=== PATIENT | male | born 1945 | race Caucasian/White ===

== ENCOUNTER 2025-02-25 12:38 | Inpatient (IN) | payer MEDICARE, BC, SELFPAY ==
[2025-02-25] VITALS (14 sets, daily range): BP systolic 136–161; BP diastolic 70–81; PULSE 81–98; RESP 12–19; TEMP 36.6–37.4; O2SAT 95–100; BMI 25.9
--- NOTE | ~2025-02-25 | XR_ITS ---
EXAMINATION: XR knee LT 3V, XR knee RT 3V DATE: 02/25/2025 16:36 INDICATION: Bilateral knee pain post fall TECHNIQUE: 1. Anteroposterior, oblique and crosstable lateral views of the right knee were obtained 2. Anteroposterior, oblique and crosstable lateral views of the left knee were obtained COMPARISON: None. FINDINGS: Right knee: Alignment is normal. No fracture. Joint spaces appear normal but could be underestimated on nonweight bearing imaging. Enthesophytes at the tibial and patellar insertions of the distal quadriceps and pro ximal patellar tendons. No joint effusion/layering lipohemarthrosis. Soft tissues are unremarkable. Left knee: Alignment is normal. No fracture. Joint spaces appear normal but could be underestimated on nonweight bearing imaging. Enthesophytes at the tibial and patellar insertions of the distal quadriceps and pro ximal patellar tendons. No joint effusion/layering lipohemarthrosis. Soft tissues are unremarkable. IMPRESSION: 1. No joint effusions or acute osseous abnormality at either knee. Reviewed, dictated and finalized at location A. IMPRESSION: 1. No joint effusions or acute osseous abnormality at either knee.
--- NOTE | ~2025-02-25 | XR_ITS ---
EXAMINATION: XR pelvis 1-2V DATE: 02/25/2025 16:36 INDICATION: Pelvic pain post fall. Unable to get up. TECHNIQUE: An anteroposterior view of the pelvis was obtained. COMPARISON: None. FINDINGS: Bone alignment is normal. No fracture. L4 laminectomy. L3-L5 instrumented posterior spinal fusion wit h bilateral vertical makayla and pedicle screw fixation. Mild to moderate bilateral hip and sacroiliac os teoarthritis. Soft tissues are unremarkable. IMPRESSION: 1. 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 No acute osseous abnormality. Reviewed, dictated and finalized at location A. IMPRESSION: 1. 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 No acute osseo us abnormality.
--- NOTE | ~2025-02-25 | CT_ITS ---
History: Blunt head trauma PROCEDURE: CT head without contrast. COMPARISON: None TECHNIQUE: Axial imaging of the head performed from the skull base to the vertex without IV contrast. Sagittal a nd coronal reformations obtained. DLP: 757 mGy-cm FINDINGS: The ventricles are enlarged. The dilatation of the ventricles is proportional to the degree of sulcal prominence, not uncommon in the senescent brain. Decreased attenuation is identified within the periventricular white matter, likely secondary to micr ovascular ischemic disease, in a patient of this age. There is no mass, mass effect or midline shift. There is no abnormal extra-axial fluid collection or intracranial hemorrhage. Visualized paranasal sinuses are clear. The mastoid air cells are well aerated. No acute displaced fractures within the overlying cranium. Impression: No acute intracranial hemorrhage or suspicious mass effect. Reviewed, dictated and finalized at location A. Impression: No acute intracranial hemorrhage or suspicious mass effect.
--- NOTE | ~2025-02-25 | XR_ITS ---
EXAMINATION: XR chest 1V portable DATE: 02/27/2025 08:34 INDICATION: Altered mental status TECHNIQUE: frontal view of the chest was obtained. COMPARISON: None FINDINGS: Linear discoid atelectasis at the lateral left lower lung zone. No other airspace opacities, pulmonar y edema, pleural effusion or pneumothorax. The cardiomediastinal silhouette is normal. Moderate osteo arthritis at the right glenohumeral joint. Anterior plate-screw fixation for lower cervical and submi tted anterior spinal fusion. IMPRESSION: 1. Mild discoid atelectasis in the left lower lung zone. No other acute cardiopulmonary disease. Reviewed, dictated and finalized at location A. IMPRESSION: 1. Mild discoid atelectasis in the left lower lung zone. No other acute cardiop ulmonary disease.
--- OUTSIDE RECORDS SUMMARY | 2025-02-25 12:40 | XMS_ITS | Referral Summary ---
Author Organization [facility] Address [address] [place] [address] Care Team Providers Care School Lunch Monitor Name Role Phone Suhas Lockhart MD Unavailable [phone] Holly Arrieta OD Unavailable [phone] Neo Sykes MD Unavailable Morales Palumbo MD Unavailable [phone] Royal Jarrell Howe MD Unavailable [phone] Kenroy Gaviria MD Unavailable Palak Lees NP Primary Care Provider Veronica Betancur RN Unavailable Encounters Date Type Department Care Team Description 01/14/2025 Telephone Family Care at [address] [address] Palak Lees NP Medical Question/Miscellaneous from Last 3 Months Allergies Active Allergy Reactions Criticality Noted Date Comments Quinapril Cough Low 08/25/2008 Medications nicotine polacrilex (NICORETTE) 4 mg gum Chew 1 each (4 mg total) as needed for smoking cessation Active finasteride (PROSCAR) 5 mg tabletIndications: benign prostatic hyperplasia with lower urinary tract sx Take 1 tablet (5 mg total) by mouth nightly 09/07/19 21 Active aspirin 81 mg enteric coated tablet Take 1 tablet (81 mg total) by mouth daily Active sennosides (SENNA LAXATIVE ORAL)Indications:c onstipation Take 1 tablet by mouth daily. Indications: constipation Active polyethylene glycol 3350 (MIRALAX ORAL)Indications:c onstipation Take 17 g by mouth daily. Indications: constipation Active famotidine (PEPCID) 20 mg tabletIndications: Gastroesophageal reflux disease without esophagitis Take 1 tablet (20 mg total) by mouth nightly as needed for heartburn 90 tablet 04/08/20 23 Active tamsulosin (FLOMAX) 0.4 mg extended release capsule Take 1 capsule (0.4 mg total) by mouth every morning 90 capsule 3 04/15/20 23 Active lactulose solution 10 gram/15mL Take 30 mL (20 g total) by mouth daily as needed (Constipation (no stools in 2-3 days)) 473 mL 3 05/20/20 23 Active Linzess 145 mcg capsuleIndications :Chronic constipation TAKE 1 CAPSULE BY MOUTH DAILY 90 capsule 3 06/14/20 23 Active blood-glucose transmitter ([employer] G6 Transmitter) deviceIndications: Type 2 diabetes mellitus with hyperlipidemia ([facility]),Controlled type 2 diabetes mellitus with hyperglycemia, with long-term current use of insulin ([facility]) Use to continuously monitor blood glucose 1 each 07/09/20 23 Active fluticasone propionate (FLONASE) 50 mcg/actuation nasal sprayIndications:C hronic bronchitis, unspecified chronic bronchitis type ([facility]) Administer 2 sprays into each nostril daily as needed for rhinitis 1 each 07/09/20 23 Active lancets miscIndications:Ty pe 2 diabetes mellitus with hyperlipidemia ([facility]),Uncontrolled type 2 diabetes mellitus with hyperglycemia ([facility]) Test blood sugar three times daily 300 each 3 09/05/[address] (PROTONIX) 40 mg EC tabletIndications: Gastroesophageal reflux disease without esophagitis Take 1 tablet (40 mg total) by mouth creeler before breakfast 90 tablet 3 05/21/20 24 025 Active gabapentin (NEURONTIN) 100 mg capsuleIndications :Neuropathic Pain Take 1 capsule (100 mg total) by mouth 3 (three) times a day 270 capsule 3 05/21/20 24 025 Active triamcinolone (KENALOG) 0.1 % ointmentIndication s:skin rash Apply topically 2 (two) times a day Lower legs 90 g 06/01/20 24 Active insulin glargine (LANTUS) 100 unit/mL (3 mL) pen for injectionIndicatio ns:Uncontrolled type 2 diabetes mellitus with hyperglycemia (HCC) INJECT 40 TO 50 UNITS SUBCUTANEOUSLY IN THE MORNING 45 mL 3 06/01/20 24 Active atorvastatin (LIPITOR) 80 mg tabletIndications: Uncontrolled type 2 diabetes mellitus with hyperglycemia (HCC),Coronary artery disease of [place] artery of [place] heart with stable angina pectoris,Mixed hyperlipidemia Take 1 tablet (80 mg total) by mouth daily 90 tablet 1 06/01/20 24 025 Active albuterol HFA (PROVENTIL HFA,VENTOLIN HFA,PROAIR HFA) 90 mcg/actuation inhalerIndications :Chronic bronchitis, unspecified chronic bronchitis type (HCC) Inhale 2 puffs every 4 (four) hours as needed for wheezing or shortness of breath 1 each 1 06/01/20 24 Active blood-glucose sensor deviceIndications: Type 2 diabetes mellitus with hyperlipidemia (HCC),Controlled type 2 diabetes mellitus with hyperglycemia, with long-term current use of insulin ([facility]) Use to continuously monitor blood sugar 1 each 06/29/20 24 Active budesonide-formote roL (SYMBICORT) 160-4.5 mcg/actuation inhalerIndications :Chronic bronchitis, unspecified chronic bronchitis type (HCC) USE 2 INHALATIONS BY MOUTH TWICE DAILY RINSE MOUTH AFTER USE DO NOT SWALLOW 30.6 g 3 08/18/19 25 Active glyBURIDE (DIABETA) 5 mg tabletIndications: Uncontrolled type 2 diabetes mellitus with hyperglycemia (HCC) TAKE 1 TABLET BY MOUTH TWICE DAILY WITH MEALS 180 tablet 3 08/18/19 25 Active metoprolol tartrate (LOPRESSOR) 50 mg immediate release tabletIndications: Hypertension complicating diabetes (HCC) TAKE 1 TABLET BY MOUTH EVERY NIGHT 90 tablet 3 08/18/19 25 Active Active Problems Problem Noted Date Diagnosed Date Fecal impaction 01/11/2023 Moderate malnutrition 10/22/2022 E coli bacteremia 10/22/2022 History of ulcerative colitis 10/22/2022 Gram-negative bacteremia 10/16/2022 s/p CE/ PCIOL /iris hooks OD (07/09/22) 07/10/20 22 Assessment & Plan (09/27/2022 11:34 AM ROLLER BEARING INSPECTOR): 3 month post op VA ph 20/40 OD with Mrx Ana drops did not help blurred vision OD Tr PCF OD, monitor for now Raffi OD (08/09/22): 0.93D of cyl - no SR Mac OCT (08/09/22): WNL / no cme PLAN MRx given today OU RTC 3 months w/ repeat MRx and confocal Assessment & Plan (08/30/2022 12:07 PM ROLLER BEARING INSPECTOR): 2 month post op VA ph 20/40 Faint D folds paracentrally - trial Ana gtts OD 3-4x/day in AM hrs Tr PCF Raffi OD at last visit: 0.93D of cyl - no SR Mac OCT at last visit: WNL / no cme PLAN PF QD OD for 2 weeks then stop RTC 1 mo with repeat MRx Assessment & Plan (08/09/2022 11:44 AM ROLLER BEARING INSPECTOR): 1 month post op VA 20/30 Tr cor edema temporally - clear centrally Tr PCF no cell or flare OD but still reports blurred vision OD IOP 12 Raffi OD today: 0.93D of cyl - no SR Mac OCT today: WNL / no cme PLAN PF BID until out Recheck MRx next visit RTC 1 mo Assessment & Plan (07/13/2022 9:17 AM ROLLER BEARING INSPECTOR): Improved VA (ph 20/40) Excellent IOP Decreased sup edema (1+) / C/F On Saturday change from TD to PF OD QID RTC 1 mo Assessment & Plan (07/10/2022 8:16 AM ROLLER BEARING INSPECTOR): 1 day post op CE/PCIOL/iris hooks OD VA and IOP as expected TD OD qid RTC Fri am Combined forms of age-related cataract of right eye 04/17/2022 Assessment & Plan (04/17/2022 2:27 PM CDT): BAT 20/100 Decreased ADLs(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 The patient understands these risks and wishes to proceed. Primary osteoarthritis of knees, bilateral 12/05 Quadriceps weakness 12/05/2021 Cyclical vomiting syndrome not associated with m igraine 11/23/2021 Assessment & Plan (11/23/2021 2:48 PM CDT): -ordered referral to GI -prescribed Zofran Chronic pain of right knee 11/23/2021 Post-nasal drip 03/18/2021 Assessment & Plan (03/18/2021 2:34 PM CDT): Start flonase 2 sprays daily Recommend ENT consultation for postnasal drip and dysphagia. Oropharyngeal dysphagia 03/18/2021 Assessment & Plan (03/18/2021 2:34 PM CDT): Recommend ENT consultation for postnasal drip and dysphagia. Overweight (BMI 25.0-29.9) 03/18/2021 Assessment & Plan (03/18/2021 2:37 PM CDT): -Body mass index is 28.13 kg/m . For a healthy weight should have BMI between 20-24.9 kg/m2. -Discussed with patient My[employer]ate dietary and exercise recommendations, 30 minutes moderate activity at least 5 days per week. (150 minutes total). -Discussed risk factors associated with obesity including risk for diabetes, hypertension, hyperlipidemia, and some types of cancer. 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 Unfortunately he is not very happy with his result however I told him that anatomically everything looks perfect and I did not think any other retinal intervention is necessary. I have encouraged him to keep his scheduled point with Dr. Martínez. He would like a second opinion and will arrange for him to meet one of our anterior segment surgeons for another opinion. Assessment & Plan (10/24/2020 4:10 PM CDT): Has persistent pain, without signs intra-ocular infection. He does have a mild episcleritis associated with the sutures at the limbus. I have asked that he increase his Pred Forte to every 2 hours, and stay on his other topical drops. I have asked that he see Dr. Martínez tomorrow morning for evaluation of the sutures and to assess whether the sutures need to be removed. (Dr. Martínez was kind enough to discuss the case with me this afternoon.) Assessment & Plan (10/07/2020 8:27 AM ROLLER BEARING INSPECTOR): Here for IOP check off diamox. IOP consistent at 9. Discontinue lumigan OS, stay of PO diamox. Continue other post-operative meds (Predforte, polytrim, bromfenac). Med list updated. Patient reassured that erythema is improving and will resolve with time. Stable vision and lack of cell or hypopyon are reassuring that he is not developing endophthalmitis Return to clinic for post-op week 1 appointment. Altitude precautions reviewed. Assessment & Plan (10/05/2020 8:39 AM ROLLER BEARING INSPECTOR): One day status post PPV/PPLx/AFx to the left eye. Doing well. Restart polytrim and prednisolone 4x/day, lumigan and prolensa 1x/day. Shield operated eye. Can stop neptazane. Post Op Position:None. Altitude precautions were reviewed with patient. No strenuous activity. Return to clinic in Saturday for IOP check. Assessment & Plan (10/02/2020 1:21 PM ROLLER BEARING INSPECTOR): IOP okay, vision/cornea improving Continue to monitor with plan for surgery Saturday All questions regarding surgery answered Assessment & Plan (09/30/2020 12:28 PM ROLLER BEARING INSPECTOR): Intra-ocular pressure is good at 15 today, corneal edema is present. He is currently using pole lens the Polytrim antibiotics Pred Forte Neptazane and Lumigan. I have encouraged him to stay on his topical regimen unfortunately he does not have his medications with him today. Will arrange to check his pressure over the weekend, and make preparations for surgery which would include vitrectomy and lensectomy to the left eye on Saturday. Risks, benefits and alternatives for surgery include by not limited to infection, bleeding, damage to the eye, loss of vision, loss of the eye,deformity, diplopia, increased IOP, cataract, need for new refraction, RD, RT, gas injection, post op positioning, altitude precautions, silicone oil placement, need for additional surgery, inflammation to one or both eyes, no guarantees were made, and the guarded prognosis was discussed with the patient. Reviewed with them that is a teaching institution and that trainees, medical students, residents, fellows may be involved in their care and may be preforming parts of the procedure, however an attending doctor would be present to assure everything went as well as possible.They understand and wish to proceed. Nuha Hogan - [phone] () 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 His discomfort is variably described as left parasternal, left chest discomfort, and left upper abdominal quadrant. No response to sublingual nitroglycerin. Recent electrocardiogram unremarkable. Plan: Lexiscan stress test Chronic bronchitis 05/05/2020 Assessment & Plan (07/25/2023 12:11 PM ROLLER BEARING INSPECTOR): Albuterol 90 mcg HFA, symbicort 160/4.5 mcg Assessment & Plan (03/18/2021 2:32 PM CDT): Continue Spiriva, Symbicort 2 puffs BID rinse mouth after use. Albuterol PRN. LAW requested from pulmonology notes today. Reviewed warning signs and symptoms of when to seek emergency care including shortness of breath unrelieved with albuterol inhaler. Pulmonology consult as previously ordered. Discussed importance of seeing specialist. Recommend pulmonary function studies, but considering I would like him to see pulmonology will defer testing to pulmonology. Assessment & Plan (12/28/2020 11:55 AM CDT): Restart Symbicort 2 puffs BID rinse mouth after use. Albuterol PRN. Add Spiriva once daily. Can continue tessalon Perles PRN Reviewed warning signs and symptoms of when to seek emergency care including shortness of breath unrelieved with albuterol inhaler. Pulmonology consult as previously ordered. Discussed importance of seeing specialist. Recommend pulmonary function studies, but considering I would like him to see pulmonology will defer testing to pulmonology. Assessment & Plan (05/09/2020 1:04 PM CDT): Restart Symbicort 2 puffs BID rinse mouth after use. Albuterol PRN. Reviewed warning signs and symptoms of when to seek emergency care including shortness of breath unrelieved with albuterol inhaler. Chest tightness 05/05/2020 Assessment & Plan (05/09/2020 1:02 PM CDT): Recommended follow up with his resource paraprofessional as soon as possible. CXR ordered today. Reordered nitroglycerine to use PRN. Discussed safety of use. Discussed warning signs of when to seek emergency care for chest pain including chest pain that does not go away, severe in nature, associated dizziness, shortness of breath or fatigue. 07/11/2018 Negative pharmacologic stress ECG. Seasonal allergies 05/05/2020 Assessment & Plan (05/09/2020 1:05 PM CDT): Add Flonase 2 sprays each nostril daily. Incontinence of feces 02/03/2020 Assessment & Plan (02/03/2020 12:27 PM CDT): Recommended consultation with Colorectal surgery given history of rectal surgeries in the 1980s and 90s. Microalbuminuria 05/05/2019 Overview (05/05/2019): 05/05/2019 repeat in 3 months. Assessment & Plan (05/09/2020 1:05 PM CDT): Repeat today. Benign prostatic hyperplasia with urinary hesita ncy 05/01/2019 Assessment & Plan (05/09/2020 1:01 PM CDT): Recommend keeping follow-up with Urology. Continue tamsulosin. Patient reports taking BID. Assessment & Plan (05/01/2019 9:19 PM CDT): Recommended Urology consultation. Continue tamsulosin 0.4 mg b.i.d.. Will get PSA today. Anxiety 05/01/2019 Assessment & Plan (07/25/2023 12:10 PM ROLLER BEARING INSPECTOR): Briefly discussed options for treatment (therapy vs medication vs both) Assessment & Plan (05/01/2019 9:20 PM CDT): Discussed that Xanax t.i.d. Is not appropriate treatment for underlying anxiety. If he is needing treatment for anxiety we can discuss other long-term options. He is taking Xanax very infrequent, will discontinue at this time. 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 Whether his episodic dyspnea represents a symptom of ischemic heart disease is unclear. Several years since his last evaluation. Will arrange for a Lexiscan stress test. It appears that he stopped aspirin. He has been asked to resume this. Continue Lipitor. Assessment & Plan (11/23/2021 2:41 PM CDT): -encouraged to continue taking medications as prescribed Assessment & Plan (03/18/2021 2:33 PM CDT): Lipids due 04/2021 Continue atorvastatin 40 mg daily, gemfibrozil 600 mg bid, aspirin 81 mg daily. Recommend working with endocrinology for tight glucose control. Nitroglycerin reordered to use as needed for angina. Assessment & Plan (05/09/2020 1:04 PM CDT): Patient will schedule follow-up with his resource paraprofessional. Continue atorvastatin 40 mg daily, aspirin 81 mg daily. Recommend working with endocrinology for tight glucose control. Nitroglycerin reordered to use as needed for angina. Assessment & Plan (02/03/2020 12:27 PM CDT): Recommended follow-up with Cardiology annually. Continue statin, antihypertensives, strict diabetes control and aspirin. Spent a significant amount of time discussing importance of compliance of medical therapy and importance of regular follow-up with his specialists and blue line trimmer. Assessment & Plan (05/29/2019 10:26 AM CDT): Doing well. Continue current therapy. Assessment & Plan (05/01/2019 9:18 PM CDT): Recommended follow-up with Cardiology annually. Continue statin, antihypertensives, strict diabetes control and aspirin. Spent a significant amount of time discussing importance of compliance of medical therapy and importance of regular follow-up with his specialists and blue line trimmer. Assessment & Plan (01/31/2018 2:20 PM CDT): Appears to be well controlled on his current regimen. Discontinue Plavix as it no longer appears to be necessary Type 2 diabetes mellitus with hyperlipidemia ([facility] S/HCC) 09/12/2016 Overview (10/31/2016): Hyperlipidemia Assessment & Plan (07/25/2023 12:08 PM ROLLER BEARING INSPECTOR): Ordered Dexcom continuous glucometer and supplies Lantus 40-50 units qam Glyburide 5 mg Gabapentin 100 mg TID Lab Results Component Value Date HGBA1C 8.5 04/08/2023 Assessment & Plan (08/15/2022 4:53 PM ROLLER BEARING INSPECTOR): Recent lipid panel reveals a total cholesterol of 153 mg/dL. LDL can not be calculated because of excessive triglycerides which are likely result of the patient's poorly controlled diabetes. Continue Lipitor. Assessment & Plan (03/18/2021 2:34 PM CDT): Lipids due 04/2021. Stable. Continue current therapy. Assessment & Plan (05/11/2020 2:11 PM CDT): Last lipid panel reviewed with patient. His LDL at that time was 57 mg/dL. Continue current therapy. Assessment & Plan (05/09/2020 1:05 PM CDT): Lipid abnormalities are unchanged. Nutritional counseling was provided., Pharmacotherapy as ordered. Lipids due today. Lipids will be reassessed in 3 months. Assessment & Plan (02/03/2020 12:28 PM CDT): Lipid abnormalities are unchanged. Nutritional counseling was provided., Pharmacotherapy as ordered. Lipids due April 2020 Lipids will be reassessed in 3 months. Assessment & Plan (05/29/2019 10:27 AM CDT): Well controlled based on most recent lipid panel. Continue current therapy. Of note, records indicate that he has not been taking Lopid for over a year so will remove that agent from his medication list Assessment & Plan (05/01/2019 9:16 PM CDT): Lipid abnormalities are Going to be assessed today. Nutritional counseling was provided., Pharmacotherapy as ordered. and Will request records from blue line trimmer. See note below Lipids will be reassessed in 3 months. Assessment & Plan (01/31/2018 2:19 PM CDT): Office lipid panel demonstrates significant elevation in triglycerides. Patient reports that his diabetes is very poorly controlled likely as an explanation for this finding. Plan: Obtain a direct LDL Uncontrolled type 2 diabetes mellitus with hyper glycemia 09/12/2016 Overview (11/01/2016): Complication due to diabetes mellitus type 2 Assessment & Plan (07/09/2024 1:17 PM ROLLER BEARING INSPECTOR): Today's A1c 9.6 Reasonable goal less than 7.5 Medication compliance seems to be an issue, I do also note some mild memory impairment today CGM with continuous use Cream.HR Tammy Continue insulin glargine 40-50 units daily a.m. Glimepiride 5 mg b.I.d. with meal Encouraged to take medications daily as prescribed Three-month follow-up for Medicare wellness Assessment & Plan (11/23/2021 2:46 PM CDT): -encouraged to keep all appointments with endocrine -continue taking medications as prescribed Assessment & Plan (03/18/2021 2:37 PM CDT): Continue with Dr. Gaviria. If making adjustments to his insulin recommended conversation with his endocrinology team. He is sometimes nonadherent to his therapy, which is likely contributing to his uncontrolled and erratic blood sugars. Recommend dilated eye exam. Discussed importance of foot care. Discussed complications of uncontrolled diabetes including risk for diabetic retinopathy, neuropathy, risk for heart attack and stroke, nephropathy. Lab Results Component Value Date HGBA1C 10.6 12/23/2020 Has endocrinology follow up in 2 weeks and will have a1c retested at that time. Assessment & Plan (12/28/2020 11:53 AM CDT): Recommend regular follow up with endocrinology and medications as ordered. He would like a new blue line trimmer. Recommend Dr. Gaviria. I discussed with him that with his severely uncontrolled diabetes and complications of diabetes and insulin regimen he needs to see endocrinology. Recommend dilated eye exam. Discussed importance of foot care. Discussed complications of uncontrolled diabetes including risk for diabetic retinopathy, neuropathy, risk for heart attack and stroke, nephropathy. Assessment & Plan (06/30/2020 1:02 PM ROLLER BEARING INSPECTOR): Hba1c was Lab Results Component Value Date HGBA1C 9.1 06/30/2020 today, indicating poor DM control Goal blood sugars in the 120-150 range , with Hb1c under 7.0 % was explained 1800 calorie, consistent carb diet recommended. No more than 30-45 grams of carbs per meal recommended, as well as avoiding high concentrated sweet drinks . 25-45 min daily exercise, combining both aerobic and resistance exercise recommended. The need to monitor blood glucose before meals and bedtime was discussed. Prevention and treatment of hyypoglcyemia discussed. Pt with multiple concepts and ideas, Not following instructions . Your goal sugar is 120-150 Check your sugars twice a day, before breakfast and dinner Take Lantus, 60 units once a day Take 12 units of Novolog with breakfast and dinner If your sugars are over 200, take 15 units Assessment & Plan (05/09/2020 1:06 PM CDT): Continue regular follow up with endocrinology and medications as ordered. Recommend dilated eye exam. Discussed importance of foot care. Discussed complications of uncontrolled diabetes including risk for diabetic retinopathy, neuropathy, risk for heart attack and stroke, nephropathy. Assessment & Plan (02/16/2020 10:18 AM CDT): Hba1c was Lab Results Component Value Date HGBA1C 12.3 02/16/2020 today, indicating very poor DM control, in a patient with very poor insight into his condition . 1800 calorie, consistent carb diet recommended. No more than 30-45 grams of carbs per meal recommended, as well as avoiding high concentrated sweet drinks . 25-45 min daily exercise, combining both aerobic and resistance exercise recommended. The need to monitor blood glucose before meals and bedtime or at least , twice a day was discussed. Prevention and treatment of hyypoglcyemia discussed. Insulin dose: Take Lantus insulin , 50 units twice a day , morning and bedtime Take Novolog, 15 units with your meals, at least twice a day. If your sugars are over 200, take 20 units If your sugars are over 300,take 25 units Start Invokana, 100 mg daily Assessment & Plan (02/03/2020 12:26 PM CDT): Diabetes is worsening. Continue current treatment regimen. Reminded to bring in blood sugar diary at next visit. Dietary recommendations for ADA diet. Discussed sick day management. Discussed foot care. Reminded to get yearly retinal exam. Patient referred to endocrinology at [facility]. He has not followed up with his previous blue line trimmer in months. Discussed importance of taking insulin as prescribed. Will refill his Lantus until he gets into endocrinology. Diabetes will be reassessed in 3 months. Assessment & Plan (05/01/2019 9:19 PM CDT): Diabetes is unchanged. Continue current treatment regimen. Reminded to bring in blood sugar diary at next visit. Dietary recommendations for ADA diet. Discussed sick day management. Discussed foot care. Reminded to get yearly retinal exam. Patient sees endocrinology, records requested today. Discussed regular followups with endocrinology until glucose is controlled. Diabetes will be reassessed in 3 months. Hypertension complicating diabetes 11/02/2015 Overview (10/31/2016): Essential hypertension Assessment & Plan (07/25/2023 12:05 PM ROLLER BEARING INSPECTOR): Today's BP is 146/79 goal is < 140/90 amlodipine 5 mg, metoprolol 50 mg, and valsartan 160 mg Assessment & Plan (07/26/2022 7:54 AM ROLLER BEARING INSPECTOR): -goal is < 140/90 -amlodipine 5 mg, metoprolol 50 mg, and valsartan 160 mg -encouraged patient to eat a well-balanced heart healthy diet, drink plenty of water, be active for at least 10 minutes a day, and get at least 7 hours of quality sleep daily Assessment & Plan (11/23/2021 2:40 PM CDT): -encouraged patient to take all of her medications as prescribed -encouraged patient to eat a well-balanced heart healthy diet, drink plenty of water, be active for at least 10 minutes a day, and get at least 7 hours of quality sleep daily Assessment & Plan (03/18/2021 2:33 PM CDT): Hypertension is improving with treatment. Continue current treatment regimen. Dietary sodium restriction. Continue current medications. Blood pressure will be reassessed at the next regular appointment. Assessment & Plan (06/30/2020 1:03 PM ROLLER BEARING INSPECTOR): Goal blood pressure is less than 140/85 Low salt diet was discussed andd recommended The importance of daily aerobic exercise was also emphasized. Continue current meds, including GINGER-I or ARB, e.g. Check microalbumin Assessment & Plan (05/11/2020 2:10 PM CDT): Currently well controlled. Continue current therapy. Assessment & Plan (05/09/2020 1:05 PM CDT): Hypertension is improving with treatment. Continue current treatment regimen. Dietary sodium restriction. Continue current medications. Blood pressure will be reassessed at the next regular appointment. Assessment & Plan (02/03/2020 12:27 PM CDT): Hypertension is improving with treatment. Continue current treatment regimen. Dietary sodium restriction. Continue current medications. Blood pressure will be reassessed at the next regular appointment. Assessment & Plan (05/29/2019 10:27 AM CDT): Reasonably well controlled. Continue current therapy. Assessment & Plan (05/01/2019 9:17 PM CDT): Hypertension is improving with treatment. Continue current treatment regimen. Dietary sodium restriction. Continue current medications. Will request records to review antihypertensive regimen. Patient reports being on metoprolol 50 mg daily, however previous records in 2018 note 50 mg b.i.d.. Blood pressure will be reassessed at the next regular appointment. Assessment & Plan (01/31/2018 2:20 PM CDT): Blood pressure reasonably well controlled. Continue current therapy. 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 S/P coronary artery stent placement 11/03/2010 Assessment & Plan (05/01/2019 9:15 PM CDT): Recommended follow-up with Cardiology. Continue aspirin and statin. Epididymoorchitis Resolved Problems Problem Noted Date Diagnosed Date Resolved Date UTI (urinary tract infection) 01/11/2023 01/11/2023 Sepsis, due to unspecified o rganism, unspecified whether acute organ dysfunction present 10/15/2022 01/11/2023 S/p CE/pciol w/ iris hooks OS(07/09/22) 07/10/2022 07/10/2022 Urinary incontinence 02/03/2020 021 Assessment & Plan (05/09/2020 1:07 PM CDT): Patient will be evaluated by urology 05/12/2020. Previously saw Dr. Lara for BPH and hesitancy. Assessment & Plan (02/03/2020 12:29 PM CDT): Hyperglycemia likely contributing, however patient has had history of BPH and hesitancy, previously saw Dr. Lara. Recommended urology consultation. Herpes zoster 04/09/2019 02/03/2020 Assessment & Plan (05/01/2019 9:16 PM CDT): Record follow up with optimal discussed importance of comprehensive eye exam given location of shingles. Dyspnea on exertion 05/17/2016 04/09/20 19 Overview (10/31/2016): Dyspnea on exertion Atherosclerosis of coronary artery 11/02/2015 04/09/2019 Overview (10/31/2016): Coronary atherosclerosis Myocardial infarction 11/02/20152018 Overview (10/31/2016): Myocardial infarction Urinary tract infection without hematuria 01/12/2023 Immunizations Immunization Administration Dates Next Due Influenza, Quadrivalent, Hig h Dose, Preservative Free, Intrr 05/02/2020 Influenza, Trivalent, High D ose, Split, Preservative Free, Intramuscular 05/03/2019,04/02/2018 Influenza, Unspecified 03/12/2023(Deferr ed: Patient Refused),09/21/2022(Deferred: Patient Refused),06/28/2022(Deferred: Patient Refused),05/02/2022,06/28/2021(Deferre d: Patient Refused),05/05/2021(Deferred: Patient Refused) Moderna SARS-CoV-2 Monovalen t Vaccination (12+ YRS) 09/27/2020,09/01/2020 Pneumococcal Conjugate PCV 13 05/03/2019 Pneumococcal, Unspecified 07/29/2016,07/29/2016 Tetanus Toxoid, Unspecified 07/29/2015, 6 Social History Tobacco Use Types Packs/Day Years Used Date Smoking Tobacco: Former Cigarettes 1 5 1 985 - 1990 Smokeless Tobacco: Never Tobacco Cessation:Counseling Given: No Alcohol Use Standard Drinks/Week Comments No 0 (1 standard drink = 0.6 oz pur e alcohol) OASIS D0700: Social Isolation Answer Da te Recorded Frequency of experiencing loneliness or isolatio n Never 11/15/2022 OASIS A1250: Transportation Answer Date Recorded Lack of Transportation (Medical) No 11/15/2022 Lack of Transportation (Non-Medical) No 11/15/2022 Patient Unable or Declines to Respond No 11/15/2022 OASIS B1300: Health Literacy Answer Teja e Recorded Frequency of needing help to read materials from doctor or pharmacy Never 11/15/2022 AUDIT-C Answer Date Recorded Q1: How often do you have a drink containing alcohol? Never 07/09/2022 Q2: How many drinks containi ng alcohol do you have on a typical day when you are drinking? Patient does not drink Q3: How often do you have si x or more drinks on one occasion? Never 07/09/2022 PHQ-2 Answer Date Recorded PHQ-2 Total Score 0 06/01/2024 PHQ-9 Answer Date Recorded PHQ-9 Total Score 0 06/01/2024 Personal Safety Answer Date Recorded Have you ever been in or are you currently in a harmful physical or emotional relationship or is someone making you feel afraid or unsafe? Denies 01/10/2023 Sex and Gender Information Value Date Recorded Sex Assigned at Not on file Legal Sex Male 4:08 PM ROLLER BEARING INSPECTOR Gender Identity Not on file Sexual Orientation Not on file Last Filed Vital Signs Vital Sign Reading Time Taken Comments Blood Pressure 145/69 06/01/2024 1:20 PM ROLLER BEARING INSPECTOR Pulse 82 06/01/2024 12:43 PM ROLLER BEARING INSPECTOR Temperature 36.2 C (97.1 F) 04/08/2023 8:12 AM CDT Respiratory Rate 20 06/01/2024 12:43 PM ROLLER BEARING INSPECTOR Oxygen Saturation 96% 04/08/2023 8:12 AM CDT Inhaled Oxygen Concentration - - Weight 77.1 kg (170 lb) 06/01/2024 12:43 PM ROLLER BEARING INSPECTOR Height 182.9 cm (6' 0.01) 06/01/2024 12:[address] Body Mass Index 23.05 06/01/2024 12:43 PM ROLLER BEARING INSPECTOR Plan of Treatment Not on file Medical Devices Implanted Type Area Machine Wiper Device Identifier Shelf Expiration Date Model / Serial / Lot [employer] [id number] 21.0 Tecnis Optiedge 6mm 13mm 3 Piece Anterior Aspheric Monofocal Uv - [id number] - [id number] Implanted:Qty: 1 on 09/28/2020 by Chip Martínez MD at [facility] Lens Left: Eye [employer] [id number] 06/02/2024 [id number] / [id number] / [employer] Acrysof Iq Natural Stableforce Acrysert 6mm 13mm 1 Piece Foldable [id number].210 - [id number] - [id number] Implanted:Qty: 1 on 07/09/2022 by Chin Steele MD at [facility] Lens Right: Lens [employer] [id number] 01/10/2027 [id number].21 0 / [id number] / Procedures Procedure Name Priority Date/Time Associated Diagnosis Comments POCT HEMOGLOBIN A1C Routine 06/01/2024 1 :44 PM ROLLER BEARING INSPECTOR Uncontrolled type 2 diabetes mellitus with hyperglycemia (HCC) DIABETIC EYE EXAM Routine 01/10/2024 EGFR Routine 07/09/2023 2:09 PM ROLLER BEARING INSPECTOR Annual physical exam Type 2 diabetes mellitus with hyperlipidemia (HCC) Hypertension complicating diabetes (HCC) Coronary artery disease of [place] artery of [place] heart with stable angina pectoris LIPID PANEL Routine 07/09/2023 2:09 PM ROLLER BEARING INSPECTOR Annual physical exam ALBUMIN CREATININE RATIO, URINE Routine 07/09/2023 2:09 PM ROLLER BEARING INSPECTOR Microalbuminuria from Last 3 Months or Most Recently Relevant to Health Maintenance Results * POCT hemoglobin A1c (06/01/2024 1:44 PM ROLLER BEARING INSPECTOR) Hemoglobin A1C, POC 9.6 4.0 - 5.6 % Blood 06/01/2024 1:44 PM ROLLER BEARING INSPECTOR Missy Dangelo NP POINT OF CARE TEST ORDERABL ES Final Result * (ABNORMAL) Diabetic Eye Exam (01/10/2024) Historical Provider HEALTH MAINTENANCE Final Result * eGFR (07/09/2023 2:09 PM ROLLER BEARING INSPECTOR) eGFR 41 mL/min/1. 73 m2 NAYA CROWLEY Comment: Interpretive Data Reference Interval Normal >/= 90 mL/min/1.73m2 Mildly decreased* 60 - 89 mL/min/1.73m2 Mildly to moderately decreased 45 - 59 mL/min/1.73m2 Moderately to severely decreased 30 - 44 mL/min/1.73m2 Severely decreased 15 - 29 mL/min/1.73m2 Kidney Failure < 15 mL/min/1.73m2 *Relative to young adult level Estimated glomerular filtration rate is determined by the 2020 CKD-EPI equation recommended by the National Kidney Foundation (A Unifying Approach to GFR Estimation: Recommendations of the NKF-ASK Task Force on Reassessing the Inclusion of Race in Diagnosing Kidney Disease, JASN 2020). The CKD-EPI equation should not be used for patients with unstable renal function and has not been validated in children and those over 70. Current interpretive data was last reviewed 2021. Blood 07/09/2023 2:09 PM ROLLER BEARING INSPECTOR 07/09/2023 8:52 PM ROLLER BEARING INSPECTOR Palak Lees NP LAB BLOOD ORDERABLES Final Resul t Performing Organization Address [facility] de Phone Number NAYA KEO [id number] [place] [employer] [address] * (ABNORMAL) Albumin Creatinine Ratio, Urine (07/09/2023 2:09 PM ROLLER BEARING INSPECTOR) Albumin Ur 167.3 mg/L NAYA Comment: Interpretive Data No reference range established. Current interpretive data was last revised 2018. Creatinine Ur 73.1 mg/dL NAYA Comment: Interpretive Data No reference range established. Current interpretive data was last revised 2018. Albumin Creatinine Ratio, Ur 229(H) 1 - 29 mg/g NAYA Urine 07/09/2023 2:09 PM ROLLER BEARING INSPECTOR 07/09/2023 8:37 PM ROLLER BEARING INSPECTOR Palak Lees NP LAB URINE ORDERABLES Final Resul t Performing Organization Address [facility] Co de Phone Number NAYA CROWLEY [id number] [place] [address] * (ABNORMAL) Lipid panel (07/09/2023 2:09 PM ROLLER BEARING INSPECTOR) Cholesterol 174 30 - 199 mg/dL NAYA Comment: Interpretive Data Ages < or = 19 years Acceptable: <170 mg/dL Borderline high: 170-199 mg/dL High: >or= 200 mg/dL Ages > or = 20 years Desirable: <200 mg/dL Borderline high: 200-239 mg/dL High: >or= 240 mg/dL Literature References: 1. Expert Panel on Integrated Guidelines for Cardiovascular Health and Risk Reduction in Children and Adolescents. Pediatrics 2011;128:S213 2. NCEP Expert Panel. Circulation 2004;110:227 Current Interpretive Data was last revised on 2018. Triglycerides 552(H) <=149 mg/dL NAYA CROWLEY Comment: Interpretive Data Ages < or = 9 years Acceptable: <75 mg/dL Borderline high: 75-99 mg/dL High: >or= 100 mg/dL Ages 10 to 20 years Acceptable: <90 mg/dL Borderline high: 90-129 mg/dL High: >or= 130 mg/dL Ages > or = 20 years Desirable: <150 mg/dL Borderline high: 150-199 mg/dL High: 200-499 mg/dL Very high: >or= 499 mg/dL Literature References: 1. Expert Panel on Integrated Guidelines for Cardiovascular Health and Risk Reduction in Children and Adolescents. Pediatrics 2011;128:S213 2. NCEP Expert Panel. Circulation 2004;110:227 Current Interpretive Data was last revised on 2018. HDL 28(L) >=40 mg/dL NAYA CROWLEY Comment: Interpretive Data Ages < or = 19 years Acceptable: >45 mg/dL Borderline low: 40-45 mg/dL Low: <40 mg/dL Ages > or = 20 years Desirable: >or= 60 mg/dL Low: <40 mg/dL Literature References: 1. Expert Panel on Integrated Guidelines for Cardiovascular Health and Risk Reduction in Children and Adolescents. Pediatrics 2011;128:S213 2. NCEP Expert Panel. Circulation 2004;110:227 Current Interpretive Data was last revised on 2018. LDL, calculated See Comment <=129 mg/dL NAYA CROWLEY Comment: Unable to calculate due to elevated Triglycerides. Interpretive Data Ages < or = 19 years Acceptable: <110 mg/dL Borderline high: 110-129 mg/dL High: >or= 130 mg/dL Ages > or = 20 years Optimal: <100 mg/dL Near optimal: 100-129 mg/dL Borderline high: 130-159 mg/dL High: >160 mg/dL Literature References: 1. Expert Panel on Integrated Guidelines for Cardiovascular Health and Risk Reduction in Children and Adolescents. Pediatrics 2011;128:S213 2. NCEP Expert Panel. Circulation 2004;110:227 Current Interpretive Data was last revised on 2018. Non-HDL Cholesterol 146 mg/dL NAYA CROWLEY Comment: Interpretive Data Ages < or = 19 years Acceptable: <120 mg/dL Borderline high: 120-144 mg/dL High: >145 mg/dL Ages > or = 20 years When triglycerides are >200 mg/dL, Non-HDL cholesterol is a secondary target of therapy with treatment goals that are 30 mg/dL greater than the LDL cholesterol target. Literature References: 1. Expert Panel on Integrated Guidelines for Cardiovascular Health and Risk Reduction in Children and Adolescents. Pediatrics 2011;128:S213 2. NCEP Expert Panel. Circulation 2004;110:227 Current Interpretive Data was last revised on 2018. Chol/HDL ratio 6 NAYA CROWLEY Blood 07/09/2023 2:09 PM ROLLER BEARING INSPECTOR 07/09/2023 8:36 PM ROLLER BEARING INSPECTOR Palak Lees NP LAB BLOOD ORDERABLES Final Resul t NAYA [id number] Department [place] [address] from Last 3 Months or Most Recently Relevant to Health Maintenance Additional Health Concerns Infection Onset Date Last Indicated MDR gram neg/ESBL 01/10/2023 01/10/2023 Insurance * Guarantor: Romain Hogan Account Type Relation to Patient Date of Phone Billing Address Personal/Family Self [address] [place] [address] MEDICARE [employer] OOS MEDICARE [employer] [facility] MEDICARE * Guarantor: Romain Hogan Account Type Relation to Patient Date of Phone Billing Address Personal/Family Self [address] [place] [address] MEDICARE BLUE ACCESS OOS Advance Directives For more information, please contact: [phone] * Full Code (Latest Code Status on File) Date Activated Date Inactivated Comments 01/11/2023 9:33 AM 01/12/2023 8:51 PM * Full Code Date Activated Date Inactivated Comments 09/28/2020 8:24 AM 09/28/2020 4:41 PM * Full Code Date Activated Date Inactivated Comments 08/29/2020 4:39 PM 08/30/2020 3:18 PM * Full Code Date Activated Date Inactivated Comments 08/29/2020 4:32 PM 08/29/2020 4:32 PM * Full Code Date Activated Date Inactivated Comments 08/29/2020 4:32 PM 08/29/2020 4:32 PM Care Teams School Lunch Monitor Relationship Specialty [place] [address] [facility] [address] [place] [address] PCP - General Nurse Practitioner 11/23/21 Suhas Lockhart MD Consulting Physician Ophthalmology 04/10/19 Holly Arrieta OD [address] [place] [address] Optometry 05/01/19 Neo Sykes MD [address] [place] [address] Consulting Physician Cardiology 05/01/19 Morales Palumbo MD [address] [place] [address] Consulting Physician Urology 06/30/20 [place] [address] [facility] [address] [place] [address] Consulting Physician Pulmonary Disease 03/17/21 [place] [address] [facility] [address] [place] [address] Consulting Physician Endocrinology Diabetes & Metabolism 03/17/21 Veronica Betancur RN [address] [place] [address] [facility] [address] [place] [address] Ceramic Mold Designer 06/03/24
--- OUTSIDE RECORDS SUMMARY | 2025-02-25 12:40 | XMS_ITS | Encounter Summary ---
Author Organization [employer] [facility] Address [address] [place] [address] Care Team Providers Care Press Setup Operator Name Role Phone Julee Lara Primary Care Provider [phone] Encounter Details Date Type Department Care Team (Late st Contact Info) Description 01/14/2008 Outpatient Historical [facility] Er, Authorized P NO ADDRESS ON FILE Jean Anderson MD [address] [address] Ginger Alex MD [address] [address] Other Chest Pain Social History Tobacco Use Types Packs/Day Years Used Date Smoking Tobacco: Never Assessed Sex and Gender Information Value Date Recorded Sex Assigned at Not on file Legal Sex Male 2:41 AM TAI CHI INSTRUCTOR Gender Identity Not on file Sexual Orientation Not on file documented as of this encounter Plan of Treatment Not on file documented as of this encounter Procedures Procedure Name Priority Date/Time Associated Diagnosis Comments TROPONIN Timed Study 01/14/2008 2:13 PM CDT POC GLUCOSE Routine 01/14/2008 12:43 PM CDT POC GLUCOSE Routine 01/14/2008 7:36 AM CDT TROPONIN (W/REFLEX CKMB/CK) Stat 01/14/2008 4:05 AM CDT CBC WITH DIFFERENTIAL Stat 01/14/2008 4:05 AM CDT COMPREHENSIVE METABOLIC PANEL Stat 01/14/2008 4:05 AM CDT XR CHEST PA OR AP 1 VW Stat 01/14/2008 4:04 AM CDT documented in this encounter Results * TROPONIN (01/14/2008 2:13 PM CDT) TROPONIN T <0.01 <=0.03 ng/mL [facility] TROPONIN T INTERP Negative [facility] Blood specimen (specimen) 01/14/2008 2:13 PM CDT 01/14/2008 2:19 PM CDT Jean Anderson MD CHEMISTRY ORDERABLES Edited Performing Organization Address City/[facility]/ZIP Co de Phone Number [facility] CLIA# [id number] [address] [place] [address] * (ABNORMAL) POC GLUCOSE (01/14/2008 12:43 PM CDT) GLUCOSE POC 226(H) 65 - 99 mg/dL [facility] Venous blood specimen (specimen) 01/14/2008 12:43 PM CDT 01/14/2008 12:43 PM CDT Ginger Alex MD POINT OF CARE TESTING Final R esult [facility] CLIA# [id number] [address] [place] [address] * (ABNORMAL) POC GLUCOSE (01/14/2008 7:36 AM CDT) GLUCOSE POC 211(H) 65 - 99 mg/dL [facility] Venous blood specimen (specimen) 01/14/2008 7:36 AM CDT 01/14/2008 7:36 AM CDT us Jean Anderson MD POINT OF CARE TESTING Final Resu lt [facility] CLIA# [id number] [address] [place], [place] [address] * CBC WITH DIFFERENTIAL (01/14/2008 4:05 AM CDT) HEMOGLOBIN 14.9 13.6 - 16.5 g/dL [facility] RDW 13.2 11.5 - 14.5 % [facility] WBC 7.5 4.0 - 9.8 K/uL [facility] MCH 30.6 27.2 - 32.6 pg [facility] MPV 10.2 9.3 - 12.4 fL [facility] HEMATOCRIT 43.0 40.0 - 48.0 % [facility] RDW-STDEV 42.0 37.1 - 48.7 fL [facility] RBC 4.87 4.50 - 5.40 M/uL [facility] MCHC 34.7 31.5 - 35.5 % [facility] MCV 88.3 82.0 - 99.0 fL [facility] PLATELETS 221 140 - 350 K/uL [facility] EOSINOPHIL ABSOLUTE 0.40 0.00 - 0.70 K/uL [facility] LYMPHOCYTES 29 16 - 45 % [facility] LYMPHOCYTE ABSOLUTE 2.19 0.70 - 4.50 K/uL [facility] BASOPHILS 0 0 - 2 % [facility] BASOPHILS ABSOLUTE 0.02 0.00 - 0.20 K/uL [facility] MONOCYTES 10 3 - 13 % [facility] MONOCYTE ABSOLUTE 0.71 0.10 - 1.30 K/uL [facility] NEUTROPHILS 55 45 - 70 % [facility] NEUTROPHIL ABSOLUTE 4.14 1.90 - 7.00 K/uL [facility] EOSINOPHILS 5 0 - 7 % [facility] Blood specimen (specimen) 01/14/2008 4:05 AM CDT 01/14/2008 4:06 AM CDT Don Campos MD HEMATOLOGY ORDERABLES Edited Performing Organization Address [facility] de Phone Number INTERFACE SYSTEM Refer to clinic/hospital department [facility] CLIA# [id number] [address] [place] [address] * TROPONIN (W/REFLEX CKMB/CK) (01/14/2008 4:05 AM CDT) TROPONIN T <0.01 <=0.03 ng/mL [facility] TROPONIN T INTERP Negative [facility] Blood specimen (specimen) 01/14/2008 4:05 AM CDT 01/14/2008 4:06 AM CDT Don Campos MD CHEMISTRY ORDERABLES Edited Performing Organization Address [facility] Co de Phone Number [facility] CLIA# [id number] [address] [place] [address] * (ABNORMAL) COMPREHENSIVE METABOLIC PANEL (01/14/2008 4:05 AM CDT) CREATININE 1.24(H) 0.67 - 1.17 mg/dL [facility] SODIUM 140 135 - 145 mmol/L [facility] ALT 24 0 - 41 U/L [facility] ALKALINE PHOSPHATASE 136(H) 40 - 129 U/L [facility] BILIRUBIN TOTAL 0.2 0.2 - 1.0 mg/dL [facility] CO2 25 22 - 30 mmol/L [facility] TOTAL PROTEIN 7.1 6.3 - 8.6 g/dL [facility] POTASSIUM 4.0 3.5 - 4.9 mmol/L [facility] GLUCOSE 196(H) 65 - 99 mg/dL [facility] AST 18 12 - 38 U/L [facility] BUN 24(H) 6 - 20 mg/dL [facility] CALCIUM 9.3 8.4 - 10.2 mg/dL [facility] CHLORIDE 105 96 - 108 mmol/L [facility] ALBUMIN 4.2 3.4 - 4.8 g/dL [facility] GFR, >60 >=60 mL/min/1. 7 sq meter [facility] GFR 59(L) >=60 mL/min/1. 7 sq meter [facility] Comment: Modification of Diet in Renal Disease (MDRD) study formula. Estimated GFR rate interpretative information for both Americans and non- Americans is available on the [facility] Intranet at: [email or web address] Select: Lab Policies and Procedures Select: Reference Ranges - GFR Blood specimen (specimen) 01/14/2008 4:05 AM CDT 01/14/2008 4:06 AM CDT us Don Campos MD CHEMISTRY ORDERABLES Edited [facility] CLIA# [id number] [address] [place] [address] * XR CHEST PA OR AP (01/14/2008 4:04 AM CDT) Anatomical Region Laterality Modality Chest Other 01/14/2008 4:04 AM CDT Narrative 01/14/2008 9:54 AM CDT [address] [address] [place], [place] [address] Admit Date: 01/14/2008 YARELY LENZ Sex: Martha Admit Prov: JEAN ANDERSON Date: 1945 Primary Care Prov: PCP , NONE CMRN: [id number] Room: [address] [place] [address] SSN: [id number] IMAGING SERVICES Ordering Prov: N/A Accession Number: [id number] Interpretation PORTABLE CHEST, 01/14/2008, 4:05 AM Clinical History: Epigastric abdominal pain. Findings: The heart, mediastinum and hilar shadows appear normal. The lungs are clear and well expanded. The pleural space is clear. Impression: Negative portable chest. . Dictated by: LEONOR ARMSTRONG 01/14/2008 09:23 Electronically signed by: LEONOR ARMSTRONG 01/14/2008 09:53 Transcribed: 01/14/2008 09:47 DKT Procedure Note Provider, Historical - 01/14/2008 [id number] [place], [place] [address] Admit Date: 01/14/2008 YARELY LENZ Sex: Martha Admit Prov: JEAN ANDERSON Date: 1945 Primary Care Prov: PCP , NONE CMRN: [id number] Room: [address] [place] [address] SSN: [id number] IMAGING SERVICES Ordering Prov: N/A Interpretation PORTABLE CHEST, 01/14/2008, 4:05 AM Clinical History: Epigastric abdominal pain. Findings: The heart, mediastinum and hilar shadows appear normal. Thelungs are clear and well expanded. The pleural space is clear. Impression: Negative portable chest. . Dictated by: LEONOR ARMSTRONG 01/14/2008 09:23 Electronically signed by: LEONOR ARMSTRONG 01/14/2008 09:53 Transcribed: 01/14/2008 09:47 DKT Don Campos MD DIAGNOSTIC IMAGING ORDERABLES F inal Result documented in this encounter Visit Diagnoses Diagnosis Other chest pain documented in this encounter Care Teams Press Setup Operator Relationship Specialty Start Date End Date Manuel Lara MD PCP - General 08/26/08 documented as of this encounter
--- OUTSIDE RECORDS SUMMARY | 2025-02-25 12:40 | XMS_ITS | Encounter Summary ---
Author Organization [facility] Address [address] [place] [address] Care Team Providers Care Writing Tutor Name Role Phone Julee Lara Primary Care Provider [phone] Encounter Details Date Type Department Care Team (Late st Contact Info) Description 01/02/2005 Outpatient Historical [facility] [address] [place] [address] 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
--- OUTSIDE RECORDS SUMMARY | 2025-02-25 12:40 | XMS_ITS | Clinical Summary ---
Author Organization [facility] Administrative Offices Address [address] [place] [address] Care Team Providers Care Contract Specialist Name Role Phone Julee Lara Primary Care Provider [phone] Allergies Active Allergy Reactions Criticality Noted Date Comments Quinapril Cough Low 08/25/2008 Medications GEMFIBROZIL 600 mg Oral Tab Take 600 mg by mouth 2 times daily. Active ASPIRIN 81 mg Oral Tab Take 81 mg by mouth daily. Active glyBURIDE (DIABETA) 5 mg Oral Tab Take 10 mg by mouth 2 times daily. Active valsartan (DIOVAN) 160 mg Oral tablet Take 1 Tab by mouth daily. 90 Tab 3 0 Active pantoprazole (PROTONIX) 40 mg Oral TbEC Take 1 Tab by mouth 2 times daily. 60 Tab none 1 Active insulin glargine (LANTUS) 100 unit/mL subCUT Inject 40 Units by subcutaneous injection 2 times daily . Active INSULIN ASPART (NOVOLOG FLEXPEN SUBCUT) Inject by subcutaneous injection. Sliding scale Active tamsulosin (FLOMAX) 0.4 mg Oral capsule Take 1 Cap by mouth daily. 30 Cap 1 3 Active clopidogrel (PLAVIX) 75 mg Tablet Take 75 mg by mouth. Active amLODIPine (NORVASC) 5 mg tablet Take 5 mg by mouth daily. Active ciprofloxacin HCl (CIPRO) 500 mg tablet Take 1 Tablet by mouth 2 times daily. 20 Tablet 07/20/2017 2:[address] GANG SUPERVISOR 7 Active metroNIDAZOLE (FLAGYL) 500 mg tablet Take 1 Tablet by mouth 3 times daily. 30 Tablet 07/20/2017 2:[address] GANG SUPERVISOR 7 Active Active Problems Problem Noted Date Diagnosed Date Acute cystitis without hematuria 07/18/2017 Diverticulitis of large inte mendoza without perforation or abscess 07/18/2017 Lower abdominal pain 08/19/2011 UTI (lower urinary tract infection) 08/19/2011 Kidney stones 08/19/2011 Type 2 diabetes mellitus with complication 11/03 Erosive esophagitis 11/03/2010 GERD (gastroesophageal reflux disease) 1 Nausea with vomiting 11/03/2010 Bloating 11/03/2010 Azotemia 11/03/2010 S/P coronary artery stent placement 11/03/2010 Dysphagia 11/03/2010 Other and unspecified hyperlipidemia 08/25/2008 Essential hypertension, benign 08/25/2008 CAD (coronary artery disease) of artery bypass g raft 08/25/2008 Acute diverticulitis Urinary retention Family History Medical History Relation Name Comments Heart Attack Father Heart Disease Father Hypertension Father Heart Attack Sister Relation Name Status Comments Father Mother Alive Sister Alive Social History Tobacco Use Types Packs/Day Years Used Date Smoking Tobacco: Former Cigarettes 0 07/29/2000 - 07/29/2004 Alcohol Use Standard Drinks/Week Comments No 0 (1 standard drink = 0.6 oz pur e alcohol) Sex and Gender Information Value Date Recorded Sex Assigned at Not on file Legal Sex Male 2:[address] GANG SUPERVISOR Gender Identity Not on file Sexual Orientation Not on file Occupation Industry Job Start Date Job End Date Not on file Not on file Not on file Not on file Last Filed Vital Signs Vital Sign Reading Time Taken Comments Blood Pressure 133/60 07/20/2017 12:[address] GANG SUPERVISOR Pulse 80 07/20/2017 12:[address] GANG SUPERVISOR Temperature 36.8 C (98.3 F) 07/20/2017 12:[address] GANG SUPERVISOR Respiratory Rate 18 07/20/2017 12:[address] GANG SUPERVISOR Oxygen Saturation 94% 07/20/2017 12: [address] GANG SUPERVISOR Inhaled Oxygen Concentration - - Weight 100.6 kg (221 lb 11.2 oz) 07/18/2017 7:[address] GANG SUPERVISOR Height 182.9 cm (6') 07/18/2017 7:[address] GANG SUPERVISOR Body Mass Index 30.07 07/18/2017 7:[address] GANG SUPERVISOR Plan of Treatment Health Maintenance Due Date Last Done Comments DIABETES ANNUAL FOOT EXAM 1961 DIABETES ANNUAL RETINAL EXAM 1961 DIABETES MICROALBUMIN ANNUAL SCREEN 1961 DTAP/TDAP/TD VACCINES (1 - Tdap) 1962 PNEUMOCOCCAL VACCINE 50+ YEA RS (1 of 2 - PCV) 1962 ZOSTER VACCINE (1 of 2) 1993 LDL CHOLESTEROL ANNUAL 08/16/2010 08/16/2009, 2006 DIABETES HBA1C Q 6 MONTHS 01/16/20182016, 08/20/2011, 08/16/2009 RSV VACCINE (60+ or ) (1 - 1-dose 75+ series) 2018 INFLUENZA VACCINE (#1) 2025 Procedures Procedure Name Priority Date/Time Associated Diagnosis Comments HEMOGLOBIN A1C Routine 07/18/2017 11:[address] GANG SUPERVISOR LIPID PANEL Routine 08/16/2009 9:[address] GANG SUPERVISOR Urinary Tract Infection, Site not Specified Enlarged Prostate DM (Diabetes Mellitus) [facility] Pure Hyperglyceridemia from Last 3 Months or Most Recently Relevant to Health Maintenance Results * (ABNORMAL) HEMOGLOBIN A1C (07/18/2017 11:[address] GANG SUPERVISOR) HEMOGLOBIN A1C 10.2(H) 4.0 - 6.0 % 07/18/2017 7:[address] GANG SUPERVISOR [facility] EST. AVG GLUCOSE, A1C 246 mg/dL 07/18/2017 7:[address] GANG SUPERVISOR [facility] Blood Venipuncture / Unknown 07/18/2017 11:[address] GANG SUPERVISOR 07/18/2017 11:[address] GANG SUPERVISOR Mathew Stapleton MD CHEMISTRY ORDERABLES Final Re sult [facility] CLIA# [id number] [address] [place] [address] * (ABNORMAL) LIPID PANEL (08/16/2009 9:[address] GANG SUPERVISOR) CHOLESTEROL 152 100 - 199 mg/dL [facility] TRIGLYCERIDE 204(H) 10 - 149 mg/dL [facility] HDL 32(L) 40 - 59 mg/dL [facility] CHOL/HDL RATIO 4.8 2.0 - 5.0 [facility] LDL CALCULATED 79 <=99 mg/dL [facility] LIPID PANEL COMMENT See Below [facility] Comment: The adult ATP and pediatric NCEP classifications for lipids are available on the [facility] Intranet at: [email or web address] Select: Lab Policies and Procedures,Current Select: Lipid Panel Interpretation Blood specimen (specimen) 08/16/2009 9:[address] GANG SUPERVISOR 08/16/2009 1:[address] GANG SUPERVISOR Manuel Lara MD CHEMISTRY ORDERABLES Edited [facility] CLIA# [id number] [address] [place] [address] from Last 3 Months or Most Recently Relevant to Health Maintenance Insurance MEDICARE PART A AND B [employer] BLUE ACCESS/TRUE BLUE PPO * Guarantor: Romain Hogan Account Type Relation to Patient Date of Phone Billing Address Personal/Family Self 1945 [address] [place] [address] [employer] Medicare Part D Advance Directives For more information, please contact: [phone] * Full Code (Latest Code Status on File) Date Activated Date Inactivated Comments 07/18/2017 5:39 PM 07/20/2017 4:50 PM * Full Code Date Activated Date Inactivated Comments 08/19/2011 9:54 AM 08/21/2011 5:17 PM * Full Code Date Activated Date Inactivated Comments 11/03/2010 1:04 PM 11/04/2010 11:14 AM * Full Code Date Activated Date Inactivated Comments 11/03/2010 5:08 AM 11/03/2010 1:04 PM Care Teams Contract Specialist Relationship Specialty Start Date End Date Manuel Lara MD PCP - General 08/26/08
--- OUTSIDE RECORDS SUMMARY | 2025-02-25 12:40 | XMS_ITS | Clinical Summary ---
Author Organization [facility] [employer] Address [address] [place] [address] Care Team Providers Care Shrimp Packer Name Role Phone Dimitri Benton MD Primary Care Provider [phone] Source Comments [facility],non-owned Affiliates and Associated Physician Practices is amultiple site organization consisting of ambulatory clinics and hospital sitesin [place], [place], [place]. This disclosure is being madepursuant to the Care Everywhere program and may not contain all information available regarding this patient. Last updated 18.[facility] Allergies No known active allergies Medications * Be aware that medications may not be up to date on this document. Alwaysverify current medications with the patient. clopidogrel (PLAVIX) 75 MG tablet Take 75 mg by mouth daily. Active insulin detemir (LEVEMIR) injection Inject 55 Units subcutaneously at bedtime. Active glyBURIDE (DIABETA; MICRONASE) 2.5 MG tablet Take 2 mg by mouth daily with breakfast. 2 in morning, 2 at night Active aspirin 81 MG chew tablet Take 81 mg by mouth daily. Active valsartan (DIOVAN) 160 MG tablet Take 160 mg by mouth daily. Active gemfibrozil (LOPID) 600 MG tablet Take 600 mg by mouth daily. Active pantoprazole EC (PROTONIX) 40 MG tablet Take 40 mg by mouth daily. Active meclizine (ANTIVERT) 12.5 MG tablet Take 12.5 mg by mouth 3 times daily as needed for Dizziness. Active alprazolam (XANAX) 0.25 MG tablet Take 0.25 mg by mouth 3 times daily as needed for Anxiety. 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 Gender Identity Not on file Sexual Orientation Not on file Last Filed Vital Signs Vital Sign Reading Time Taken Comments Blood Pressure 124/71 03/25/2009 10:25 AM CDT Pulse 54 03/25/2009 10:25 AM CDT Temperature 36.4 C (97.5 F) 03/25/2009 10:00 AM CDT Respiratory Rate 20 03/25/2009 10:25 AM CDT Oxygen Saturation 98% 03/25/2009 10:25 AM CDT Inhaled Oxygen Concentration - - Weight 108.9 kg (240 lb) 03/25/2009 8:51 AM CDT Height 182.9 cm (6') 03/25/2009 8:51 AM CDT Body Mass Index 32.55 03/25/2009 8:51 AM CDT Plan of Treatment Health Maintenance Due Date Last Done Comments DTAP/TDAP/TD VACCINES (1 - Tdap) 1962 PNEUMOCOCCAL VACCINE 50+ (1 of 1 - PCV) 1993 ZOSTER VACCINE (1 of 2) 1993 Respiratory Syncytial Virus (RSV) Vaccine Pt: or over 60 yrs (1 - 1-dose 75+ series) 2018 COVID-19 VACCINE ( - 2023-2 5 season) 2024 DEPRESSION SCREENING 07/29/2024 INFLUENZA VACCINE (#1) 2025 HEPATITIS B VACCINE Aged Out No longe r eligible based on patient's age to complete this topic HIB VACCINE Aged Out No longer eligi ble based on patient's age to complete this topic HPV VACCINE Aged Out No longer eligi ble based on patient's age to complete this topic MENINGOCOCCAL (Group B) VACC INE SHARED DECISION-MAKING Aged Out No longer eligibl e based on patient's age to complete this topic MENINGOCOCCAL GROUPS A/C/Y/W VACCINE Aged Out No longer eligible b ased on patient's age to complete this topic Care Teams Shrimp Packer Relationship Specialty Start Date End Date Dimitri Benton MD [address] [place] [address] [facility] - General 03/17/09
--- OUTSIDE RECORDS SUMMARY | 2025-02-25 12:40 | XMS_ITS | Encounter Summary ---
Author Organization [employer] [facility] Address [address] [place] [address] Care Team Providers Care Credit Risk Specialist Name Role Phone Julee Lara Primary Care Provider [phone] Encounter Details Date Type Department Care Team (Late st Contact Info) Description 06/04/2007 Emergency [facility] JEROD Vazquez Jr., Portillo Xiao [place] [address] Er, Authorized P NO ADDRESS ON FILE Closed Fracture of Glenoid Cavity and Neck of Scapula (Primary Dx) Social History Tobacco Use Types Packs/Day Years Used Date Smoking Tobacco: Never Assessed Sex and Gender Information Value Date Recorded Sex Assigned at Not on file 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
--- OUTSIDE RECORDS SUMMARY | 2025-02-25 12:40 | XMS_ITS | Encounter Summary ---
Author Organization [facility] Home Care Servic es Address [address] [place] [address] Phone Care Team Providers Care Composition Mixer Name Role Phone Suhas Lockhart MD Unavailable [phone] Holly Arrieta OD Unavailable Neo Sykes MD Unavailable [phone] Morales Palumbo MD Unavailable [phone] Royal Jarrell Howe MD Unavailable [phone] Kenroy Gaviria MD Unavailable [phone] Palak Lees NP Primary Care Provider Paloma Cárdenas LCSW Unavailable Veronica Betancur RN Unavailable [phone] Encounter Details Date Type Department Care Team (Late st Contact Info) Description 10/24/2022 Telephone [facility] [address] [place] [address] Sandy Cochran, RN Social History Tobacco Use Types Packs/Day Years Used Date Smoking Tobacco: Former Cigarettes 1 5 1 985 - 1989 Smokeless Tobacco: Never Alcohol Use Standard Drinks/Week Comments No 0 (1 standard drink = 0.6 oz pur e alcohol) AUDIT-C Answer Date Recorded Q1: How often do you have a drink containing alcohol? Never 07/09/2022 Q2: How many drinks containi ng alcohol do you have on a typical day when you are drinking? Patient does not drink Q3: How often do you have si x or more drinks on one occasion? 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 Gender Identity Not on file Sexual Orientation Not on file documented as of this encounter Plan of Treatment Not on file documented as of this encounter Visit Diagnoses Not on filedocumented in this encounter Additional Health Concerns Infection Onset Date Last Indicated Resolved Time MDR gram neg/ESBL 01/10/2023 01/10/2023 documented as of this encounter Care Teams Composition Mixer Relationship Specialty [place] [address] [address] [facility] [address] [place] [address] PCP - General Nurse Practitioner 11/23/21 Suhas Lockhart MD Consulting Physician Ophthalmology 04/10/19 Holly Arrieta OD [address] [place] [address] Optometry 05/01/19 Neo Sykes MD [address] [place] [address] Consulting Physician Cardiology 05/01/19 Morales Palumbo MD [address] [place] [address] Consulting Physician Urology 06/30/20 [place] [address] [facility] [address] [place] [address] Consulting Physician Pulmonary Disease 03/17/21 [place] [address] [address] [facility] [address] [place] [address] Consulting Physician Endocrinology Diabetes & Metabolism 03/17/21 Paloma Cárdenas, ETCHER HAND [address] [place] [address] [address] [place] [address] Brush Worker 06/02/24 06/03/24 Veronica Betancur, RN [address] [facility] [address] [place] [address] Shuttle Final Inspector 06/03/24 documented as of this encounter
--- OUTSIDE RECORDS SUMMARY | 2025-02-25 12:40 | XMS_ITS | Encounter Summary ---
Author Organization [facility] Address [address] [address] Care Team Providers Care Properties Supervisor Name Role Phone Julee Lara Primary Care Provider [phone] Julee Lara Primary Care Provider [phone] No, Physician Primary Care Provider Suhas Lockhart MD Unavailable Genia Barba MD Unavailable Marci Muro MD Unavailable [phone] Alize Vega PROFESSOR OF VIOLIN Primary Care Provider [phone] Holly Arrieta OD Unavailable [phone] Neo Sykes MD Unavailable Heather Sibley PROFESSOR OF VIOLIN Primary Care Provider Alize Vega PROFESSOR OF VIOLIN Primary Care Provider [phone] Domingo Tinajero MD Unavailable Morales Palumbo MD Unavailable [phone] Layne Junior MA Unavailable [phone] Royal Jarrell Howe MD Unavailable [phone] Kenroy Gaviria MD Unavailable Palak Lees PROFESSOR OF VIOLIN Primary Care Provider Paloma CárdenasW Unavailable [phone] Veronica Betancur RN Unavailable [phone] Encounter Details Date Type Department Care Team (Latest Contact Info) Description 09/12/2016 Orders Only 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 Historical Provider [facility] PEREZ Final Result documented in this encounter Visit Diagnoses Not on filedocumented in this encounter Additional Health Concerns Infection Onset Date Last Indicated Resolved Time COVID: Suspected 11/26/2020 11/26/2020 11/27/2020 1:25 AM CDT COVID: Suspected 10/15/2022 10/15/2022 10/15/2022 4:25 PM CDT MDR gram neg/ESBL 01/10/2023 01/10/2023 documented as of this encounter Care Teams Properties Supervisor Relationship Specialty Start Date End Date Manuel Lara MD [address] [address] PCP - General 09/25/16 10/25/16 Manuel Lara MD [address] [address] PCP - General 11/02/15 09/24/16 No, Physician PCP - General 01/31/18 04/30/19 Alize Vega PROFESSOR OF VIOLIN PCP - General Family Medicine 05/01/19 10/18/19 Heather Sibley, PROFESSOR OF VIOLIN [address] [place] [address] PCP - General Family Medicine 10/19/19 01/18/20 Alize Vega, PROFESSOR OF VIOLIN PCP - General Family Medicine 01/19/20 11/22/21 Palak Lees, ROSSI [address] [address] PCP - General Nurse Practitioner 11/23/21 Suhas Lockhart MD Consulting Physician Ophthalmology 04/10/19 Genia Barba MD Consulting Physician Family Medicine 04/10/19 04/30/19 Marci Muro MD Endocrinology 05/01/19 02/15/20 Holly Arrieta OD [address] [place] [address] Optometry 05/01/19 Neo Sykes MD [address] [place] [address] Consulting Physician Cardiology 05/01/19 [place] [address] [address] [facility] [address] [place] [address] Consulting Physician Endocrinology Diabetes & Metabolism 02/16/20 03/16/21 [place] [address] [facility] [facility] [address] [place] [address] Consulting Physician Urology 06/30/20 Layne Junior MA [address] [place] [address] [address] [place] [address] ACO Care Cap Machine Operator 11/29/20 11/30/20 [place] [address] [facility] [address] [place] [address] Consulting Physician Pulmonary Disease 03/17/21 [place] [address] [facility] [address] [place] [address] Consulting Physician Endocrinology Diabetes & Metabolism 03/17/21 Paloma Cárdenas, DISPLAY MAKER [address] [place] [address] [address] [place] [address] Beam House Inspector 06/02/24 06/03/24 Veronica Betancur, RN [address] [facility] [address] [place] [address] Design Editor 06/03/24 documented as of this encounter
--- OUTSIDE RECORDS SUMMARY | 2025-02-25 12:40 | XMS_ITS | Encounter Summary ---
Author Organization [facility] Address [address] [place] [address] Care Team Providers Care Bag Bailer Name Role Phone Julee Lara Primary Care Provider Encounter Details Date Type Department Care Team (Latest Contact Info) Description 08/26/2008 Outpatient Historical [facility] [address] [place] [phone] Portillo Dhillon MD NO ADDRESS ON FILE Coronary Atherosclerosis of Unspecified Type of Bypass Graft Social History Tobacco Use Types Packs/Day Years Used Date Smoking Tobacco: Former Cigarettes Alcohol Use Standard Drinks/Week Comments No 0 (1 standard drink = 0.6 oz pur e alcohol) Sex and Gender Information Value Date Recorded Sex Assigned at Not on file 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
--- OUTSIDE RECORDS SUMMARY | 2025-02-25 12:40 | XMS_ITS | Encounter Summary ---
Author Organization [facility] Address [address] [place] [address] Care Team Providers Care Security Attendant Name Role Phone Julee Lara Primary Care Provider [phone] Encounter Details Date Type Department Care Team (Latest Contact Info) Description 09/20/2008 Outpatient Historical [facility] Portillo Dhillon MD NO ADDRESS ON FILE Cor Athrscl-Uns Vessel Social History Tobacco Use Types Packs/Day Years Used Date Smoking Tobacco: Former Cigarettes Alcohol Use Standard Drinks/Week Comments No 0 (1 standard drink = 0.6 oz pur e alcohol) Sex and Gender Information Value Date Recorded Sex Assigned at Not on file Legal Sex Male 2:41 AM FLOOR CASHIER Gender Identity Not on file Sexual Orientation Not on file documented as of this encounter Plan of Treatment Not on file documented as of this encounter Procedures Procedure Name Priority Date/Time Associated Diagnosis Comments CBC WITH DIFFERENTIAL Stat 09/21/2008 9:37 AM FLOOR CASHIER PROTIME-INR Stat 09/21/2008 9:37 AM FLOOR CASHIER BASIC METABOLIC PANEL Stat 09/21/2008 9:37 AM FLOOR CASHIER documented in this encounter Results * CBC WITH DIFFERENTIAL (09/21/2008 9:37 AM FLOOR CASHIER) MONOCYTES 7 3 - 13 % [facility] MONOCYTE ABSOLUTE 0.42 0.10 - 1.30 K/uL [facility] NEUTROPHILS 51 45 - 70 % [facility] NEUTROPHIL ABSOLUTE 3.26 1.90 - 7.00 K/uL [facility] EOSINOPHILS 5 0 - 7 % [facility] EOSINOPHIL ABSOLUTE 0.29 0.00 - 0.70 K/uL [facility] LYMPHOCYTES 38 16 - 45 % [facility] LYMPHOCYTE ABSOLUTE 2.46 0.70 - 4.50 K/uL [facility] BASOPHILS 0 0 - 2 % [facility] BASOPHILS ABSOLUTE 0.02 0.00 - 0.20 K/uL [facility] Blood specimen (specimen) 09/21/2008 9:37 AM FLOOR CASHIER 09/21/2008 9:41 AM FLOOR CASHIER us Portillo Dhillon MD HEMATOLOGY ORDERABLES Edited INTERFACE SYSTEM Refer to clinic/hospital department [facility] CLIA# [id number] [address] [place] [address] * PROTIME-INR (09/21/2008 9:37 AM FLOOR CASHIER) PROTIME 13.6 12.7 - 15.1 Seconds [facility] INR 1.0 0.9 - 1.1 [facility] Comment: INR Therapeutic Range: Adult: 2.0 - 3.0 for pulmonary embolism or prophylaxis against venous thrombosis or systemic embolization. 2.0 - 3.0 for patients with tissue heart valves. 2.5 - 3.5 for patients with mechanical heart valves or post SC. Pediatric (12 years and under): 1.5 - 3.0 Although the target range in children is not well established, INR values of 1.5 - 3.0 are recommended for most patients. Higher values have been used in children with prosthetic cardiac valves and hereditary clotting disorders. (<3 days) therapeutic ranges have not been established. Blood specimen (specimen) 09/21/2008 9:37 AM FLOOR CASHIER 09/21/2008 9:41 AM FLOOR CASHIER us Portillo Dhillon MD HEMATOLOGY ORDERABLES Final Resu lt Performing Organization Address City/[facility] de Phone Number INTERFACE SYSTEM Refer to clinic/hospital department [facility] CLIA# [id number] [address] [place] [address] * (ABNORMAL) BASIC METABOLIC PANEL (09/21/2008 9:37 AM FLOOR CASHIER) GFR, >60 >=60 mL/min/1. 7 sq meter [facility] GLUCOSE 194(H) 65 - 99 mg/dL [facility] SODIUM 139 135 - 145 mmol/L [facility] GFR >60 >=60 mL/min/1. 7 sq meter [facility] Comment: Modification of Diet in Renal Disease (MDRD) study formula. Estimated GFR rate interpretative information for both Americans and non- Americans is available on the [facility] Intranet at: [email or web address] Select: Lab Policies and Procedures Select: Reference Ranges - GFR CALCIUM 9.9 8.6 - 10.2 mg/dL [facility] CO2 26 22 - 30 mmol/L [facility] CREATININE 1.12 0.67 - 1.17 mg/dL [facility] POTASSIUM 4.6 3.5 - 4.9 mmol/L [facility] BUN 21(H) 6 - 20 mg/dL [facility] CHLORIDE 105 96 - 108 mmol/L [facility] Blood specimen (specimen) 09/21/2008 9:37 AM FLOOR CASHIER 09/21/2008 9:41 AM FLOOR CASHIER Portillo Dhillon MD CHEMISTRY ORDERABLES Edited Performing Organization Address [facility]/ZIP Co de Phone Number INTERFACE SYSTEM Refer to clinic/hospital department [facility] CLIA# [id number] [address] [place] [address] documented in this encounter Visit Diagnoses Diagnosis Coronary atherosclerosis of unspecified type of vessel, morongo or graft documented in this encounter Care Teams Security Attendant Relationship Specialty Start Date End Date Manuel Lara MD PCP - General 08/26/08 documented as of this encounter
--- OUTSIDE RECORDS SUMMARY | 2025-02-25 12:40 | XMS_ITS | Clinical Summary ---
Author Organization [facility] Address [address] [place] [address] Care Team Providers Care Vice President Consulting Services Name Role Phone Suhas Lockhart MD Unavailable [phone] Holly Arrieta OD Unavailable Neo Sykes MD Unavailable [phone] Morales Palumbo MD Unavailable [phone] Royal Jarrell Howe MD Unavailable [phone] Kenroy Gaviria MD Unavailable [phone] Palak Lees NP Primary Care Provider Veronica Betancur RN Unavailable Allergies Active Allergy Reactions Criticality Noted Date [...] as needed for heartburn 90 tablet 04/08/20 Active tamsulosin (FLOMAX) 0.4 mg extended release [...] capsule 3 06/14/20 23 Active blood-glucose transmitter ([employer] G6 Transmitter) deviceIndications: Type 2 diabetes mellitus with hyperlipidemia ([facility]),Controlled type 2 diabetes mellitus with hyperglycemia, with long-term current use of insulin ([facility]) Use to continuously monitor blood glucose 1 each 07/09/20 23 Active fluticasone propionate (FLONASE) 50 mcg/actuation nasal sprayIndications:C hronic bronchitis, unspecified chronic bronchitis type ([facility]) Administer 2 sprays into each nostril daily as needed for rhinitis 1 each 07/09/20 23 Active lancets miscIndications:Ty pe 2 diabetes mellitus with hyperlipidemia ([facility]),Uncontrolled type 2 diabetes mellitus with hyperglycemia ([facility]) Test blood sugar three times daily 300 each 3 09/05/[address] (PROTONIX) 40 mg EC tabletIndications: Gastroesophageal reflux disease without esophagitis Take 1 tablet (40 mg total) by mouth cyber operator before breakfast 90 tablet 3 05/21/20 24 [...] mellitus with hyperglycemia (HCC),Coronary artery disease of [place] artery of [place] heart with stable angina pectoris,Mixed hyperlipidemia Take [...] hyperglycemia, with long-term current use of insulin ([facility]) Use to continuously monitor blood sugar 1 each 11 06/29/20 24 Active budesonide-formote roL (SYMBICORT) 160-4.5 [...] CE/ PCIOL /iris hooks OD (07/09/22) 07/10/20 Assessment & Plan (09/27/2022 11:34 AM SELF SEALING FUEL TANK BUILDER): 3 month post op VA ph 20/40 OD with Mrx Ana drops did not help blurred vision OD Tr PCF OD, monitor for now Raffi OD (08/09/22): 0.93D of cyl - no SR Mac OCT (08/09/22): WNL / no cme PLAN MRx given today OU RTC 3 months w/ repeat MRx and confocal Assessment & Plan (08/30/2022 12:07 PM SELF SEALING FUEL TANK BUILDER): 2 month post op VA ph 20/40 Faint D folds paracentrally - trial Ana gtts OD 3-4x/day in AM hrs Tr PCF Raffi OD at last visit: 0.93D of cyl - no SR Mac OCT at last visit: WNL / no cme PLAN PF QD OD for 2 weeks then stop RTC 1 mo with repeat MRx Assessment & Plan (08/09/2022 11:44 AM SELF SEALING FUEL TANK BUILDER): 1 month post op VA 20/30 Tr cor edema temporally - clear centrally Tr PCF no cell or flare OD but still reports blurred vision OD IOP 12 Raffi OD today: 0.93D of cyl - no SR Mac OCT today: WNL / no cme PLAN PF BID until out Recheck MRx next visit RTC 1 mo Assessment & Plan (07/13/2022 9:17 AM SELF SEALING FUEL TANK BUILDER): Improved VA (ph 20/40) Excellent IOP Decreased sup edema (1+) / C/F On Saturday change from TD to PF OD QID RTC 1 mo Assessment & Plan (07/10/2022 8:16 AM SELF SEALING FUEL TANK BUILDER): 1 day post op CE/PCIOL/iris hooks OD [...] 09/30/2020 Assessment & Plan (07/10/2022 7:43 AM SELF SEALING FUEL TANK BUILDER): Hx PC rupture w/ AVIT / retained [...] afternoon.) Assessment & Plan (10/07/2020 8:27 AM SELF SEALING FUEL TANK BUILDER): Here for IOP check off diamox. IOP [...] reviewed. Assessment & Plan (10/05/2020 8:39 AM SELF SEALING FUEL TANK BUILDER): One day status post PPV/PPLx/AFx to the left eye. Doing well. Restart polytrim and prednisolone 4x/day, lumigan and prolensa 1x/day. Shield operated eye. Can stop neptazane. Post Op Position:None. Altitude precautions were reviewed with patient. No strenuous activity. Return to clinic in Saturday for IOP check. Assessment & Plan (10/02/2020 1:21 PM SELF SEALING FUEL TANK BUILDER): IOP okay, vision/cornea improving Continue to monitor with plan for surgery Saturday All questions regarding surgery answered Assessment & Plan (09/30/2020 12:28 PM SELF SEALING FUEL TANK BUILDER): Intra-ocular pressure is good at 15 today, [...] and wish to proceed. 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 CXR ordered today. [...] 05/01/2019 Assessment & Plan (07/25/2023 12:10 PM SELF SEALING FUEL TANK BUILDER): Briefly discussed options for treatment (therapy vs medication vs both) Assessment & Plan (05/01/2019 9:20 PM CDT): Discussed that Xanax t.i.d. Is not appropriate treatment for underlying anxiety. If he is needing treatment for anxiety we can discuss other long-term options. He is taking Xanax very infrequent, will discontinue at this time. Coronary artery disease of n ative artery of [place] heart with stable angina pectoris 01/31/2018 Assessment & Plan (07/25/2023 12:09 PM SELF SEALING FUEL TANK BUILDER): Atorvastatin 80 mg and metoprolol 50 mg Assessment & Plan (08/15/2022 4:52 PM SELF SEALING FUEL TANK BUILDER): Possibly stable. Whether his episodic dyspnea represents [...] CDT): Patient will schedule follow-up with his senior client advisor. Continue atorvastatin 40 mg daily, aspirin 81 [...] of regular follow-up with his specialists and welding machine operator thermit. Assessment & Plan (05/29/2019 10:26 AM CDT): Doing well. Continue current therapy. Assessment & Plan (05/01/2019 9:18 PM CDT): Recommended follow-up with Cardiology annually. Continue statin, antihypertensives, strict diabetes control and aspirin. Spent a significant amount of time discussing importance of compliance of medical therapy and importance of regular follow-up with his specialists and welding machine operator thermit. Assessment & Plan (01/31/2018 2:20 PM CDT): Appears to be well controlled on his current regimen. Discontinue Plavix as it no longer appears to be necessary Type 2 diabetes mellitus with hyperlipidemia (CM S/HCC) 09/12/2016 Overview (10/31/2016): Hyperlipidemia Assessment & Plan (07/25/2023 12:08 PM SELF SEALING FUEL TANK BUILDER): Ordered Dexcom continuous glucometer and supplies Lantus 40-50 units qam Glyburide 5 mg Gabapentin 100 mg TID Lab Results Component Value Date HGBA1C 8.5 04/08/2023 Assessment & Plan (08/15/2022 4:53 PM SELF SEALING FUEL TANK BUILDER): Recent lipid panel reveals a total cholesterol [...] as ordered. and Will request records from welding machine operator thermit. See note below Lipids will be reassessed [...] 2 Assessment & Plan (07/09/2024 1:17 PM SELF SEALING FUEL TANK BUILDER): Today's A1c 9.6 Reasonable goal less than 7.5 Medication compliance seems to be an issue, I do also note some mild memory impairment today CGM with continuous use Freestyle Tammy Continue insulin glargine 40-50 units daily [...] as ordered. He would like a new welding machine operator thermit. Recommend Dr. Gaviria. I discussed with him that with his severely uncontrolled diabetes and complications of diabetes and insulin regimen he needs to see endocrinology. Recommend dilated eye exam. Discussed importance of foot care. Discussed complications of uncontrolled diabetes including risk for diabetic retinopathy, neuropathy, risk for heart attack and stroke, nephropathy. Assessment & Plan (06/30/2020 1:02 PM SELF SEALING FUEL TANK BUILDER): Hba1c was Lab Results Component Value Date [...] retinal exam. Patient referred to endocrinology at [facility]. He has not followed up with his previous welding machine operator thermit in months. Discussed importance of taking insulin [...] hypertension Assessment & Plan (07/25/2023 12:05 PM SELF SEALING FUEL TANK BUILDER): Today's BP is 146/79 goal is < 140/90 amlodipine 5 mg, metoprolol 50 mg, and valsartan 160 mg Assessment & Plan (07/26/2022 7:54 AM SELF SEALING FUEL TANK BUILDER): -goal is < 140/90 -amlodipine 5 mg, [...] appointment. Assessment & Plan (06/30/2020 1:03 PM SELF SEALING FUEL TANK BUILDER): Goal blood pressure is less than 140/85 [...] 1 Assessment & Plan (07/25/2023 12:09 PM SELF SEALING FUEL TANK BUILDER): Pantoprazole 40 mg Assessment & Plan (05/01/2019 [...] infarction Urinary tract infection without hematuria 01/12/2023 Encounters Date Type Department Care Team Description 01/14/2025 Telephone [facility] [place] [id number] [address] Palak Lees NP Medical Question/Miscellaneous from Last 3 Months Immunizations Immunization Administration Dates Next Due Influenza, Quadrivalent, Hig h Dose, Preservative Free, Intrr 05/02/2020 Influenza, Trivalent, High D ose, Split, Preservative Free, Intramuscular 05/03/2019,04/02/2018 Influenza, Unspecified 03/12/2023(Deferr ed: Patient Refused),09/21/2022(Deferred: Patient Refused),06/28/2022(Deferred: Patient Refused),05/02/2022,06/28/2021(Deferre d: Patient Refused),05/05/2021(Deferred: Patient Refused) Moderna SARS-CoV-2 Monovalen t Vaccination (12+ YRS) 09/27/2020,09/01/2020 Pneumococcal Conjugate PCV 13 05/03/2019 Pneumococcal, Unspecified 07/29/2016,07/29/2016 Tetanus Toxoid, Unspecified 07/29/2015, 6 Surgical History Surgery Date Site/Laterality Comments EPIDURAL INJECTION LUMBOSACRAL 08/11/2012 N/A EPIDURAL INJECTION LUMBOSACRAL 08/01/2012 N/A RECTAL SURGERY 1979' hemorrhoidectomy CERVICAL FUSION 07/29/2012 - 07/28/2013 x2 titanium plate and 6 screws LUMBAR LAMINECTOMY 1979's APPENDECTOMY 1959's TRANSURETHRAL RESECTION OF PROSTATE 08/29/2020 NASAL SEPTUM SURGERY 1989's CATARACT EXTRACTION 09/28/2020 Left CATARACT EXTRACTION 09/14/2020 Right ESOPHAGOGASTRODUODENOSCOPY 11/03/2010 VITRECTOMY 10/04/2020 Left PPV/Lensectomy for retained lens material (Dr. Randhawa) COLONOSCOPY UPPER GASTROINTESTINAL ENDOSCOPY MoBap CARDIAC STENT PLACEMENT x2 per pt Medical History Medical History Date Comments Diabetes mellitus (HCC) Hyperlipidemia COPD (chronic obstructive pu lmonary disease) (HCC) Asthma Ulcerative colitis (HCC) HTN (hypertension) Sleep apnea Gout Arthritis BPH with urinary obstruction CAD (coronary artery disease) s/ p stenting of circumflex Myocardial infarction (HCC) 11/02/2015 Family History Medical History Relation Name Comments Immunodeficiency Daughter Coronary artery disease Father Heart attack Father Myocardial infa rction; Cause of : Myocardial infarction Coronary artery disease Mother Coronary artery disease Sister Anesthesia problems Neg Hx Cancer Neg Hx Relation Name Status Comments Daughter Alive Father Mother Sister Alive Social History Tobacco Use Types Packs/Day Years Used Date Smoking Tobacco: Former Cigarettes 1 5 1 985 - 1989 Smokeless Tobacco: Never Tobacco Cessation:Counseling Given: No [...] on file Legal Sex Male 4:08 PM SELF SEALING FUEL TANK BUILDER Gender Identity Not on file Sexual Orientation Not on file Obstetrics History Last Filed Vital Signs Vital Sign Reading Time Taken Comments Blood Pressure 145/69 06/01/2024 1:20 PM SELF SEALING FUEL TANK BUILDER Pulse 82 06/01/2024 12:43 PM SELF SEALING FUEL TANK BUILDER Temperature 36.2 C (97.1 F) 04/08/2023 8:12 AM CDT Respiratory Rate 20 06/01/2024 12:43 PM SELF SEALING FUEL TANK BUILDER Oxygen Saturation 96% 04/08/2023 8:12 AM CDT Inhaled Oxygen Concentration - - Weight 77.1 kg (170 lb) 06/01/2024 12:43 PM SELF SEALING FUEL TANK BUILDER Height 182.9 cm (6' 0.01) 06/01/2024 12:[address] Body Mass Index 23.05 06/01/2024 12:43 PM SELF SEALING FUEL TANK BUILDER Plan of Treatment Health Maintenance Due Date Last Done Comments DTaP/Tdap/Td Vaccine (1 - Tdap) 1954 Hepatitis B Screening 1961 Zoster Vaccine (1 of 2) 1993 Pneumococcal vaccine 65+ (2 of 2 - PPSV23) 06/28/2019 05/03/2019, 07/29/2016, 07/29/2016 Covid-19 Vaccine (3 - 2023-2 5 season) 2024 09/27/2020, 09/01/2020 Albumin Creatinine Ratio, Urine 07/09/2024 07/09/2023, 07/18/2022, 05/01/2019 Fall Risk Assessment 07/09/2024 07/09/2023, 01/12/2023, 11/23/2021, Additional history exists Lipid Panel 07/09/2024 07/09/2023, 06/29, 05/09/2020, Additional history exists Well Visit 65+ 07/09/2024 07/09/2023 eGFR 07/09/2024 07/09/2023, 12/27, 01/10/2023, Additional history exists Hemoglobin A1C 11/29/2024 06/01/2024, 03/29, 10/17/2022, Additional history exists Dilated Eye Exam 01/09/2025 01/10/2024, , 05/01/2021, Additional history exists Influenza Vaccine (#1) 2025 , 05/02/2020, 05/03/2019, Additional history exists Depression Screening 06/01/2025 06/01/2024, 06/01/2024, 07/09/2023, Additional history exists Foot Exam 06/01/2025 06/01/2024, 01/27, 05/01/2019 Medical Devices Implanted Type Area Sports Teacher Device Identifier Shelf Expiration Date Model / Serial / Lot [employer] [id number] 21.0 Tecnis Optiedge 6mm 13mm 3 Piece Anterior Aspheric Monofocal Uv - [id number] - [id number] Implanted:Qty: 1 on 09/28/2020 by Chip Martínez MD at [facility] Lens Left: Eye [employer] [id number] 06/02/2024 [id number] 0 / [id number] / [employer] Acrysof Iq Natural Stableforce Acrysert 6mm 13mm 1 Piece Foldable [id number].210 - [id number] - [id number] Implanted:Qty: 1 on 07/09/2022 by Chin Steele MD at [facility] Lens Right: Lens [employer] [id number] 01/10/2027 [id number].21 0 / [id number] / Procedures Procedure Name Priority Date/Time Associated Diagnosis Comments POCT HEMOGLOBIN A1C Routine 06/01/2024 1 :44 PM SELF SEALING FUEL TANK BUILDER Uncontrolled type 2 diabetes mellitus with hyperglycemia (HCC) DIABETIC EYE EXAM Routine 01/10/2024 EGFR Routine 07/09/2023 2:09 PM SELF SEALING FUEL TANK BUILDER Annual physical exam Type 2 diabetes mellitus with hyperlipidemia (HCC) Hypertension complicating diabetes (HCC) Coronary artery disease of [place] artery of [place] heart with stable angina pectoris LIPID PANEL Routine 07/09/2023 2:09 PM SELF SEALING FUEL TANK BUILDER Annual physical exam ALBUMIN CREATININE RATIO, URINE Routine 07/09/2023 2:09 PM SELF SEALING FUEL TANK BUILDER Microalbuminuria from Last 3 Months or Most Recently Relevant to Health Maintenance Results * POCT hemoglobin A1c (06/01/2024 1:44 PM SELF SEALING FUEL TANK BUILDER) Hemoglobin A1C, POC 9.6 4.0 - 5.6 % Blood 06/01/2024 1:44 PM SELF SEALING FUEL TANK BUILDER Missy Dangelo NP POINT OF CARE TEST ORDERABL ES Final Result * (ABNORMAL) Diabetic Eye Exam (01/10/2024) Historical Provider HEALTH MAINTENANCE Final Result * eGFR (07/09/2023 2:09 PM SELF SEALING FUEL TANK BUILDER) eGFR 41 mL/min/1. 73 m2 NAYA CROWLEY [...] last reviewed 2021. Blood 07/09/2023 2:09 PM SELF SEALING FUEL TANK BUILDER 07/09/2023 8:52 PM SELF SEALING FUEL TANK BUILDER Palak Lees NP LAB BLOOD ORDERABLES Final Resul t NAYA CROWLEY [address] Department [place] [address] * (ABNORMAL) Albumin Creatinine Ratio, Urine (07/09/2023 2:09 PM SELF SEALING FUEL TANK BUILDER) Albumin Ur 167.3 mg/L NAYA CROWLEY Comment: Interpretive Data No reference range established. Current interpretive data was last revised 2018. Creatinine Ur 73.1 mg/dL NAYA CROWLEY Comment: Interpretive Data No reference range established. Current interpretive data was last revised 2018. Albumin Creatinine Ratio, Ur 229(H) 1 - 29 mg/g [facility] Urine 07/09/2023 2:09 PM SELF SEALING FUEL TANK BUILDER 07/09/2023 8:37 PM SELF SEALING FUEL TANK BUILDER us Palak Lees NP LAB URINE ORDERABLES Final Resul t [facility] [address] Department [place] [address] * (ABNORMAL) Lipid panel (07/09/2023 2:09 PM SELF SEALING FUEL TANK BUILDER) Cholesterol 174 30 - 199 mg/dL NAYA [...] on 2018. Triglycerides 552(H) <=149 mg/dL NAYA Comment: Interpretive Data Ages < [...] on 2018. HDL 28(L) >=40 mg/dL NAYA Comment: Interpretive Data Ages < [...] 6 [facility]AYA CROWLEY Blood 07/09/2023 2:09 PM SELF SEALING FUEL TANK BUILDER 07/09/2023 8:36 PM SELF SEALING FUEL TANK BUILDER us Palak Lees NP LAB BLOOD ORDERABLES Final Resul t [facility]A [facility] [address] Department [place] [address] from Last 3 Months or Most Recently Relevant to Health Maintenance Additional Health Concerns Infection Onset Date Last Indicated MDR gram neg/ESBL 01/10/2023 01/10/2023 Insurance MEDICARE [employer] OOS MEDICARE [employer] OOS MEDICARE MEDICARE [employer] OS Advance Directives For more information, please contact: [phone] * Full Code (Latest Code Status on [...] 4:32 PM 08/29/2020 4:32 PM Care Teams Vice President Consulting Services Relationship Specialty [place] [address] [address] [facility] [email or web address] [address] [place] [address] PCP - General Nurse Practitioner 11/23/21 Suhas Lockhart MD Consulting Physician Ophthalmology 04/10/19 Holly Arrieta OD [address] [place] [address] Optometry 05/01/19 Neo Sykes MD [address] [place] [address] Consulting Physician Cardiology 05/01/19 Morales Palumbo MD [address] [place] [address] Consulting Physician Urology 06/30/20 [place] [address] [facility] [address] [place] [address] Consulting Physician Pulmonary Disease 03/17/21 [place] [address] [address] [place] [address] Consulting Physician Endocrinology Diabetes & Metabolism 03/17/21 Veronica Betancur RN [address] [place], [place] [id number] Machine Rough Rounder 06/03/24
--- OUTSIDE RECORDS SUMMARY | 2025-02-25 14:49 | XMS_ITS | Encounter Summary ---
Author Organization [facility] Address [address] [place] [address] Care Team Providers Care Tester Vibrator Equipment Name Role Phone Julee Lara Primary Care Provider [phone] Encounter Details Date Type Department Care Team (Latest Contact Info) Description 08/26/2008 Outpatient Historical [facility] - [facility] [address] [place] [id number] Portillo Dhillon MD NO ADDRESS ON FILE Coronary Atherosclerosis of Unspecified Type of Bypass Graft Social History Tobacco Use Types Packs/Day Years Used Date Smoking Tobacco: Former Cigarettes Alcohol Use Standard Drinks/Week Comments No 0 (1 standard drink = 0.6 oz pur e alcohol) Sex and Gender Information Value Date Recorded Sex Assigned at Not on file Legal Sex Male 2:41 AM PLANNING DIRECTOR Gender Identity Not on file Sexual Orientation Not on file documented as of this encounter Plan of Treatment Not on file documented as of this encounter Visit Diagnoses Diagnosis Coronary atherosclerosis of unspecified type of bypass graft(414.05) Coronary atherosclerosis of unspecified type of bypass graft documented in this encounter Care Teams Tester Vibrator Equipment Relationship Specialty Start Date End Date Manuel Lara MD PCP - General 08/26/08 documented as of this encounter
--- OUTSIDE RECORDS SUMMARY | 2025-02-25 14:49 | XMS_ITS | Encounter Summary ---
Author Organization [facility] Address [address] [place] [address] Phone Care Team Providers Care Timers Inspector Name Role Phone Suhas Lockhart MD Unavailable [phone] Holly Arrieta OD Unavailable Neo Sykes MD Unavailable Morales Palumbo MD Unavailable [phone] Royal Jarrell Howe MD Unavailable [phone] Kenroy Gaviria MD Unavailable [phone] Palak Lees NP Primary Care Provider Paloma Cárdenas LCSW Unavailable Veronica Betancur RN Unavailable [phone] Encounter Details Date Type Department Care Team (Late st Contact Info) Description 10/24/2022 Telephone [facility] [address] [place] [address] Sandy Cochran, RN Social History [...] on file 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 Gender Identity Not on file Sexual Orientation Not on file documented as of this encounter Plan of Treatment Not on file documented as of this encounter Visit Diagnoses Not on filedocumented in this encounter Additional Health Concerns Infection Onset Date Last Indicated Resolved Time MDR gram neg/ESBL 01/10/2023 01/10/2023 documented as of this encounter Care Teams Timers Inspector Relationship Specialty [place] [address] [address] [facility] [address] [place] [address] PCP - General Nurse Practitioner 11/23/21 Suhas Lockhart MD Consulting Physician Ophthalmology 04/10/19 Holly Arrieta OD [address] [place] [address] Optometry 05/01/19 Neo Sykes MD [address] [place] [address] Consulting Physician Cardiology 05/01/19 Morales Palumbo MD [address] [place] [address] Consulting Physician Urology 06/30/20 [place] [address] [facility] [address] [place] [address] Consulting Physician Pulmonary Disease 03/17/21 [place] [address] [address] [facility] [address] [place] [address] Consulting Physician Endocrinology Diabetes & Metabolism 03/17/21 Paloma Cárdenas, ACETONE RECOVERY WORKER [address] [place] [address] [address] [place] [address] Medical Record Clerk 06/02/24 06/03/24 Veronica Betancur, RN [address] [facility] [address] [place] [address] Tornado Chaser 06/03/24 documented as of this encounter
--- OUTSIDE RECORDS SUMMARY | 2025-02-25 14:49 | XMS_ITS | Encounter Summary ---
Author Organization [employer] [facility] Address [address] [place] [address] Care Team Providers Care Slitter And Rewinder Machine Operator Name Role Phone Julee Lara Primary Care Provider [phone] Encounter Details Date Type Department Care Team (Late st Contact Info) Description 01/14/2008 Outpatient Historical [facility] Er, Authorized P NO ADDRESS ON FILE Jean Anderson MD [address] [address] Ginger Alex MD [address] [address] Other Chest Pain Social History Tobacco Use Types Packs/Day Years Used Date Smoking Tobacco: Never Assessed Sex and Gender Information Value Date Recorded Sex Assigned at Not on file 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 Gender Identity Not on file Sexual Orientation [...] PM CDT) TROPONIN T <0.01 <=0.03 ng/mL [facility] TROPONIN T INTERP Negative [facility] Blood specimen (specimen) 01/14/2008 2:13 PM CDT 01/14/2008 2:19 PM CDT Jean Anderson MD CHEMISTRY ORDERABLES Edited Performing Organization Address City/[facility]/ZIP Co de Phone Number [facility] CLIA# [id number] [address] [place] [address] * (ABNORMAL) POC GLUCOSE (01/14/2008 12:43 PM CDT) GLUCOSE POC 226(H) 65 - 99 mg/dL [facility] Venous blood specimen (specimen) 01/14/2008 12:43 PM CDT 01/14/2008 12:43 PM CDT Ginger Alex MD POINT OF CARE TESTING Final R esult [facility] CLIA# [id number] [address] [place] [address] * (ABNORMAL) POC GLUCOSE (01/14/2008 7:36 AM CDT) GLUCOSE POC 211(H) 65 - 99 mg/dL [facility] Venous blood specimen (specimen) 01/14/2008 7:36 AM CDT 01/14/2008 7:36 AM CDT us Jean Anderson MD POINT OF CARE TESTING Final Resu lt [facility] CLIA# [id number] [address], [place] [address] * CBC WITH DIFFERENTIAL (01/14/2008 4:05 AM CDT) HEMOGLOBIN 14.9 13.6 - 16.5 g/dL [facility] RDW 13.2 11.5 - 14.5 % [facility] WBC 7.5 4.0 - 9.8 K/uL [facility] MCH 30.6 27.2 - 32.6 pg [facility] MPV 10.2 9.3 - 12.4 fL [facility] HEMATOCRIT 43.0 40.0 - 48.0 % [facility] RDW-STDEV 42.0 37.1 - 48.7 fL [facility] RBC 4.87 4.50 - 5.40 M/uL [facility] MCHC 34.7 31.5 - 35.5 % [facility] MCV 88.3 82.0 - 99.0 fL [facility] PLATELETS 221 140 - 350 K/uL [facility] EOSINOPHIL ABSOLUTE 0.40 0.00 - 0.70 K/uL [facility] LYMPHOCYTES 29 16 - 45 % [facility] LYMPHOCYTE ABSOLUTE 2.19 0.70 - 4.50 K/uL [facility] BASOPHILS 0 0 - 2 % [facility] BASOPHILS ABSOLUTE 0.02 0.00 - 0.20 K/uL [facility] MONOCYTES 10 3 - 13 % [facility] MONOCYTE ABSOLUTE 0.71 0.10 - 1.30 K/uL [facility] NEUTROPHILS 55 45 - 70 % [facility] NEUTROPHIL ABSOLUTE 4.14 1.90 - 7.00 K/uL [facility] EOSINOPHILS 5 0 - 7 % [facility] Blood specimen (specimen) 01/14/2008 4:05 AM CDT 01/14/2008 4:06 AM CDT Don Campos MD HEMATOLOGY ORDERABLES Edited Performing Organization Address [facility] de Phone Number INTERFACE SYSTEM Refer to clinic/hospital department [facility] CLIA# [id number] [address] [place] [place] [address] * TROPONIN (W/REFLEX CKMB/CK) (01/14/2008 4:05 AM CDT) TROPONIN T <0.01 <=0.03 ng/mL [facility] TROPONIN T INTERP Negative [facility] Blood specimen (specimen) 01/14/2008 4:05 AM CDT 01/14/2008 4:06 AM CDT Don Campos MD CHEMISTRY ORDERABLES Edited Performing Organization Address [facility] Co de Phone Number [facility] CLIA# [id number] [address] [place] [address] * (ABNORMAL) COMPREHENSIVE METABOLIC PANEL (01/14/2008 4:05 AM CDT) CREATININE 1.24(H) 0.67 - 1.17 mg/dL [facility] SODIUM 140 135 - 145 mmol/L [facility] ALT 24 0 - 41 U/L [facility] ALKALINE PHOSPHATASE 136(H) 40 - 129 U/L [facility] BILIRUBIN TOTAL 0.2 0.2 - 1.0 mg/dL [facility] CO2 25 22 - 30 mmol/L [facility] TOTAL PROTEIN 7.1 6.3 - 8.6 g/dL [facility] POTASSIUM 4.0 3.5 - 4.9 mmol/L [facility] GLUCOSE 196(H) 65 - 99 mg/dL [facility] AST 18 12 - 38 U/L [facility] BUN 24(H) 6 - 20 mg/dL [facility] CALCIUM 9.3 8.4 - 10.2 mg/dL [facility] CHLORIDE 105 96 - 108 mmol/L [facility] ALBUMIN 4.2 3.4 - 4.8 g/dL [facility] GFR, >60 >=60 mL/min/1. 7 sq meter [facility] GFR 59(L) >=60 mL/min/1. 7 sq meter [facility] Comment: Modification of Diet in Renal Disease (MDRD) study formula. Estimated GFR rate interpretative information for both Americans and non- Americans is available on the [facility] Intranet at: [email or web address] Select: Lab Policies and Procedures Select: Reference Ranges - GFR Blood specimen (specimen) 01/14/2008 4:05 AM CDT 01/14/2008 4:06 AM CDT us Don Campos MD CHEMISTRY ORDERABLES Edited [facility] CLIA# [id number] [address] [place] [address] * XR CHEST PA OR AP (01/14/2008 4:04 AM CDT) Anatomical Region Laterality Modality Chest Other 01/14/2008 4:04 AM CDT Narrative 01/14/2008 9:54 AM CDT [place] [address] [place], [place] [address] Admit Date: 01/14/2008 YARELY LENZ Sex: Martha Admit Prov: JEAN ANDERSON Date: 1945 Primary Care Prov: PCP , NONE CMRN: [id number] Room: [address] [place] [address] SSN: [id number] IMAGING SERVICES Ordering Prov: N/A Accession Number: [id number] Interpretation PORTABLE CHEST, 01/14/2008, 4:05 AM Clinical History: Epigastric abdominal pain. Findings: The heart, mediastinum and hilar shadows appear normal. The lungs are clear and well expanded. The pleural space is clear. Impression: Negative portable chest. . Dictated by: LEONOR ARMSTRONG 01/14/2008 09:23 Electronically signed by: LEONOR ARMSTRONG 01/14/2008 09:53 Transcribed: 01/14/2008 09:47 DKT Procedure Note Provider, Historical - 01/14/2008 [id number] [place], [place] [address] Admit Date: 01/14/2008 YARELY LENZ Sex: Martha Admit Prov: JEAN ANDERSON Date: 1945 Primary Care Prov: PCP , NONE CMRN: [id number] Room: [address] [place] [address] SSN: [id number] IMAGING SERVICES Ordering Prov: N/A Interpretation PORTABLE [...] pain documented in this encounter Care Teams Slitter And Rewinder Machine Operator Relationship Specialty Start Date End Date Manuel Lara MD PCP - General 08/26/08 documented as of this encounter
--- OUTSIDE RECORDS SUMMARY | 2025-02-25 14:49 | XMS_ITS | Clinical Summary ---
Author Organization [facility] Address [address] [place] [address] Care Team Providers Care Hospital Receptionist Name Role Phone Suhas Lockhart MD Unavailable [phone] Holly Arrieta OD Unavailable [phone] Neo Sykes MD Unavailable Morales Palumbo MD Unavailable [phone] Royal Jarrell Howe MD Unavailable [phone] Kenroy Gaviria MD Unavailable [phone] Palak Lees NP Primary Care Provider [...] capsule 3 06/14/20 23 Active blood-glucose transmitter ([employer] G6 Transmitter) deviceIndications: Type 2 diabetes mellitus with hyperlipidemia ([facility]),Controlled type 2 diabetes mellitus with hyperglycemia, with long-term current use of insulin ([facility]) Use to continuously monitor blood glucose 1 each 07/09/20 23 Active fluticasone propionate (FLONASE) 50 mcg/actuation nasal sprayIndications:C hronic bronchitis, unspecified chronic bronchitis type ([facility]) Administer 2 sprays into each nostril daily as needed for rhinitis 1 each 07/09/20 23 Active lancets miscIndications:Ty pe 2 diabetes mellitus with hyperlipidemia ([facility]),Uncontrolled type 2 diabetes mellitus with hyperglycemia ([facility]) Test blood sugar three times daily 300 each 3 09/05/[address] (PROTONIX) 40 mg EC tabletIndications: Gastroesophageal reflux disease without esophagitis Take 1 tablet (40 mg total) by mouth phlebotomist lab assistant before breakfast 90 tablet 3 05/21/20 24 [...] mellitus with hyperglycemia (HCC),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,Mixed hyperlipidemia Take [...] hyperglycemia, with long-term current use of insulin ([facility]) Use to continuously monitor blood sugar 1 [...] 07/10/20 Assessment & Plan (09/27/2022 11:34 AM MUD MILL TENDER): 3 month post op VA ph 20/40 OD with Mrx Ana drops did not help blurred vision OD Tr PCF OD, monitor for now Raffi OD (08/09/22): 0.93D of cyl - no SR Mac OCT (08/09/22): WNL / no cme PLAN MRx given today OU RTC 3 months w/ repeat MRx and confocal Assessment & Plan (08/30/2022 12:07 PM MUD MILL TENDER): 2 month post op VA ph 20/40 Faint D folds paracentrally - trial Ana gtts OD 3-4x/day in AM hrs Tr PCF Raffi OD at last visit: 0.93D of cyl - no SR Mac OCT at last visit: WNL / no cme PLAN PF QD OD for 2 weeks then stop RTC 1 mo with repeat MRx Assessment & Plan (08/09/2022 11:44 AM MUD MILL TENDER): 1 month post op VA 20/30 Tr cor edema temporally - clear centrally Tr PCF no cell or flare OD but still reports blurred vision OD IOP 12 Raffi OD today: 0.93D of cyl - no SR Mac OCT today: WNL / no cme PLAN PF BID until out Recheck MRx next visit RTC 1 mo Assessment & Plan (07/13/2022 9:17 AM MUD MILL TENDER): Improved VA (ph 20/40) Excellent IOP Decreased sup edema (1+) / C/F On Saturday change from TD to PF OD QID RTC 1 mo Assessment & Plan (07/10/2022 8:16 AM MUD MILL TENDER): 1 day post op CE/PCIOL/iris hooks OD [...] 09/30/2020 Assessment & Plan (07/10/2022 7:43 AM MUD MILL TENDER): Hx PC rupture w/ AVIT / retained [...] afternoon.) Assessment & Plan (10/07/2020 8:27 AM MUD MILL TENDER): Here for IOP check off diamox. IOP [...] reviewed. Assessment & Plan (10/05/2020 8:39 AM MUD MILL TENDER): One day status post PPV/PPLx/AFx to the left eye. Doing well. Restart polytrim and prednisolone 4x/day, lumigan and prolensa 1x/day. Shield operated eye. Can stop neptazane. Post Op Position:None. Altitude precautions were reviewed with patient. No strenuous activity. Return to clinic in Saturday for IOP check. Assessment & Plan (10/02/2020 1:21 PM MUD MILL TENDER): IOP okay, vision/cornea improving Continue to monitor with plan for surgery Saturday All questions regarding surgery answered Assessment & Plan (09/30/2020 12:28 PM MUD MILL TENDER): Intra-ocular pressure is good at 15 today, [...] and wish to proceed. 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 CXR ordered today. [...] 05/01/2019 Assessment & Plan (07/25/2023 12:10 PM MUD MILL TENDER): Briefly discussed options for treatment (therapy vs medication vs both) Assessment & Plan (05/01/2019 9:20 PM CDT): Discussed that Xanax t.i.d. Is not appropriate treatment for underlying anxiety. If he is needing treatment for anxiety we can discuss other long-term options. He is taking Xanax very infrequent, will discontinue at this time. 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 Whether his episodic dyspnea represents [...] CDT): Patient will schedule follow-up with his quality rn. Continue atorvastatin 40 mg daily, aspirin 81 [...] of regular follow-up with his specialists and last ironer. Assessment & Plan (05/29/2019 10:26 AM CDT): Doing well. Continue current therapy. Assessment & Plan (05/01/2019 9:18 PM CDT): Recommended follow-up with Cardiology annually. Continue statin, antihypertensives, strict diabetes control and aspirin. Spent a significant amount of time discussing importance of compliance of medical therapy and importance of regular follow-up with his specialists and last ironer. Assessment & Plan (01/31/2018 2:20 PM CDT): Appears to be well controlled on his current regimen. Discontinue Plavix as it no longer appears to be necessary Type 2 diabetes mellitus with hyperlipidemia ([facility] S/HCC) 09/12/2016 Overview (10/31/2016): Hyperlipidemia Assessment & Plan (07/25/2023 12:08 PM MUD MILL TENDER): Ordered Dexcom continuous glucometer and supplies Lantus 40-50 units qam Glyburide 5 mg Gabapentin 100 mg TID Lab Results Component Value Date HGBA1C 8.5 04/08/2023 Assessment & Plan (08/15/2022 4:53 PM MUD MILL TENDER): Recent lipid panel reveals a total cholesterol [...] as ordered. and Will request records from last ironer. See note below Lipids will be reassessed [...] 2 Assessment & Plan (07/09/2024 1:17 PM MUD MILL TENDER): Today's A1c 9.6 Reasonable goal less than [...] as ordered. He would like a new last ironer. Recommend Dr. Gaviria. I discussed with him that with his severely uncontrolled diabetes and complications of diabetes and insulin regimen he needs to see endocrinology. Recommend dilated eye exam. Discussed importance of foot care. Discussed complications of uncontrolled diabetes including risk for diabetic retinopathy, neuropathy, risk for heart attack and stroke, nephropathy. Assessment & Plan (06/30/2020 1:02 PM MUD MILL TENDER): Hba1c was Lab Results Component Value Date [...] retinal exam. Patient referred to endocrinology at [facility]. He has not followed up with his previous last ironer in months. Discussed importance of taking insulin [...] hypertension Assessment & Plan (07/25/2023 12:05 PM MUD MILL TENDER): Today's BP is 146/79 goal is < 140/90 amlodipine 5 mg, metoprolol 50 mg, and valsartan 160 mg Assessment & Plan (07/26/2022 7:54 AM MUD MILL TENDER): -goal is < 140/90 -amlodipine 5 mg, [...] appointment. 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 Gender Identity Not on file Sexual Orientation Not on file Obstetrics History Last Filed Vital Signs Vital Sign Reading Time Taken Comments Blood Pressure 145/69 06/01/2024 1:20 PM MUD MILL TENDER Pulse 82 06/01/2024 12:43 PM MUD MILL TENDER Temperature 36.2 C (97.1 F) 04/08/2023 8:12 AM CDT Respiratory Rate 20 06/01/2024 12:43 PM MUD MILL TENDER Oxygen Saturation 96% 04/08/2023 8:12 AM CDT Inhaled Oxygen Concentration - - Weight 77.1 kg (170 lb) 06/01/2024 12:43 PM MUD MILL TENDER Height 182.9 cm (6' 0.01) 06/01/2024 12:[address] Body Mass Index 23.05 06/01/2024 12:43 PM MUD MILL TENDER Plan of Treatment Health Maintenance Due Date [...] 01/27, 05/01/2019 Medical Devices Implanted Type Area Occupational Health Specialist Device Identifier Shelf Expiration Date Model / Serial / Lot [employer] [id number] 21.0 Tecnis Optiedge 6mm 13mm 3 Piece Anterior Aspheric Monofocal Uv - [id number] - [id number] Implanted:Qty: 1 on 09/28/2020 by Chip Martínez MD at [facility] Advanced Medicine Lens Left: Eye [employer] [id number] 06/02/2024 [id number] / [id number] / [employer] Acrysof Iq Natural Stableforce Acrysert 6mm 13mm 1 Piece Foldable Sn60wf.210 - [id number] - [id number] Implanted:Qty: 1 on 07/09/2022 by Chin Steele MD at [facility] Lens Right: Lens [employer] [id number] 01/10/2027 [id number].21 0 / [id number] / Procedures Procedure Name Priority Date/Time Associated Diagnosis Comments POCT HEMOGLOBIN A1C Routine 06/01/2024 1 :44 PM MUD MILL TENDER Uncontrolled type 2 diabetes mellitus with hyperglycemia (HCC) DIABETIC EYE EXAM Routine 01/10/2024 EGFR Routine 07/09/2023 2:09 PM MUD MILL TENDER Annual physical exam Type 2 diabetes mellitus with hyperlipidemia (HCC) Hypertension complicating diabetes (HCC) 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 73 m2 [facility] [...] last reviewed 2021. Blood 07/09/2023 2:09 PM MUD MILL TENDER 07/09/2023 8:52 PM MUD MILL TENDER Palak Lees NP LAB BLOOD ORDERABLES Final Resul t [facility] [address] [facility] [place] [address] * (ABNORMAL) Albumin Creatinine Ratio, Urine (07/09/2023 2:09 PM MUD MILL TENDER) Albumin Ur 167.3 mg/L [facility] Comment: Interpretive Data No reference range established. Current interpretive data was last revised 2018. Creatinine Ur 73.1 mg/dL [facility] Comment: Interpretive Data No reference range established. Current interpretive data was last revised 2018. Albumin Creatinine Ratio, Ur 229(H) 1 - 29 mg/g [facility] Urine 07/09/2023 2:09 PM MUD MILL TENDER 07/09/2023 8:37 PM MUD MILL TENDER us Palak Lees NP LAB URINE ORDERABLES Final Resul t [facility] [address] Department [place] [address] * (ABNORMAL) Lipid panel (07/09/2023 2:09 PM MUD MILL TENDER) Cholesterol 174 30 - 199 mg/dL [facility] [...] 6 [facility] Blood 07/09/2023 2:09 PM MUD MILL TENDER 07/09/2023 8:36 PM MUD MILL TENDER us Palak Lees NP LAB BLOOD ORDERABLES Final Resul t [facility] [address] Department [place] [address] from Last 3 Months or Most Recently Relevant to Health Maintenance Additional Health Concerns Infection Onset Date Last Indicated MDR gram neg/ESBL 01/10/2023 01/10/2023 Insurance MEDICARE [employer] [facility] Address: [address] [place] [address] MEDICARE [employer] OOS MEDICARE MEDICARE [employer] OS Advance Directives For more information, please contact: [phone] * Full Code (Latest Code Status on [...] 4:32 PM 08/29/2020 4:32 PM Care Teams Hospital Receptionist Relationship Specialty [place] [address] [address] [facility] [address] [place] [address] PCP - General Nurse Practitioner 11/23/21 Suhas Lockhart MD Consulting Physician Ophthalmology 04/10/19 Holly Arrieta OD [address] [place] [address] Optometry 05/01/19 Neo Sykes MD [address] [place] [address] Consulting Physician Cardiology 05/01/19 Morales Palumbo MD [address] [place] [address] Consulting Physician Urology 06/30/20 [place] [address] [facility] [address] [place] [address] Consulting Physician Pulmonary Disease 03/17/21 [place] [address] [place] [address] Consulting Physician Endocrinology Diabetes & Metabolism 03/17/21 Veronica Betancur RN [address] [facility] [address] [place], [place] [id number] Server Programmer 06/03/24
--- OUTSIDE RECORDS SUMMARY | 2025-02-25 14:49 | XMS_ITS | Referral Summary ---
Author Organization [facility] Address [address] [place] [address] Care Team Providers Care Executive Chairman Of The Board Name Role Phone Suhas Lockhart MD Unavailable [phone] Holly Arrieta OD Unavailable Neo Sykes MD Unavailable Morales Palumbo MD Unavailable [phone] Royal Jarrell Howe MD Unavailable [phone] Kenroy Gaviria MD Unavailable Palak Lees NP Primary Care Provider Veronica Betancur RN Unavailable [phone] Encounters Date Type Department Care Team Description 01/14/2025 Telephone Family Care at [address] [address] Palak Lees NP Medical Question/Miscellaneous [...] capsule 3 06/14/20 23 Active blood-glucose transmitter (Terapiocom G6 Transmitter) deviceIndications: Type 2 diabetes mellitus with hyperlipidemia ([facility]),Controlled type 2 diabetes mellitus with hyperglycemia, with long-term current use of insulin ([facility]) Use to continuously monitor blood glucose 1 each 07/09/20 23 Active fluticasone propionate (FLONASE) 50 mcg/actuation nasal sprayIndications:C hronic bronchitis, unspecified chronic bronchitis type ([facility]) Administer 2 sprays into each nostril daily as needed for rhinitis 1 each 07/09/20 23 Active lancets miscIndications:Ty pe 2 diabetes mellitus with hyperlipidemia ([facility]),Uncontrolled type 2 diabetes mellitus with hyperglycemia ([facility]) Test blood sugar three times daily 300 each 3 09/05/[address] (PROTONIX) 40 mg EC tabletIndications: Gastroesophageal reflux disease without esophagitis Take 1 tablet (40 mg total) by mouth early childhood specialist before breakfast 90 tablet 3 05/21/20 24 [...] mellitus with hyperglycemia (HCC),Coronary artery disease of [place] artery of [place] heart with stable angina pectoris,Mixed hyperlipidemia Take [...] hyperglycemia, with long-term current use of insulin ([facility]) Use to continuously monitor blood sugar 1 [...] 22 Assessment & Plan (09/27/2022 11:34 AM [employer]): 3 month post op VA ph 20/40 OD with Mrx Ana drops did not help blurred vision OD Tr PCF OD, monitor for now Raffi OD (08/09/22): 0.93D of cyl - no SR Mac OCT (08/09/22): WNL / no cme PLAN MRx given today OU RTC 3 months w/ repeat MRx and confocal Assessment & Plan (08/30/2022 12:07 PM [employer]): 2 month post op VA ph 20/40 Faint D folds paracentrally - trial Ana gtts OD 3-4x/day in AM hrs Tr PCF Raffi OD at last visit: 0.93D of cyl - no SR Mac OCT at last visit: WNL / no cme PLAN PF QD OD for 2 weeks then stop RTC 1 mo with repeat MRx Assessment & Plan (08/09/2022 11:44 AM [employer]): 1 month post op VA 20/30 Tr cor edema temporally - clear centrally Tr PCF no cell or flare OD but still reports blurred vision OD IOP 12 Raffi OD today: 0.93D of cyl - no SR Mac OCT today: WNL / no cme PLAN PF BID until out Recheck MRx next visit RTC 1 mo Assessment & Plan (07/13/2022 9:17 AM [employer]): Improved VA (ph 20/40) Excellent IOP Decreased sup edema (1+) / C/F On Saturday change from TD to PF OD QID RTC 1 mo Assessment & Plan (07/10/2022 8:16 AM [employer]): 1 day post op CE/PCIOL/iris hooks OD [...] 09/30/2020 Assessment & Plan (07/10/2022 7:43 AM [employer]): Hx PC rupture w/ AVIT / retained [...] afternoon.) Assessment & Plan (10/07/2020 8:27 AM [employer]): Here for IOP check off diamox. IOP [...] reviewed. Assessment & Plan (10/05/2020 8:39 AM [employer]): One day status post PPV/PPLx/AFx to the left eye. Doing well. Restart polytrim and prednisolone 4x/day, lumigan and prolensa 1x/day. Shield operated eye. Can stop neptazane. Post Op Position:None. Altitude precautions were reviewed with patient. No strenuous activity. Return to clinic in Saturday for IOP check. Assessment & Plan (10/02/2020 1:21 PM [employer]): IOP okay, vision/cornea improving Continue to monitor with plan for surgery Saturday All questions regarding surgery answered Assessment & Plan (09/30/2020 12:28 PM [employer]): Intra-ocular pressure is good at 15 today, [...] and wish to proceed. 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 CXR ordered today. [...] 05/01/2019 Assessment & Plan (07/25/2023 12:10 PM [employer]): Briefly discussed options for treatment (therapy vs medication vs both) Assessment & Plan (05/01/2019 9:20 PM CDT): Discussed that Xanax t.i.d. Is not appropriate treatment for underlying anxiety. If he is needing treatment for anxiety we can discuss other long-term options. He is taking Xanax very infrequent, will discontinue at this time. Coronary artery disease of n ative artery of [place] heart with stable angina pectoris 01/31/2018 Assessment & Plan (07/25/2023 12:09 PM [employer]): Atorvastatin 80 mg and metoprolol 50 mg Assessment & Plan (08/15/2022 4:52 PM [employer]): Possibly stable. Whether his episodic dyspnea represents [...] CDT): Patient will schedule follow-up with his automatic furnace operator. Continue atorvastatin 40 mg daily, aspirin 81 [...] of regular follow-up with his specialists and donkey engine firer/fireman. Assessment & Plan (05/29/2019 10:26 AM CDT): Doing well. Continue current therapy. Assessment & Plan (05/01/2019 9:18 PM CDT): Recommended follow-up with Cardiology annually. Continue statin, antihypertensives, strict diabetes control and aspirin. Spent a significant amount of time discussing importance of compliance of medical therapy and importance of regular follow-up with his specialists and donkey engine firer/fireman. Assessment & Plan (01/31/2018 2:20 PM CDT): Appears to be well controlled on his current regimen. Discontinue Plavix as it no longer appears to be necessary Type 2 diabetes mellitus with hyperlipidemia ([facility] S/HCC) 09/12/2016 Overview (10/31/2016): Hyperlipidemia Assessment & Plan (07/25/2023 12:08 PM [employer]): Ordered Dexcom continuous glucometer and supplies Lantus 40-50 units qam Glyburide 5 mg Gabapentin 100 mg TID Lab Results Component Value Date HGBA1C 8.5 04/08/2023 Assessment & Plan (08/15/2022 4:53 PM [employer]): Recent lipid panel reveals a total cholesterol [...] as ordered. and Will request records from donkey engine firer/fireman. See note below Lipids will be reassessed [...] 2 Assessment & Plan (07/09/2024 1:17 PM [employer]): Today's A1c 9.6 Reasonable goal less than 7.5 Medication compliance seems to be an issue, I do also note some mild memory impairment today CGM with continuous use Sportingo Tammy Continue insulin glargine 40-50 units daily [...] as ordered. He would like a new donkey engine firer/fireman. Recommend Dr. Gaviria. I discussed with him that with his severely uncontrolled diabetes and complications of diabetes and insulin regimen he needs to see endocrinology. Recommend dilated eye exam. Discussed importance of foot care. Discussed complications of uncontrolled diabetes including risk for diabetic retinopathy, neuropathy, risk for heart attack and stroke, nephropathy. Assessment & Plan (06/30/2020 1:02 PM [employer]): Hba1c was Lab Results Component Value Date [...] retinal exam. Patient referred to endocrinology at [facility]. He has not followed up with his previous donkey engine firer/fireman in months. Discussed importance of taking insulin [...] hypertension Assessment & Plan (07/25/2023 12:05 PM [employer]): Today's BP is 146/79 goal is < 140/90 amlodipine 5 mg, metoprolol 50 mg, and valsartan 160 mg Assessment & Plan (07/26/2022 7:54 AM [employer]): -goal is < 140/90 -amlodipine 5 mg, [...] appointment. Assessment & Plan (06/30/2020 1:03 PM [employer]): Goal blood pressure is less than 140/85 [...] 1 Assessment & Plan (07/25/2023 12:09 PM [employer]): Pantoprazole 40 mg Assessment & Plan (05/01/2019 [...] on file Legal Sex Male 4:08 PM [employer] Gender Identity Not on file Sexual Orientation Not on file Last Filed Vital Signs Vital Sign Reading Time Taken Comments Blood Pressure 145/69 06/01/2024 1:20 PM [employer] Pulse 82 06/01/2024 12:43 PM [employer] Temperature 36.2 C (97.1 F) 04/08/2023 8:12 AM CDT Respiratory Rate 20 06/01/2024 12:43 PM [employer] Oxygen Saturation 96% 04/08/2023 8:12 AM CDT Inhaled Oxygen Concentration - - Weight 77.1 kg (170 lb) 06/01/2024 12:43 PM [employer] Height 182.9 cm (6' 0.01) 06/01/2024 12:[address] Body Mass Index 23.05 06/01/2024 12:43 PM [employer] Plan of Treatment Not on file Medical Devices Implanted Type Area Heatset Winder Operator Device Identifier Shelf Expiration Date Model / Serial / Lot Appscio [id number] 21.0 Tecnis Optiedge 6mm 13mm 3 Piece Anterior Aspheric Monofocal Uv - [id number] - [id number] Implanted:Qty: 1 on 09/28/2020 by Chip Martínez MD at [facility] Lens Left: Eye [employer] [id number] 06/02/2024 [id number] 0 / [id number] / [employer] Acrysof Iq Natural Stableforce Acrysert 6mm 13mm 1 Piece Foldable Sn60wf.210 - [id number] - [id number] Implanted:Qty: 1 on 07/09/2022 by Chin Steele MD at [facility] Lens Right: Lens [employer] [id number] 01/10/2027 SN60WF.21 0 / [id number] / Procedures Procedure Name Priority Date/Time Associated Diagnosis Comments POCT HEMOGLOBIN A1C Routine 06/01/2024 1 :44 PM [employer] Uncontrolled type 2 diabetes mellitus with hyperglycemia (HCC) DIABETIC EYE EXAM Routine 01/10/2024 EGFR Routine 07/09/2023 2:09 PM [employer] Annual physical exam Type 2 diabetes mellitus with hyperlipidemia (HCC) Hypertension complicating diabetes (HCC) Coronary artery disease of [place] artery of [place] heart with stable angina pectoris LIPID PANEL Routine 07/09/2023 2:09 PM [employer] Annual physical exam ALBUMIN CREATININE RATIO, URINE Routine 07/09/2023 2:09 PM [employer] Microalbuminuria from Last 3 Months or Most Recently Relevant to Health Maintenance Results * POCT hemoglobin A1c (06/01/2024 1:44 PM [employer]) Hemoglobin A1C, POC 9.6 4.0 - 5.6 % Blood 06/01/2024 1:44 PM [employer] Missy Dangelo NP POINT OF CARE TEST ORDERABL ES Final Result * (ABNORMAL) Diabetic Eye Exam (01/10/2024) Historical Provider HEALTH MAINTENANCE Final Result * eGFR (07/09/2023 2:09 PM [employer]) eGFR 41 mL/min/1. 73 m2 NAYA CROWLEY [...] last reviewed 2021. Blood 07/09/2023 2:09 PM [employer] 07/09/2023 8:52 PM [employer] Palak Lees NP LAB BLOOD ORDERABLES Final Resul t Performing Organization Address [facility] de Phone Number NAYA KEO [address] [place] [address] * (ABNORMAL) Albumin Creatinine Ratio, Urine (07/09/2023 2:09 PM [employer]) Albumin Ur 167.3 mg/L NAYA Comment: Interpretive Data No reference range established. Current interpretive data was last revised 2018. Creatinine Ur 73.1 mg/dL NAYA Comment: Interpretive Data No reference range established. Current interpretive data was last revised 2018. Albumin Creatinine Ratio, Ur 229(H) 1 - 29 mg/g NAYA Urine 07/09/2023 2:09 PM [employer] 07/09/2023 8:37 PM [employer] Palak Lees NP LAB URINE ORDERABLES Final Resul t Performing Organization Address [facility] Co de Phone Number NAYA CROWLEY [address] [employer] [place] [address] * (ABNORMAL) Lipid panel (07/09/2023 2:09 PM [employer]) Cholesterol 174 30 - 199 mg/dL NAYA [...] 6 NAYA CROWLEY Blood 07/09/2023 2:09 PM [employer] 07/09/2023 8:36 PM [employer] Palak Lees NP LAB BLOOD ORDERABLES Final Resul t NAYA [address] Department [place] [address] from Last 3 Months or Most Recently Relevant to Health Maintenance Additional Health Concerns Infection Onset Date Last Indicated MDR gram neg/ESBL 01/10/2023 01/10/2023 Insurance * Guarantor: Romain Hogan Account Type Relation to Patient Date of Phone Billing Address Personal/Family Self [address] [place] [address] MEDICARE [employer] OOS MEDICARE [employer] [facility] MEDICARE * Guarantor: Romain Hogan Account Type Relation to Patient Date of Phone Billing Address Personal/Family Self [address] [place] [address] MEDICARE BLUE ACCESS OOS Advance Directives For more information, please contact: [phone] * Full Code (Latest Code Status on [...] 4:32 PM 08/29/2020 4:32 PM Care Teams Executive Chairman Of The Board Relationship Specialty [place] [address] [facility] [address] [place] [address] PCP - General Nurse Practitioner 11/23/21 Suhas Lockhart MD Consulting Physician Ophthalmology 04/10/19 Holly Arrieta OD [address] [place] [address] Optometry 05/01/19 Neo Sykes MD [address] [place] [address] Consulting Physician Cardiology 05/01/19 Morales Palumbo MD [address] [place] [address] Consulting Physician Urology 06/30/20 [place] [address] [facility] [address] [place] [address] Consulting Physician Pulmonary Disease 03/17/21 [place] [address] [facility] [address] [place] [address] Consulting Physician Endocrinology Diabetes & Metabolism 03/17/21 Veronica Betancur RN [address] [place] [address] [facility] [address] [place] [address] Esters And Emulsifiers Supervisor 06/03/24
--- OUTSIDE RECORDS SUMMARY | 2025-02-25 14:49 | XMS_ITS | Encounter Summary ---
Author Organization [facility] Address [address] [address] Care Team Providers Care Pay Agent Name Role Phone Julee Lara Primary Care Provider [phone] Julee Lara Primary Care Provider [phone] No, Physician Primary Care Provider Suhas Lockhart MD Unavailable [phone] Genia Barba MD Unavailable Marci Muro MD Unavailable [phone] Alize Vega SPARK PLUG ASSEMBLER Primary Care Provider [phone] Holly Arrieta OD Unavailable [phone] Neo Sykes MD Unavailable Heather Sibley SPARK PLUG ASSEMBLER Primary Care Provider [phone] Alize Vega SPARK PLUG ASSEMBLER Primary Care Provider [phone] Domingo Tinajero MD Unavailable Morales Palumbo MD Unavailable [phone] Layne Junior MA Unavailable [phone] Royal Jarrell Howe MD Unavailable [phone] Kenroy Gaviria MD Unavailable [phone] Palak Lees SPARK PLUG ASSEMBLER Primary Care Provider Paloma CárdenasW Unavailable [phone] Veronica Betancur RN Unavailable [phone] Encounter Details Date Type Department Care Team (Latest Contact Info) Description 09/12/2016 Orders Only [facility] Cardiology ProviderBlaine MD [address] [place] [phone] Social History Tobacco Use Types Packs/Day Years Used Date Smoking Tobacco: Never Alcohol Use Standard Drinks/Week Comments No 0 (1 standard drink = 0.6 oz pur e alcohol) Sex and Gender Information Value Date Recorded Sex Assigned at Not on file 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 Gender Identity Not on file Sexual Orientation [...] documented as of this encounter Care Teams Pay Agent Relationship Specialty Start Date End Date Manuel Lara MD [address] [address] PCP - General 09/25/16 10/25/16 Manuel Lara MD [address] [address] PCP - General 11/02/15 09/24/16 No, Physician PCP - General 01/31/18 04/30/19 Alize Vega SPARK PLUG ASSEMBLER PCP - General Family Medicine 05/01/19 10/18/19 Heather Sibley, SPARK PLUG ASSEMBLER [address] [place] [address] PCP - General Family Medicine 10/19/19 01/18/20 Alize Vega, SPARK PLUG ASSEMBLER PCP - General Family Medicine 01/19/20 11/22/21 Palak Lees, ROSSI [address] [address] PCP - General Nurse Practitioner 11/23/21 Suhas Lockhart MD Consulting Physician Ophthalmology 04/10/19 Genia Barba MD Consulting Physician Family Medicine 04/10/19 04/30/19 Marci Muro MD Endocrinology 05/01/19 02/15/20 Holly Arrieta OD [address] [place] [address] Optometry 05/01/19 Neo Sykes MD [address] [place] [address] Consulting Physician Cardiology 05/01/19 [place] [address] [facility] [address] [place] [address] Consulting Physician Endocrinology Diabetes & Metabolism 02/16/20 03/16/21 [place] [address] [facility] [address] [place] [address] Consulting Physician Urology 06/30/20 Layne Junior MA [address] [place] [address] [address] [place] [address] ACO Care Ski Guide 11/29/20 11/30/20 [place] [address] [facility] [address] [place] [address] Consulting Physician Pulmonary Disease 03/17/21 [place] [address] [facility] [address] [place] [address] Consulting Physician Endocrinology Diabetes & Metabolism 03/17/21 Paloma Cárdenas, SEWING MACHINE OPERATOR PLASTIC ZIPPER [address] [place] [address] [address] [place] [address] Bill Recapitulation Clerk 06/02/24 06/03/24 Veronica Betancur, RN [address] [facility] [address] [place] [address] Entry Level Receptionist 06/03/24 documented as of this encounter
--- OUTSIDE RECORDS SUMMARY | 2025-02-25 14:49 | XMS_ITS | Encounter Summary ---
Author Organization [facility] Address [address] [place] [address] Care Team Providers Care Abrasive Grader Name Role Phone Julee Lara Primary Care Provider [phone] Encounter Details Date Type Department Care Team (Late st Contact Info) Description 01/02/2005 Outpatient Historical [facility] [address] [place] [address] 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
--- OUTSIDE RECORDS SUMMARY | 2025-02-25 14:49 | XMS_ITS | Encounter Summary ---
Author Organization [facility] Address [address] [place] [address] Care Team Providers Care Science Professor Name Role Phone Julee Lara Primary Care Provider [phone] Encounter Details Date Type Department Care Team (Latest Contact Info) Description 09/20/2008 Outpatient Historical HIS CARD METAL BOX MAKER Portillo Dhillon MD NO ADDRESS ON FILE Cor Athrscl-Uns Vessel Social History Tobacco Use Types Packs/Day Years Used Date Smoking Tobacco: Former Cigarettes Alcohol Use Standard Drinks/Week Comments No 0 (1 standard drink = 0.6 oz pur e alcohol) Sex and Gender Information Value Date Recorded Sex Assigned at Not on file Legal Sex Male 2:41 AM ARBORICULTURE INSTRUCTOR Gender Identity Not on file Sexual Orientation Not on file documented as of this encounter Plan of Treatment Not on file documented as of this encounter Procedures Procedure Name Priority Date/Time Associated Diagnosis Comments CBC WITH DIFFERENTIAL Stat 09/21/2008 9:37 AM ARBORICULTURE INSTRUCTOR PROTIME-INR Stat 09/21/2008 9:37 AM ARBORICULTURE INSTRUCTOR BASIC METABOLIC PANEL Stat 09/21/2008 9:37 AM ARBORICULTURE INSTRUCTOR documented in this encounter Results * CBC WITH DIFFERENTIAL (09/21/2008 9:37 AM ARBORICULTURE INSTRUCTOR) MONOCYTES 7 3 - 13 % [facility] MONOCYTE ABSOLUTE 0.42 0.10 - 1.30 K/uL [facility] NEUTROPHILS 51 45 - 70 % [facility] NEUTROPHIL ABSOLUTE 3.26 1.90 - 7.00 K/uL [facility] EOSINOPHILS 5 0 - 7 % [facility] EOSINOPHIL ABSOLUTE 0.29 0.00 - 0.70 K/uL [facility] LYMPHOCYTES 38 16 - 45 % [facility] LYMPHOCYTE ABSOLUTE 2.46 0.70 - 4.50 K/uL [facility] BASOPHILS 0 0 - 2 % [facility] BASOPHILS ABSOLUTE 0.02 0.00 - 0.20 K/uL [facility] Blood specimen (specimen) 09/21/2008 9:37 AM ARBORICULTURE INSTRUCTOR 09/21/2008 9:41 AM ARBORICULTURE INSTRUCTOR us Portillo Dhillon MD HEMATOLOGY ORDERABLES Edited INTERFACE SYSTEM Refer to clinic/hospital department [facility] CLIA# [id number] [address] [place] [address] * PROTIME-INR (09/21/2008 9:37 AM ARBORICULTURE INSTRUCTOR) PROTIME 13.6 12.7 - 15.1 Seconds [facility] INR 1.0 0.9 - 1.1 [facility] Comment: INR Therapeutic Range: Adult: 2.0 - 3.0 for pulmonary embolism or prophylaxis against venous thrombosis or systemic embolization. 2.0 - 3.0 for patients with tissue heart valves. 2.5 - 3.5 for patients with mechanical heart valves or post [facility]. Pediatric (12 years and under): 1.5 - 3.0 Although the target range in children is not well established, INR values of 1.5 - 3.0 are recommended for most patients. Higher values have been used in children with prosthetic cardiac valves and hereditary clotting disorders. (<3 days) therapeutic ranges have not been established. Blood specimen (specimen) 09/21/2008 9:37 AM ARBORICULTURE INSTRUCTOR 09/21/2008 9:41 AM ARBORICULTURE INSTRUCTOR us Portillo Dhillon MD HEMATOLOGY ORDERABLES Final Resu lt Performing Organization Address City/[facility] de Phone Number INTERFACE SYSTEM Refer to clinic/hospital department [facility] CLIA# [id number] [address] [place] [address] * (ABNORMAL) BASIC METABOLIC PANEL (09/21/2008 9:37 AM ARBORICULTURE INSTRUCTOR) GFR, >60 >=60 mL/min/1. 7 sq meter [facility] GLUCOSE 194(H) 65 - 99 mg/dL [facility] SODIUM 139 135 - 145 mmol/L [facility] GFR >60 >=60 mL/min/1. 7 sq meter [facility] Comment: Modification of Diet in Renal Disease (MDRD) study formula. Estimated GFR rate interpretative information for both Americans and non- Americans is available on the [facility] Intranet at: [email or web address] Select: Lab Policies and Procedures Select: Reference Ranges - GFR CALCIUM 9.9 8.6 - 10.2 mg/dL [facility] CO2 26 22 - 30 mmol/L [facility] CREATININE 1.12 0.67 - 1.17 mg/dL [facility] POTASSIUM 4.6 3.5 - 4.9 mmol/L [facility] BUN 21(H) 6 - 20 mg/dL [facility] CHLORIDE 105 96 - 108 mmol/L [facility] Blood specimen (specimen) 09/21/2008 9:37 AM ARBORICULTURE INSTRUCTOR 09/21/2008 9:41 AM ARBORICULTURE INSTRUCTOR Portillo Dhillon MD CHEMISTRY ORDERABLES Edited Performing Organization Address [facility]/ZIP Co de Phone Number INTERFACE SYSTEM Refer to clinic/hospital department [facility] CLIA# [id number] [address] [place] [address] documented in this encounter Visit Diagnoses Diagnosis Coronary atherosclerosis of unspecified type of vessel, manzanita or graft documented in this encounter Care Teams Science Professor Relationship Specialty Start Date End Date Manuel Lara MD PCP - General 08/26/08 documented as of this encounter
--- OUTSIDE RECORDS SUMMARY | 2025-02-25 14:49 | XMS_ITS | Encounter Summary ---
Author Organization [employer] [facility] Address [address] [place] [address] Care Team Providers Care Cinder Pitman Name Role Phone Julee Lara Primary Care Provider Encounter Details Date Type Department Care Team (Late st Contact Info) Description 06/04/2007 Emergency HIS EMERGENCY ROOM JEROD Vazquez Jr., Portillo Xiao MD [facility] [place] [address] Er, Authorized P NO ADDRESS ON FILE Closed Fracture of Glenoid Cavity and Neck of Scapula (Primary Dx) Social History Tobacco Use Types Packs/Day Years Used Date Smoking Tobacco: Never Assessed Sex and Gender Information Value Date Recorded Sex Assigned at Not on file Legal Sex Male 2:41 AM SPARKER AND PATCHER Gender Identity Not on file Sexual Orientation Not on file documented as of this encounter Plan of Treatment Not on file documented as of this encounter Visit Diagnoses Diagnosis Closed fracture of glenoid cavity and neck of scapula- Primary documented in this encounter Care Teams Cinder Pitman Relationship Specialty Start Date End Date Manuel Lara MD PCP - General 08/26/08 documented as of this encounter
--- OUTSIDE RECORDS SUMMARY | 2025-02-25 14:49 | XMS_ITS | Clinical Summary ---
Author Organization [facility] Administrative Offices Address [address] [place] [address] Care Team Providers Care Aquatics Instructor Name Role Phone Julee Lara Primary Care Provider [phone] Allergies Active Allergy Reactions Criticality Noted Date [...] times daily. 20 Tablet 07/20/2017 2:52 PM FISH PEDDLER 7 Active metroNIDAZOLE (FLAGYL) 500 mg tablet Take 1 Tablet by mouth 3 times daily. 30 Tablet 07/20/2017 2:52 PM FISH PEDDLER 7 Active Active Problems Problem Noted Date [...] on file Legal Sex Male 2:41 AM FISH PEDDLER Gender Identity Not on file Sexual Orientation Not on file Occupation Industry Job Start Date Job End Date Not on file Not on file Not on file Not on file Last Filed Vital Signs Vital Sign Reading Time Taken Comments Blood Pressure 133/60 07/20/2017 12:01 PM FISH PEDDLER Pulse 80 07/20/2017 12:01 PM FISH PEDDLER Temperature 36.8 C (98.3 F) 07/20/2017 12:01 PM FISH PEDDLER Respiratory Rate 18 07/20/2017 12:0 1 PM FISH PEDDLER Oxygen Saturation 94% 07/20/2017 12: 01 PM FISH PEDDLER Inhaled Oxygen Concentration - - Weight 100.6 kg (221 lb 11.2 oz) 07/18/2017 7:02 PM FISH PEDDLER Height 182.9 cm (6') 07/18/2017 7:02 PM FISH PEDDLER Body Mass Index 30.07 07/18/2017 7:02 PM FISH PEDDLER Plan of Treatment Health Maintenance Due Date [...] Comments HEMOGLOBIN A1C Routine 07/18/2017 11:40 AM FISH PEDDLER LIPID PANEL Routine 08/16/2009 9:28 AM FISH PEDDLER Urinary Tract Infection, Site not Specified Enlarged Prostate DM (Diabetes Mellitus) ([facility]) Pure Hyperglyceridemia from Last 3 Months or Most Recently Relevant to Health Maintenance Results * (ABNORMAL) HEMOGLOBIN A1C (07/18/2017 11:40 AM FISH PEDDLER) HEMOGLOBIN A1C 10.2(H) 4.0 - 6.0 % 07/18/2017 7:14 PM FISH PEDDLER [facility] EST. AVG GLUCOSE, A1C 246 mg/dL 07/18/2017 7:14 PM FISH PEDDLER [facility] Blood Venipuncture / Unknown 07/18/2017 11:40 AM FISH PEDDLER 07/18/2017 11:46 AM FISH PEDDLER Mathew Stapleton MD CHEMISTRY ORDERABLES Final Re sult [facility] CLIA# [id number] [address] [place] [address] * (ABNORMAL) LIPID PANEL (08/16/2009 9:28 AM FISH PEDDLER) CHOLESTEROL 152 100 - 199 mg/dL [facility] TRIGLYCERIDE 204(H) 10 - 149 mg/dL [facility] HDL 32(L) 40 - 59 mg/dL [facility] CHOL/HDL RATIO 4.8 2.0 - 5.0 [facility] Mine [facility] LDL CALCULATED 79 <=99 mg/dL [facility] LIPID PANEL COMMENT See Below [facility] Comment: The adult ATP and pediatric NCEP classifications for lipids are available on the [facility] Intranet at: [email or web address] Select: Lab Policies and Procedures,Current Select: Lipid Panel Interpretation Blood specimen (specimen) 08/16/2009 9:28 AM FISH PEDDLER 08/16/2009 1:13 PM FISH PEDDLER Manuel Lara MD CHEMISTRY ORDERABLES Edited [facility] CLIA# [id number] [address] [place] [address] from Last 3 Months or Most Recently Relevant to Health Maintenance Insurance MEDICARE PART A AND B Richard Pauer - 3P BLUE ACCESS/TRUE BLUE PPO * Guarantor: Romain Hogan Account Type Relation to Patient Date of Phone Billing Address Personal/Family Self [address] [place] [address] [employer] Medicare Part D Advance Directives For more information, please contact: [phone] * Full Code (Latest Code Status on File) Date Activated Date Inactivated Comments 07/18/2017 5:39 PM 07/20/2017 4:50 PM * Full Code Date Activated Date Inactivated Comments 08/19/2011 9:54 AM 08/21/2011 5:17 PM * Full Code Date Activated Date Inactivated Comments 11/03/2010 1:04 PM 11/04/2010 11:14 AM * Full Code Date Activated Date Inactivated Comments 11/03/2010 5:08 AM 11/03/2010 1:04 PM Care Teams Aquatics Instructor Relationship Specialty Start Date End Date Manuel Lara MD PCP - General 08/26/08
--- OUTSIDE RECORDS SUMMARY | 2025-02-25 14:49 | XMS_ITS | Clinical Summary ---
Author Organization [facility] [employer] Address [address] [place] [address] Care Team Providers Care Paper Cutting Machine Operator Name Role Phone Dimitri Benton MD Primary Care Provider [phone] Source Comments [facility] [employer],non-owned Affiliates and Associated Physician Practices is amultiple site organization consisting of ambulatory clinics and hospital sitesin [place], [place], [place] and [place]. This disclosure is being madepursuant to the Care Everywhere program and may not contain all information available regarding this patient. 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
[2025-02-25 14:53] LABS: Add Urine Microscopic? YES; Appearance Urine Clear (Clear); Glucose Urine UA 3+ mg/dL (Negative); Leukocyte Esterase Ur Trace LEU/UL (Negative); Nitrate Urine Negative (Negative); Non Pathogenic Casts 0-2; Specific Grav Ur 1.031 (1.001-1.035)
[2025-02-25 14:55] LABS: Hematocrit 48.5 % (42.0-52.0); Hemoglobin 15.8 g/dL (14.0-18.0); Immature Granulocyte Percent A 0.5 % (0-0.5); Lymphocytes Absolute Auto 0.90 K/mm3 (0.9-3.2); Mean Corpuscular HGB Conc 32.6 g/dl (32-36); Mean Corpuscular Hemoglobin 28.8 pg (26-34); Mean Corpuscular Volume 88.3 fl (80-100); Nucleated Red Blood Cells Absolute Auto 0.000 K/mm3 (0.0-0.012); Nucleated Red Blood Cells Perc 0.0 % (0.0-0.2); Platelet Count Result 176 k/mm3 (150-375); Red Blood Count 5.49 M/mm3 (4.6-6.20); White Blood Count 9.1 K/mm3 (4.5-10.0)
[2025-02-25 15:03] LABS: Alanine Aminotransferase 12 U/L (6-50); Albumin Level 3.8 g/dL (3.5-5.1); Alkaline Phosphatase 169 U/L (38-126); Anion Gap 7 mmol/L (4-12); Aspartate Amino Transferase 19 U/L (17-59); Bilirubin,Total 0.8 mg/dL (0.2-1.3); Blood Urea Nitrogen 18 mg/dL (9-20); Calcium 9.6 mg/dL (8.4-10.2); Carbon Dioxide 27 mmol/L (22-30); Chloride 101 mmol/L (98-107); Creatine Kinase 26 U/L (55-170); Estimated CRCL calculation 40 ml/min; Estimated Glomerular Filt Rate 47; Glucose 397 mg/dL (65-110); Potassium 4.7 mmol/L (3.4-5.0); Sodium 135 mmol/L (137-145); Total Protein 7.3 g/dL (6.3-8.2)
[2025-02-25] MEDS: LACTATED RINGERS 1,000 ML 999 ML IV CONT (16:03)
[2025-02-25] MEDS: MORPHINE SULFATE (*CRX) 2 MG/ML INJ IV PUSH (17:52)
[2025-02-25] MEDS: INSULIN HUMAN REGULAR (*BKC) 100 UNITS/ML 10 UNITS SUB-Q (18:35)
--- NOTE | 2025-02-25 18:42 | ADMGEN ---
This patient, Romain Hogan, was admitted to Medical Room 349-01. Patient/family oriented to hospital policies and general routines including ID bracelet, bed and alarms, visiting hours, pain management, procedures, bathroom and other care routines, personal items, smoking policy, room service/diet, and visiting hours. Information on how to activate the Rapid Response Team has been discussed. Patient/Family are encouraged to report perceived risks to care and to ask questions if they do not understand what they are told or what they should do.
--- NOTE | 2025-02-25 21:17 | ED_ITS ---
HPI - Fall General Chief Complaint: Fall Stated Complaint: FALL Time Seen by Provider: 02/25/25 14:08 History of Present Illness HPI Narrative: Patient presents here after he had of loss of balance and fell, fell onto his knees, denies any head injury or injuries elsewhere, however unable to get back on his own, his uses a cane also was unable to help get him up. He denies any pain anywhere other than to his knees Related Data Allergies Allergy/AdvReac Type Severity Reaction Status Date / Time No Known Allergies Allergy Verified 02/25/25 15:12 Review of Systems 2 Review of Systems: All systems reviewed & are unremarkable except as noted in HPI and below PMFSH Social History Social History Smoking status: Never smoker Second hand tobacco smoke exposure: No Alcohol intake: never Substance use: never Lack of Transportation: No Lack of Food: Never True Current Housing: I Have Housing Concerned About Future Housing: No Difficulty Paying Gas/Electric Bills: No Difficulty Paying for Meds: No Currently Unemployed: No Education: High School Diploma/GED Difficulty w/ Childcare or Family Care: No Spiritual care concerns: No Exam 2 Narrative: EXAMINATION OF ORGAN SYSTEMS/BODY AREAS: Constitutional: Vital signs per nursing GENERAL:[No acute distress, non-toxic appearing.] HEAD: Normal with no signs of head trauma. EYES: EOMI, conjunctiva normal ENT: Hearing grossly intact LUNGS: Nonlabored breathing. HEART: [Regular rate and rhythm] ABD: [Soft], [nontender to palpation] EXT: Normal passive range of motion to all extremities except for pain to the right knee, no obvious deformity SKIN: [No rashes or lesions.] NEURO: [Alert, No gross focal sensory or strength deficits.] PSYCH: Normal affect Course Vital Signs Vital signs: Vital Signs Temperature 97.9 F 02/25/25 12:59 Pulse Rate 98 02/25/25 12:59 Respiratory Rate 16 02/25/25 12:59 Blood Pressure 136/81 02/25/25 12:59 Pulse Oximetry 98 02/25/25 12:59 Temperature 97.9 F 02/25/25 12:59 Pulse Rate 81 02/25/25 18:15 Respiratory Rate 16 02/25/25 18:15 Blood Pressure 161/81 H 02/25/25 18:01 Pulse Oximetry 96 02/25/25 18:01 Oxygen Delivery Room Air 02/25/25 19:06 MDM - Fall MDM Narrative Medical decision making narrative: Patient presents here after mechanical fall, denies hitting his head, he is reporting a lot of pain to his knees and inability to ambulate. Unfortunately he lives alone with his who is also ill and unable to help him get around. Labs are within acceptable limits, thankfully no and rhabdomyolysis, I will give him some fluids since he has been on the ground for a while, imaging obtained of his knees which thankfully are normal, and he will be admitted for possible placement and rehab since he cannot go home safely. Patient is agreeable to plan, but the bedside also agreeable, discussed with hospitalist for admission. Lab Data 02/25/25 14:32 02/25/25 14:32 Labs: Lab Results 02/25/25 02/25/25 Range/Units 14:32 14:41 WBC 9.1 (4.5-10.0) K/mm3 RBC 5.49 (4.6-6.20) M/mm3 Hgb 15.8 (14.0-18.0) g/dL Hct 48.5 (42.0-52.0) % MCV 88.3 (80-100) fl MCH 28.8 (26-34) pg MCHC 32.6 (32-36) g/dl RDW 13.7 (11.5-14.5) % Plt Count 176 (150-375) k/mm3 MPV 8.9 (7.4-10.4) fl Immature Gran % (Auto) 0.5 (0-0.5) % Neut % (Auto) 81.8 H (45.5-73.1) % Lymph % (Auto) 9.8 L (18.3-44.2) % [place] % (Auto) 5.7 (2.6-8.5) % Eos % (Auto) 1.8 (0-4.4) % Baso % (Auto) 0.4 (0.2-1.2) % Lymph # (Auto) 0.90 (0.9-3.2) K/mm3 [place] # (Auto) 0.5 (0.1-0.6) K/mm3 Eos # (Auto) 0.2 (0-0.3) K/mm3 Baso # (Auto) 0.0 (0.0-0.1) K/mm3 Abs Immat Gran (auto) 0.05 H (0.00-0.031) K/mm3 Absolute Neuts (auto) 7.5 H (1.3-6.7) K/mm3 Absolute Nucleated RBC 0.000 (0.0-0.012) K/mm3 Nucleated RBC % 0.0 (0.0-0.2) % Sodium 135 L (137-145) mmol/L Potassium 4.7 (3.4-5.0) mmol/L Chloride 101 (98-107) mmol/L Carbon Dioxide 27 (22-30) mmol/L Anion Gap 7 (4-12) mmol/L BUN 18 (9-20) mg/dL Creatinine 1.44 H (0.7-1.3) mg/dL Estim Creat Clear Calc 40 ml/min Estimated GFR 47 L (59 - ) Glucose 397 H (65-110) mg/dL Lactic Acid 1.5 (0.7-2.0) mmol/L Calcium 9.6 (8.4-10.2) mg/dL Total Bilirubin 0.8 (0.2-1.3) mg/dL AST 19 (17-59) U/L ALT 12 (6-50) U/L Alkaline Phosphatase 169 H (38-126) U/L Total Creatine Kinase 26 L (55-170) U/L Total Protein 7.3 (6.3-8.2) g/dL Albumin 3.8 (3.5-5.1) g/dL Urine Color Yellow (Yellow) Urine Appearance Clear (Clear) Urine pH 6.0 (5.0-9.0) Ur Specific [place] 1.031 (1.001-1.035) Urine Protein 3+ H (Negative) mg/dL Urine Glucose (UA) 3+ H (Negative) mg/dL Urine Ketones Trace H (Negative) mg/dL Ur Blood (Man) Negative (Negative) Urine Nitrate Negative (Negative) Urine Bilirubin Negative (Negative) Urine Urobilinogen 1.0 (<2.0) mg/dL Leukocyte Esterase Rfl Trace H (Negative) BERTHA/UL Urine RBC 3-5 H (0-2) /hpf Urine WBC 21-50 H (0-3) /hpf Ur Squamous Epith Cells None seen (Few) /hpf Urine Bacteria None seen /hpf Urine Casts 0-2 Discharge Plan Discharge Clinical Impression: Injury of knee, Inability to ambulate due to knee Patient Disposition: Still a Patient Condition: Guarded Prognosis
[2025-02-25] MEDS: INSULIN ASPART (*BKC) 100 UNITS/ML 7 UNITS SUB-Q (22:11)
--- NOTE | 2025-02-25 22:16 | PC.NURSE ---
Tool Machine Set Up Operator spoke with daughter by phone and confirmed that patient takes no home medications at this time.
--- NOTE | 2025-02-25 22:47 | PM.IMHP ---
H&P: HPI History of Present Illness Date/Time: 02/25/25 22:47 Chief Complaint: Fall at home Narrative: 79-year-old male with history of insulin-dependent diabetes however noncompliant, presents to [facility] ER on 02/25/2025 as he lost his balance and fell onto his knees at home and then hit his head. He typically uses a walker. His daughter Savannah helps with history over the phone. After he had fallen they were able to get him up but he was complaining of so much pain later that he was brought in. The patient is reportedly very stubborn not complain of pain or ever leave the house. He also self reports he stopped taking insulin because it costs too much. Serum creatinine 1.44 glucose 397. Analysis WBCs but no bacteria or nitrates. Patient denies urinary symptoms. Bilateral knee x-rays without acute findings. X-ray pelvis [id number] bilateral hip and sacroiliac osteoarthritis. No acute findings. He was given 1 L lactated Ringer's, morphine 2 mg IV. Review of Systems Review of Systems: All systems reviewed & are unremarkable except as noted in HPI and below (Subjective/HPI) [facility] Social History Social History Smoking status: Never smoker Second hand tobacco smoke exposure: No Alcohol intake: never Substance use: never Lack of Transportation: No Lack of Food: Never True Current Housing: I Have Housing Concerned About Future Housing: No Difficulty Paying Gas/Electric Bills: No Difficulty Paying for Meds: No Currently Unemployed: No Education: High School Diploma/GED Difficulty w/ Childcare or Family Care: No Spiritual care concerns: No Meds Home Medications and Allergies Home Medications ?Medication ?Instructions ?Recorded ?Confirmed ?Type triamcinolone acetonide 0.1 % 1 applic topical BID PRN itching 02/25/25 02/25/25 History topical ointment Allergies Allergy/AdvReac Type Severity Reaction Status Date / Time No Known Allergies Allergy Verified 02/25/25 15:12 Vital Signs Vital Signs - 24 hr 02/25/25 12:59 02/25/25 14:06 02/25/25 15:39 Temperature 97.9 F Pulse Rate 98 87 85 Respiratory Rate 16 14 Blood Pressure 136/81 Pulse Oximetry 98 99 95 Oxygen Delivery 02/25/25 16:16 02/25/25 16:38 02/25/25 16:45 Temperature Pulse Rate 83 84 83 Respiratory Rate 12 14 17 Blood Pressure Pulse Oximetry 100 100 97 Oxygen Delivery 02/25/25 17:00 02/25/25 17:15 02/25/25 17:44 Temperature Pulse Rate 87 81 81 Respiratory Rate 19 13 15 Blood Pressure Pulse Oximetry 98 100 99 Oxygen Delivery 02/25/25 17:45 02/25/25 18:00 02/25/25 18:01 Temperature Pulse Rate 81 82 81 Respiratory Rate 14 16 16 Blood Pressure 161/81 H Pulse Oximetry 97 96 96 Oxygen Delivery 02/25/25 18:15 02/25/25 19:06 02/25/25 21:14 Temperature 99.3 F Pulse Rate 81 84 Respiratory Rate 16 18 Blood Pressure 143/70 H Pulse Oximetry 95 Oxygen Delivery Room Air Exam Const: General: comfortable and no acute distress Other: A&O x2 Eyes: Pupils: Equal, round and reactive pupils present Neck: Neck: supple Resp: Effort & Inspection: normal respiratory effort Auscultation: clear to auscultation bilaterally Cardio: Rate: regular rate Rhythm: regular rhythm GI: Inspection: non-distended GI Palp: Yes Soft to palpation : General: Yes bladder normal to palpation Neuro: Motor exam (neuro): 5/5 motor strength present throughout Extrem: General: no edema H&P: Results Labs Labs: Short CBC 02/25/25 Range/Units 14:32 WBC 9.1 (4.5-10.0) K/mm3 Hgb 15.8 (14.0-18.0) g/dL Hct 48.5 (42.0-52.0) % Plt Count 176 (150-375) k/mm3 [facility] 02/25/25 14:32 Sodium 135 L Potassium 4.7 Chloride 101 Carbon Dioxide 27 BUN 18 Creatinine 1.44 H Glucose 397 H Calcium 9.6 Cardiac Enzymes 02/25/25 Range/Units 14:32 Total Creatine Kinase 26 L (55-170) U/L Liver Function 02/25/25 Range/Units 14:32 Total Bilirubin 0.8 (0.2-1.3) mg/dL AST 19 (17-59) U/L ALT 12 (6-50) U/L Alkaline Phosphatase 169 H (38-126) U/L Albumin 3.8 (3.5-5.1) g/dL Urine 02/25/25 Range/Units 14:41 Urine Color Yellow (Yellow) Urine Appearance Clear (Clear) Urine pH 6.0 (5.0-9.0) Ur Specific [place] 1.031 (1.001-1.035) Urine Protein 3+ H (Negative) mg/dL Urine Glucose (UA) 3+ H (Negative) mg/dL Assessment and Plan Assessment and plan (1) Inability to ambulate due to knee: Code(s): R26.2 - Difficulty in walking, not elsewhere classified Status: Acute Assessment and Plan: Fall at home. PT OT evaluations. Fall precautions. Ambulate with assistance. No acute fractures. Check orthostatic vitals. Tylenol p.r.n. for his knee pain/arthritis. (2) Insulin dependent diabetes mellitus: Status: Acute Assessment and Plan: Uncontrolled blood sugars. Check HbA1c in the morning. Accu-Cheks a.c. HS with low-dose insulin sliding scale. (3) Elevated serum creatinine: Code(s): R79.89 - Other specified abnormal findings of blood chemistry Status: Acute Assessment and Plan: Unclear baseline. Could very well have CKD due to uncontrolled diabetes and his age. He has been volume resuscitated with 1 L lactated Ringer's. Continue with sodium chloride 100 cc/hour. Continue to trend renal function. (4) Altered mental status: Code(s): R41.82 - Altered mental status, unspecified Status: Acute Assessment and Plan: Daughter reports the patient was acting odd after receiving morphine in the ER. No history of neurocognitive disorder. Considering there reporting he hit his head will obtain a stat CT head. Avoid narcotics. Neuro checks q.4 hours. No Focal deficits. (5) Abnormal urinalysis: Code(s): R82.90 - Unspecified abnormal findings in urine Status: Acute Assessment and Plan: No symptomatology to indicate infection. Follow-up urine culture. Plan Patient lives with , normally walks with a walker. Daughter is POA. Patient giving inconsistent answers about CPR versus not. Daughter reports should be full code. Hospitalist MIPS Advance Care Plan I have confirmed that the patient's Advanced Care Plan is present, code status is documented, or surrogate decision maker is listed in patient medical record.: Yes Medication Reconciliation I have utilized all available resources to obtain, update and review the patients current medications (includes all prescriptions, OTC, herbals, cannabis, and nutritional supplements).: Yes
[2025-02-25] MEDS: SODIUM CHLORIDE 0.9% IV 1,000 ML 100 ML IV CONT (23:30)
--- NOTE | 2025-02-25 23:30 | PC.NURSE ---
Pt returned from CT 232
--- NOTE | 2025-02-25 23:31 | PC.NURSE ---
Pt returned to floor from CT at 2310. Recheck BS was 356. Non Acoustic Operator giving Novolog [address] Almaraz
[2025-02-25] MEDS: INSULIN ASPART (*BKC) 100 UNITS/ML SUB-Q (23:34)
[2025-02-26 04:31] VITALS: BP 162/80; PULSE 81; RESP 18; TEMP 37.6; O2SAT 94
[2025-02-26 05:54] LABS: Hematocrit 42.7 % (42.0-52.0); Hemoglobin 14.1 g/dL (14.0-18.0); Immature Granulocyte Percent A 0.4 % (0-0.5); Lymphocytes Absolute Auto 1.30 K/mm3 (0.9-3.2); Mean Corpuscular HGB Conc 33.0 g/dl (32-36); Mean Corpuscular Hemoglobin 29.3 pg (26-34); Mean Corpuscular Volume 88.6 fl (80-100); Nucleated Red Blood Cells Absolute Auto 0.000 K/mm3 (0.0-0.012); Nucleated Red Blood Cells Perc 0.0 % (0.0-0.2); Platelet Count Result 163 k/mm3 (150-375); Red Blood Count 4.82 M/mm3 (4.6-6.20); White Blood Count 8.0 K/mm3 (4.5-10.0)
[2025-02-26 06:17] LABS: Anion Gap 5 mmol/L (4-12); Blood Urea Nitrogen 17 mg/dL (9-20); Calcium 9.2 mg/dL (8.4-10.2); Carbon Dioxide 26 mmol/L (22-30); Chloride 102 mmol/L (98-107); Estimated CRCL calculation 43 ml/min; Estimated Glomerular Filt Rate 51; Glucose 175 mg/dL (65-110); Magnesium 2.0 mg/dL (1.6-2.3); Potassium 3.9 mmol/L (3.4-5.0); Sodium 133 mmol/L (137-145)
[2025-02-26 06:56] LABS: Hemoglobin A1C 12.2 % (<5.7)
[2025-02-26] MEDS: INSULIN ASPART (*BKC) 100 UNITS/ML SUB-Q ×5 (09:12→20:48)
[2025-02-26 10:43] VITALS: BMI 25.9
[2025-02-26 13:11] VITALS: BMI 25.9
[2025-02-26 14:08] VITALS: BP 171/81; PULSE 84; RESP 18; TEMP 36.3; O2SAT 95
--- NOTE | 2025-02-26 14:10 | P.PNIM_ITS ---
Progress Note: A&P Assessment and Plan (1) Inability to ambulate due to knee: Code(s): R26.2 - Difficulty in walking, not elsewhere classified Status: Acute Assessment and Plan: Fall at home. PT OT evaluations. Fall precautions. Ambulate with assistance. Reviewed x-rays. No acute fractures. Check orthostatic vitals. Tylenol p.r.n. for his knee pain/arthritis. (2) Insulin dependent diabetes mellitus: Status: Acute Assessment and Plan: Uncontrolled blood sugars. A1c 12.2. Accu-Cheks a.c. HS with low-dose insulin sliding scale. (3) Elevated serum creatinine: Code(s): R79.89 - Other specified abnormal findings of blood chemistry Status: Acute Assessment and Plan: Unclear baseline. Improving Received sodium chloride 100 cc/hour. Continue to trend renal function. (4) Altered mental status: Code(s): R41.82 - Altered mental status, unspecified Status: Acute Assessment and Plan: Daughter reports the patient was acting odd after receiving morphine in the ER. No history of neurocognitive disorder. Avoid narcotics. Neuro checks q.4 hours[address] F[address] deficits. CT head unremarkable (5) Abnormal urinalysis: Code(s): R82.90 - Unspecified abnormal findings in urine Status: Acute Assessment and Plan: No symptomatology to indicate infection. Follow-up urine culture. Plan full code. Subjective Date/time seen: 02/26/25 14:10 Interval history: Patient was seen and examined at bedside. He is feeling fine. Denies any chest pain, shortness of breath, abdominal pain, nausea vomiting. Complaining of bilateral knee pain. No acute event overnight. Lab test showed creatinine 1.24, WBC 8 Review of Systems Review of Systems: All systems reviewed & are unremarkable except as noted in HPI and below (Subjective/HPI) Exam Const: General: comfortable and no acute distress Other: A&O x2 Eyes: Pupils: Equal, round and reactive pupils present Neck: Neck: supple Resp: Effort & Inspection: normal respiratory effort Auscultation: clear to auscultation bilaterally Cardio: Rate: regular rate Rhythm: regular rhythm GI: Inspection: non-distended : General: Yes bladder normal to palpation Neuro: Cranial nerves: Yes Equal, round and reactive pupils present Motor exam (neuro): 5/5 motor strength present throughout Extrem: General: no edema Objective Data Vital Signs Vital Signs: Vital Signs - 24 hr 02/25/25 15:39 02/25/25 16:16 02/25/25 16:38 Temperature Pulse Rate 85 83 84 Respiratory Rate 12 14 Blood Pressure Pulse Oximetry 95 100 100 Oxygen Delivery 02/25/25 16:45 02/25/25 17:00 02/25/25 17:15 Temperature Pulse Rate 83 87 81 Respiratory Rate 17 19 13 Blood Pressure Pulse Oximetry 97 98 100 Oxygen Delivery 02/25/25 17:44 02/25/25 17:45 02/25/25 18:00 Temperature Pulse Rate 81 81 82 Respiratory Rate 15 14 16 Blood Pressure Pulse Oximetry 99 97 96 Oxygen Delivery 02/25/25 18:01 02/25/25 18:15 02/25/25 19:06 Temperature Pulse Rate 81 81 Respiratory Rate 16 16 Blood Pressure 161/81 H Pulse Oximetry 96 Oxygen Delivery Room Air 02/25/25 21:14 02/26/25 04:31 02/26/25 08:00 Temperature 99.3 F 99.7 F H Pulse Rate 84 81 Respiratory Rate 18 18 Blood Pressure 143/70 H 162/80 H Pulse Oximetry 95 94 Oxygen Delivery Room Air Intake/Output Intake/Output: Intake & Output 02/23/25 02/24/25 02/25/25 02/26/25 23:59 23:59 23:59 23:59 Intake Total 1240 440 Balance 1240 440 Meds/Results Medications: Active Medications Generic Name Dose Route Start Last Admin Trade Name Freq PRN Reason Stop Dose Admin Acetaminophen 650 mg 02/25/25 22:45 Acetaminophen 325 Mg Tablet PO Q6H PRN Mild Pain (1-3) or Fever Dextrose 12.5 gm 02/25/25 22:45 Dextrose 50% 25 Gm/50 Ml Syringe IV PUSH PRN PRN Hypoglycemia Protocol Glucose 15 gm 02/25/25 22:45 Glucose Oral Gel 15 Gm Of Glucse In 37.5 Gm Tube PO PRN PRN Hypoglycemia Protocol Dextrose 1,000 mls @ 100 mls/hr 02/25/25 22:45 Dextrose 5% 1,000 Ml IVPB PRN PRN Hypoglycemia Protocol Sodium Chloride 1,000 mls @ 100 mls/hr 02/25/25 22:50 02/25/25 23:30 Normal Saline Iv IV CONT 100 mls/hr .Q10H NIKKO Administration Insulin Aspart 2 - 5 units 02/26/25 08:00 02/26/25 12:55 Insulin Aspart (*Bkc) 100 Units/Ml SUB-Q 3 units TIDWM NIKKO Administration Protocol Insulin Aspart 1 - 2 units 02/25/25 22:50 02/25/25 23:29 Insulin Aspart (*Bkc) 100 Units/Ml SUB-Q Not Given HS [facility] Protocol Triamcinolone Acetonide 1 applic 02/25/25 22:37 Triamcinolone Acet 0.1% Oint 15 Gm Tube TOPICAL BID PRN itching Radiology Results: ITS Impressions Knee X-Ray 02/25/25 17:02 IMPRESSION: 1. No joint effusions or acute osseous abnormality at either knee. Knee X-Ray 02/25/25 17:02 IMPRESSION: 1. No joint effusions or acute osseous abnormality at either knee. Pelvis X-Ray 02/25/25 17:05 IMPRESSION: 1. 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 No acute osseous abnormality. Head CT 02/26/25 07:49 Impression: No acute intracranial hemorrhage or suspicious mass effect. Labs Labs: Laboratory Results - last 24 hr 02/25/25 02/25/25 02/25/25 14:32 14:41 21:34 WBC 9.1 RBC 5.49 Hgb 15.8 Hct 48.5 MCV 88.3 MCH 28.8 MCHC 32.6 RDW 13.7 Plt Count 176 MPV 8.9 Immature Gran % (Auto) 0.5 Neut % (Auto) 81.8 H Lymph % (Auto) 9.8 L Robertson % (Auto) 5.7 Eos % (Auto) 1.8 Baso % (Auto) 0.4 Lymph # (Auto) 0.90 Robertson # (Auto) 0.5 Eos # (Auto) 0.2 Baso # (Auto) 0.0 Abs Immat Gran (auto) 0.05 H Absolute Neuts (auto) 7.5 H Absolute Nucleated RBC 0.000 Nucleated RBC % 0.0 Sodium 135 L Potassium 4.7 Chloride 101 Carbon Dioxide 27 Anion Gap 7 BUN 18 Creatinine 1.44 H Estim Creat Clear Calc 40 Estimated GFR 47 L Glucose 397 H POC Capillary Glucose 403 H Hemoglobin A1c Lactic Acid 1.5 Calcium 9.6 Magnesium Total Bilirubin 0.8 AST 19 ALT 12 Alkaline Phosphatase 169 H Total Creatine Kinase 26 L Total Protein 7.3 Albumin 3.8 Urine Color Yellow Urine Appearance Clear Urine pH 6.0 Ur Specific Trinity 1.031 Urine Protein 3+ H Urine Glucose (UA) 3+ H Urine Ketones Trace H Ur Blood (Man) Negative Urine Nitrate Negative Urine Bilirubin Negative Urine Urobilinogen 1.0 Leukocyte Esterase Rfl Trace H Urine RBC 3-5 H Urine WBC 21-50 H Ur Squamous Epith Cells None seen Urine Bacteria None seen Urine Casts 0-2 02/25/25 02/26/25 02/26/25 23:14 01:26 05:47 WBC 8.0 RBC 4.82 Hgb 14.1 Hct 42.7 MCV 88.6 MCH 29.3 MCHC 33.0 RDW 13.7 Plt Count 163 MPV 8.3 Immature Gran % (Auto) 0.4 Neut % (Auto) 71.9 Lymph % (Auto) 16.2 L Robertson % (Auto) 7.8 Eos % (Auto) 3.2 Baso % (Auto) 0.5 Lymph # (Auto) 1.30 Robertson # (Auto) 0.6 Eos # (Auto) 0.3 Baso # (Auto) 0.0 Abs Immat Gran (auto) 0.03 Absolute Neuts (auto) 5.8 Absolute Nucleated RBC 0.000 Nucleated RBC % 0.0 Sodium 133 L Potassium 3.9 Chloride 102 Carbon Dioxide 26 Anion Gap 5 BUN 17 Creatinine 1.34 H Estim Creat Clear Calc 43 Estimated GFR 51 L Glucose 175 H POC Capillary Glucose 352 H 151 H Hemoglobin A1c 12.2 H Lactic Acid Calcium 9.2 Magnesium 2.0 Total Bilirubin AST ALT Alkaline Phosphatase Total Creatine Kinase Total Protein Albumin Urine Color Urine Appearance Urine pH Ur Specific Trinity Urine Protein Urine Glucose (UA) Urine Ketones Ur Blood (Man) Urine Nitrate Urine Bilirubin Urine Urobilinogen Leukocyte Esterase Rfl Urine RBC Urine WBC Ur Squamous Epith Cells Urine Bacteria Urine Casts 02/26/25 02/26/25 08:51 12:03 WBC RBC Hgb Hct MCV MCH MCHC RDW Plt Count MPV Immature Gran % (Auto) Neut % (Auto) Lymph % (Auto) Robertson % (Auto) Eos % (Auto) Baso % (Auto) Lymph # (Auto) Robertson # (Auto) Eos # (Auto) Baso # (Auto) Abs Immat Gran (auto) Absolute Neuts (auto) Absolute Nucleated RBC Nucleated RBC % Sodium Potassium Chloride Carbon Dioxide Anion Gap BUN Creatinine Estim Creat Clear Calc Estimated GFR Glucose POC Capillary Glucose 227 H 285 H Hemoglobin A1c Lactic Acid Calcium Magnesium Total Bilirubin AST ALT Alkaline Phosphatase Total Creatine Kinase Total Protein Albumin Urine Color Urine Appearance Urine pH Ur Specific Trinity Urine Protein Urine Glucose (UA) Urine Ketones Ur Blood (Man) Urine Nitrate Urine Bilirubin Urine Urobilinogen Leukocyte Esterase Rfl Urine RBC Urine WBC Ur Squamous Epith Cells Urine Bacteria Urine Casts
[2025-02-26 15:40] VITALS: O2SAT 96
[2025-02-26] MEDS: NICOTINE (*PBKC) 21 MG PATCH 1 PATCH TRANSDERM (17:57)
[2025-02-26 20:45] VITALS: BP 175/85; PULSE 82; RESP 18; TEMP 36.6; O2SAT 95
[2025-02-26] MEDS: INSULIN GLARGINE (*BKC) 100 UNITS/ML 8 UNITS SUB-Q (20:48)
[2025-02-26 20:52] VITALS: BP 172/80
[2025-02-26] MEDS: ACETAMINOPHEN 325 MG TABLET 650 MG PO (22:06)
[2025-02-27 05:52] LABS: Hematocrit 42.5 % (42.0-52.0); Hemoglobin 13.9 g/dL (14.0-18.0); Mean Corpuscular HGB Conc 32.7 g/dl (32-36); Mean Corpuscular Hemoglobin 29.0 pg (26-34); Mean Corpuscular Volume 88.5 fl (80-100); Platelet Count Result 154 k/mm3 (150-375); Red Blood Count 4.80 M/mm3 (4.6-6.20); White Blood Count 6.6 K/mm3 (4.5-10.0)
[2025-02-27 06:00] VITALS: BP 158/89; PULSE 72; RESP 18; TEMP 36.7; O2SAT 96
[2025-02-27 06:27] LABS: Anion Gap 3 mmol/L (4-12); Blood Urea Nitrogen 19 mg/dL (9-20); Calcium 9.3 mg/dL (8.4-10.2); Carbon Dioxide 27 mmol/L (22-30); Chloride 104 mmol/L (98-107); Estimated CRCL calculation 43 ml/min; Estimated Glomerular Filt Rate 51; Glucose 238 mg/dL (65-110); Potassium 3.9 mmol/L (3.4-5.0); Sodium 134 mmol/L (137-145)
--- NOTE | 2025-02-27 08:16 | P.PNIM_ITS ---
Progress Note: A&P Assessment and Plan (1) Inability to ambulate due to knee: Code(s): R26.2 - Difficulty in walking, not elsewhere classified Status: Acute Assessment and Plan: * Fall at home. * PT OT evaluations. Fall precautions. Ambulate with assistance. * Reviewed x-rays. No acute fractures. * Check orthostatic vitals. * Tylenol p.r.n. for his knee pain/arthritis. * Working with CC regarding placement to rehab facility upon discharge (2) Insulin dependent diabetes mellitus: Status: Acute Assessment and Plan: * Uncontrolled blood sugars * A1c 12.2. * Accu-Cheks a.c. HS with low-dose insulin sliding scale. (3) Elevated serum creatinine: Code(s): R79.89 - Other specified abnormal findings of blood chemistry Status: Acute Assessment and Plan: * Unclear baseline. * Improving * Received sodium chloride 100 cc/hour. * Continue to trend renal function. * 02/27: Cr 1.34 - continue IVF (4) Altered mental status: Code(s): R41.82 - Altered mental status, unspecified Status: Acute Assessment and Plan: * Daughter reports the patient was acting odd after receiving morphine in the ER. No history of neurocognitive disorder. Avoid narcotics. Neuro checks q.4 hours. No Focal deficits. * CT head unremarkable * CXR: Mild discoid atelectasis in the left lower lung zone. No other acute cardiopulmonary disease. * UA: WBCs but no bacteria or nitrates * WBC: 6.6 * No Focal deficits (5) Abnormal urinalysis: Code(s): R82.90 - Unspecified abnormal findings in urine Status: Acute Assessment and Plan: * No symptomatology to indicate infection. Follow-up urine culture. Plan full code. Subjective Date/time seen: 02/27/25 08:16 Interval history: 79-year-old male with history of insulin-dependent diabetes however noncompliant, presents to [facility] ER on 02/25/2025 as he lost his balance and fell onto his knees at home and then hit his head. He typically uses a walker. His daughter Savannah helps with history over the phone. 02/27/2025 Patient resting comfortably in bed at time of examination. Denies any pain at this time. States that he has been experiencing bilateral knee pain since his fall on , but patient does not appear to be in any pain or distress at this time. Imaging and physical exam reassuring/benign. CBC unremarkable, CMP shows elevated but improving kidney function, creatinine 1.34, down from 1.44 upon admission, although baseline is unknown at this time. Working with care coordination regarding placement to rehab facility upon discharge. Review of Systems Review of Systems: All systems reviewed & are unremarkable except as noted in HPI and below (Subjective/HPI) Exam Const: General: comfortable and no acute distress Other: A&O x2 Eyes: Pupils: Equal, round and reactive pupils present Neck: Neck: supple Resp: Effort & Inspection: normal respiratory effort Auscultation: clear to auscultation bilaterally Cardio: Rate: regular rate Rhythm: regular rhythm GI: Inspection: non-distended : General: Yes bladder normal to palpation Neuro: Cranial nerves: Yes Equal, round and reactive pupils present Motor exam (neuro): 5/5 motor strength present throughout Extrem: General: no edema Objective Data Vital Signs Vital Signs: Vital Signs - 24 hr 02/26/25 14:08 02/26/25 14:34 02/26/25 15:40 Temperature 97.4 F L Pulse Rate 84 Respiratory Rate 18 Blood Pressure 171/81 H Pulse Oximetry 95 96 Oxygen Delivery Room Air Room Air 02/26/25 20:45 02/26/25 20:52 02/27/25 06:00 Temperature 98 F 98.1 F Pulse Rate 82 72 Respiratory Rate 18 18 Blood Pressure 175/85 H 172/80 H 158/89 H Pulse Oximetry 95 96 Oxygen Delivery Intake/Output Intake/Output: Intake & Output 02/24/25 02/25/25 02/26/25 02/27/25 23:59 23:59 23:59 23:59 Intake Total 1240 1060 100 Output Total 1550 500 Balance 1240 -490 -400 Meds/Results Medications: Active Medications Generic Name Dose Route Start Last Admin Trade Name Freq PRN Reason Stop Dose Admin Acetaminophen 650 mg 02/25/25 22:45 02/26/25 22:06 Acetaminophen 325 Mg Tablet PO 650 mg Q6H PRN Administration Mild Pain (1-3) or Fever Dextrose 12.5 gm 02/25/25 22:45 Dextrose 50% 25 Gm/50 Ml Syringe IV PUSH PRN PRN Hypoglycemia Protocol Glucose 15 gm 02/25/25 22:45 Glucose Oral Gel 15 Gm Of Glucse In 37.5 Gm Tube PO PRN PRN Hypoglycemia Protocol Dextrose 1,000 mls @ 100 mls/hr 02/25/25 22:45 Dextrose 5% 1,000 Ml IVPB PRN PRN Hypoglycemia Protocol Insulin Aspart 2 - 5 units 02/26/25 08:00 02/26/25 17:48 Insulin Aspart (*Bkc) 100 Units/Ml SUB-Q 3 units TIDWM NIKKO Administration Protocol Insulin Aspart 1 - 2 units 02/25/25 22:50 02/26/25 20:48 Insulin Aspart (*Bkc) 100 Units/Ml SUB-Q 2 units HS NIKKO Administration Protocol Insulin Aspart 2 units 02/26/25 17:00 02/26/25 17:49 Insulin Aspart (*Bkc) 100 Units/Ml SUB-Q 2 units TIDWM NIKKO Administration Insulin Glargine 8 units 02/26/25 21:00 02/26/25 20:48 Insulin Glargine (*Bkc) 100 Units/Ml SUB-Q 8 units HS NIKKO Administration Nicotine 1 patch 02/26/25 15:10 02/26/25 17:57 Nicotine (*Pbkc) 21 Mg Patch TRANSDERM 1 patch DAILY NIKKO Administration Triamcinolone Acetonide 1 applic 02/25/25 22:37 Triamcinolone Acet 0.1% Oint 15 Gm Tube TOPICAL BID PRN itching Radiology Results: ITS Impressions Knee X-Ray 02/25/25 17:02 IMPRESSION: 1. No joint effusions or acute osseous abnormality at either knee. Knee X-Ray 02/25/25 17:02 IMPRESSION: 1. No joint effusions or acute osseous abnormality at either knee. Pelvis X-Ray 02/25/25 17:05 IMPRESSION: 1. 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 No acute osseous abnormality. Head CT 02/26/25 07:49 Impression: No acute intracranial hemorrhage or suspicious mass effect. Labs Labs: Laboratory Results - last 24 hr 02/26/25 02/26/25 02/26/25 08:51 12:03 17:32 WBC RBC Hgb Hct MCV MCH MCHC RDW Plt Count MPV Sodium Potassium Chloride Carbon Dioxide Anion Gap BUN Creatinine Estim Creat Clear Calc Estimated GFR Glucose POC Capillary Glucose 227 H 285 H 299 H Calcium 02/26/25 02/27/25 20:47 05:47 WBC 6.6 RBC 4.80 Hgb 13.9 L Hct 42.5 MCV 88.5 MCH 29.0 MCHC 32.7 RDW 13.3 Plt Count 154 MPV 8.6 Sodium 134 L Potassium 3.9 Chloride 104 Carbon Dioxide 27 Anion Gap 3 L BUN 19 Creatinine 1.34 H Estim Creat Clear Calc 43 Estimated GFR 51 L Glucose 238 H POC Capillary Glucose 318 H Calcium 9.3
[2025-02-27] MEDS: NICOTINE (*PBKC) 21 MG PATCH 1 PATCH TRANSDERM (08:18)
[2025-02-27] MEDS: INSULIN ASPART (*BKC) 100 UNITS/ML SUB-Q ×3 (08:59→17:58)
[2025-02-27] MEDS: ACETAMINOPHEN 325 MG TABLET 650 MG PO (11:49)
[2025-02-27] MEDS: INSULIN ASPART (*BKC) 100 UNITS/ML 10 UNITS SUB-Q (13:25)
[2025-02-27 14:00] VITALS: BP 125/80; PULSE 83; RESP 18; TEMP 36.3; O2SAT 100
[2025-02-27 22:00] VITALS: BP 159/77; PULSE 95; RESP 16; TEMP 36.9; O2SAT 95
--- NOTE | 2025-02-27 22:03 | PC.NURSE ---
patient refsuing eveing Novolog and Lantus. [employer] and second nurse educated patient and he still refused stating he has not taken insulin in one year and hes tired of us giving him shots so frequently. patient is AxO 4 at the time
[2025-02-28] MEDS: ACETAMINOPHEN 325 MG TABLET 650 MG PO ×2 (00:29→23:10)
[2025-02-28 05:40] VITALS: BP 164/84; PULSE 73; RESP 16; TEMP 36.6; O2SAT 95
--- NOTE | 2025-02-28 07:25 | P.PNIM_ITS ---
Progress Note: A&P Assessment and Plan (1) Inability to ambulate due to knee: Code(s): R26.2 - Difficulty in walking, not elsewhere classified Status: Acute Assessment and Plan: * Fall at home. * PT OT evaluations. Fall precautions. Ambulate with assistance. * Reviewed x-rays. No acute fractures. * Check orthostatic vitals. * Tylenol p.r.n. for his knee pain/arthritis. * Working with CC regarding placement to rehab facility upon discharge * Still pending placement (2) Insulin dependent diabetes mellitus: Status: Acute Assessment and Plan: * Uncontrolled blood sugars * A1c 12.2. * Accu-Cheks a.c. HS with low-dose insulin sliding scale. (3) Elevated serum creatinine: Code(s): R79.89 - Other specified abnormal findings of blood chemistry Status: Acute Assessment and Plan: * Unclear baseline. * Improving * Received sodium chloride 100 cc/hour. * Continue to trend renal function. * 02/28: Cr 1.30 - continue IVF (4) Altered mental status: Code(s): R41.82 - Altered mental status, unspecified Status: Acute Assessment and Plan: * Daughter reports the patient was acting odd after receiving morphine in the ER. No history of neurocognitive disorder. Avoid narcotics. Neuro checks q.4 hours. No Focal deficits. * CT head unremarkable * CXR: Mild discoid atelectasis in the left lower lung zone. No other acute cardiopulmonary disease. * UA: WBCs but no bacteria or nitrates * WBC: 5.4 * No Focal deficits (5) Abnormal urinalysis: Code(s): R82.90 - Unspecified abnormal findings in urine Status: Acute Assessment and Plan: * No symptomatology to indicate infection. Follow-up urine culture. Plan full code. Subjective Date/time seen: 02/28/25 07:25 Interval history: 79-year-old male with history of insulin-dependent diabetes however noncompliant, presents to [facility] ER on 02/25/2025 as he lost his balance and fell onto his knees at home and then hit his head. He typically uses a walker. His daughter Savannah helps with history over the phone. 02/28/2025 Patient sitting up in bed eating lunch at time of examination. Appears more alert today, denies any pain at this time. Pending placement and authorization at this time, no other comments or concerns. Blood work and vitals remain stab le/unremarkable. Review of Systems Review of Systems: All systems reviewed & are unremarkable except as noted in HPI and below (Subjective/HPI) Exam Const: General: comfortable and no acute distress Other: A&O x2 Eyes: Pupils: Equal, round and reactive pupils present Neck: Neck: supple Resp: Effort & Inspection: normal respiratory effort Auscultation: clear to auscultation bilaterally Cardio: Rate: regular rate Rhythm: regular rhythm GI: Inspection: non-distended : General: Yes bladder normal to palpation Neuro: Cranial nerves: Yes Equal, round and reactive pupils present Motor exam (neuro): 5/5 motor strength present throughout Extrem: General: no edema Objective Data Vital Signs Vital Signs: Vital Signs - 24 hr 02/27/25 09:00 02/27/25 11:34 02/27/25 14:00 Temperature 97.3 F L Pulse Rate 83 Respiratory Rate 18 Blood Pressure 125/80 Pulse Oximetry 100 Oxygen Delivery Room Air Room Air 02/27/25 22:00 02/28/25 05:40 Temperature 98.4 F 97.9 F Pulse Rate 95 73 Respiratory Rate 16 16 Blood Pressure 159/77 H 164/84 H Pulse Oximetry 95 95 Oxygen Delivery Intake/Output Intake/Output: Intake & Output 02/25/25 02/26/25 02/27/25 02/28/25 23:59 23:59 23:59 23:59 Intake Total 1240 1060 2850 Output Total 1550 1400 Balance 1240 -490 1450 Meds/Results Medications: Active Medications Generic Name Dose Route Start Last Admin Trade Name Freq PRN Reason Stop Dose Admin Acetaminophen 650 mg 02/25/25 22:45 02/28/25 00:29 Acetaminophen 325 Mg Tablet PO 650 mg Q6H PRN Administration Mild Pain (1-3) or Fever Bisacodyl 10 mg 02/27/25 18:02 Bisacodyl 10 Mg Suppository RECTAL ONCE PRN Constipation Dextrose 12.5 gm 02/25/25 22:45 Dextrose 50% 25 Gm/50 Ml Syringe IV PUSH PRN PRN Hypoglycemia Protocol Glucose 15 gm 02/25/25 22:45 Glucose Oral Gel 15 Gm Of Glucse In 37.5 Gm Tube PO PRN PRN Hypoglycemia Protocol Dextrose 1,000 mls @ 100 mls/hr 02/25/25 22:45 Dextrose 5% 1,000 Ml IVPB PRN PRN Hypoglycemia Protocol Insulin Aspart 2 units 02/26/25 17:00 02/27/25 17:58 Insulin Aspart (*Bkc) 100 Units/Ml SUB-Q 2 units TIDWM NIKKO Administration Insulin Aspart 2 - 5 units 02/27/25 17:00 02/27/25 17:58 Insulin Aspart (*Bkc) 100 Units/Ml SUB-Q Not Given TIDWM NIKKO Protocol Insulin Aspart 1 - 2 units 02/27/25 21:00 02/27/25 22:02 Insulin Aspart (*Bkc) 100 Units/Ml SUB-Q Not Given HS NIKKO Protocol Insulin Glargine 8 units 02/26/25 21:00 02/27/25 22:02 Insulin Glargine (*Bkc) 100 Units/Ml SUB-Q Not Given HS NIKKO Nicotine 1 patch 02/26/25 15:10 02/27/25 08:18 Nicotine (*Pbkc) 21 Mg Patch TRANSDERM 1 patch DAILY NIKKO Administration Triamcinolone Acetonide 1 applic 02/25/25 22:37 Triamcinolone Acet 0.1% Oint 15 Gm Tube TOPICAL BID PRN itching Radiology Results: ITS Impressions Knee X-Ray 02/25/25 17:02 IMPRESSION: 1. No joint effusions or acute osseous abnormality at either knee. Knee X-Ray 02/25/25 17:02 IMPRESSION: 1. No joint effusions or acute osseous abnormality at either knee. Pelvis X-Ray 02/25/25 17:05 IMPRESSION: 1. 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 No acute osseous abnormality. Head CT 02/26/25 07:49 Impression: No acute intracranial hemorrhage or suspicious mass effect. Chest X-Ray 02/27/25 09:46 IMPRESSION: 1. Mild discoid atelectasis in the left lower lung zone. No other acute cardiopulmonary disease. Labs Labs: Laboratory Results - last 24 hr 02/27/25 02/27/25 02/27/25 08:04 11:57 15:46 POC Capillary Glucose 254 H 410 H 228 H 02/27/25 02/27/25 17:29 20:58 POC Capillary Glucose 190 H 289 H
[2025-02-28 07:40] LABS: Hematocrit 45.3 % (42.0-52.0); Hemoglobin 14.8 g/dL (14.0-18.0); Immature Granulocyte Percent A 0.4 % (0-0.5); Lymphocytes Absolute Auto 0.96 K/mm3 (0.9-3.2); Mean Corpuscular HGB Conc 32.7 g/dl (32-36); Mean Corpuscular Hemoglobin 28.8 pg (26-34); Mean Corpuscular Volume 88.3 fl (80-100); Nucleated Red Blood Cells Absolute Auto 0.000 K/mm3 (0.0-0.012); Nucleated Red Blood Cells Perc 0.0 % (0.0-0.2); Platelet Count Result 169 k/mm3 (150-375); Red Blood Count 5.13 M/mm3 (4.6-6.20); White Blood Count 5.4 K/mm3 (4.5-10.0)
[2025-02-28 07:55] LABS: Anion Gap 5 mmol/L (4-12); Blood Urea Nitrogen 18 mg/dL (9-20); Calcium 9.6 mg/dL (8.4-10.2); Carbon Dioxide 26 mmol/L (22-30); Chloride 104 mmol/L (98-107); Estimated CRCL calculation 44 ml/min; Estimated Glomerular Filt Rate 53; Glucose 257 mg/dL (65-110); Potassium 4.2 mmol/L (3.4-5.0); Sodium 135 mmol/L (137-145)
[2025-02-28] MEDS: NICOTINE (*PBKC) 21 MG PATCH 1 PATCH TRANSDERM (09:28)
[2025-02-28] MEDS: INSULIN ASPART (*BKC) 100 UNITS/ML SUB-Q ×6 (09:28→17:58)
[2025-02-28 14:00] VITALS: BP 148/66; PULSE 88; RESP 18; TEMP 36.8; O2SAT 97
[2025-02-28 21:00] VITALS: PULSE 80; RESP 18; O2SAT 95
[2025-02-28 21:52] VITALS: BP 175/78; PULSE 80; RESP 18; TEMP 36.4; O2SAT 95
--- NOTE | 2025-02-28 21:53 | PC.NURSE ---
Patient blood sugar 262, per protocol patient is to receive 1unit of Novolog insulin and scheduled Lantus 8units. Patient refused insulin, education provided, patient states understanding and still refuses. Patient A&Ox4, able to voice needs/concerns. Currently resting in bed with HOB elevated. Call light in reach
[2025-03-01 06:00] VITALS: BP 169/73; PULSE 79; RESP 18; TEMP 36.6; O2SAT 93
[2025-03-01] MEDS: INSULIN ASPART (*BKC) 100 UNITS/ML SUB-Q ×4 (08:42→12:06)
[2025-03-01] MEDS: NICOTINE (*PBKC) 21 MG PATCH 1 PATCH TRANSDERM (08:42)
[2025-03-01 14:00] VITALS: BP 119/68; PULSE 89; RESP 16; TEMP 36.7; O2SAT 99
--- NOTE | 2025-03-01 15:00 | PCOTNOTE ---
Patient refused to participate. Patient stated he worked hard earlier and is all done, I'm tired and want to go home.
--- NOTE | 2025-03-01 15:05 | P.DS_ITS ---
DS: Admitting Diagnosis Discharge Date 03/01/2025 Admitting Diagnosis Inability to ambulate due to knee DS: Discharge Diagnosis Discharge Diagnosis (1) Inability to ambulate due to knee: Code(s): R26.2 - Difficulty in walking, not elsewhere classified Status: Acute (2) Insulin dependent diabetes mellitus: Status: Acute (3) Elevated serum creatinine: Code(s): R79.89 - Other specified abnormal findings of blood chemistry Status: Acute (4) Altered mental status: Code(s): R41.82 - Altered mental status, unspecified Status: Acute (5) Abnormal urinalysis: Code(s): R82.90 - Unspecified abnormal findings in urine Status: Acute DS: Summary Hospital Course Reason for hospitalization: Fall at home Hospital Course: 79-year-old male with history of insulin-dependent diabetes however noncompliant, presents to [facility] ER on 02/25/2025 as he lost his balance and fell onto his knees at home and then hit his head. He typically uses a walker. His daughter Savannah helps with history over the phone. After he had fallen they were able to get him up but he was complaining of so much pain later that he was brought in. The patient is reportedly very stubborn not complain of pain or ever leave the house. He also self reports he stopped taking insulin because it costs too much. Serum creatinine 1.44 glucose 397. Analysis WBCs but no bacteria or nitrates. Patient denies urinary symptoms. Bilateral knee x-rays without acute findings. X-ray pelvis [id number] bilateral hip and sacroiliac osteoarthritis. No acute findings. He was given 1 L lactated Ringer's, morphine 2 mg IV. Bilateral knee x-rays obtained which showed no joint effusions or acute osseous abnormality the knee. Pelvis x-ray showed mild to moderate bilateral hip and sacroiliac osteoarthritis. No acute osseous abnormality. CT showed no acute intracranial hemorrhage or suspicious mass-effect. Chest XR showed Mild discoid atelectasis in the left lower lung zone. No other acute cardiopulmonary disease. Throughout admission, CBC remained unremarkable. He did appear to have slightly impaired kidney function upon admisison with a creatinine of 1.44 and a GFR of 47, however with IVFs this decreased overtime and on 03/01, his creatinine was 1.3 and GFR was 53. Urine cultures were obtained and did not show evidence of bacterial growth so UTI ruled out. Pt worked with PT/OT who states that the patient demonstrates CGA bed mobility, minimum to CGA transfers, and minimum assist with gait. They states that he has increased his gait distance again today but had difficulty maintaining a good gait pattern and towards the end of the session started endorsing increased weakness. They would recommend continued rehab whether it be SNF or home with home health services. Patient vehemently declines further rehab via SNF and would prefer to be discharged home. We worked with care coordination regarding placement and we were able to set up home health services and pt was otherwise medically clear for discharge at this time. Pt is amenable to this plan - plan for discharge at this time. Status at Discharge Functional status at discharge: uses cane/walker Overall status at discharge: patient is progressing back to baseline Time Spent with Patient Time attestation: Total time spent providing and/or coordinating discharge services: 48 Exam Const: General: comfortable and no acute distress Other: A&O x2 Eyes: Pupils: Equal, round and reactive pupils present Neck: Neck: supple Resp: Effort & Inspection: normal respiratory effort Auscultation: clear to auscultation bilaterally Cardio: Rate: regular rate Rhythm: regular rhythm GI: Inspection: non-distended : General: Yes bladder normal to palpation Neuro: Cranial nerves: Yes Equal, round and reactive pupils present Motor exam (neuro): 5/5 motor strength present throughout Extrem: General: no edema DS: Data Data Completed and Pending Labs on day of discharge: Labs from last 24 hours 03/01/25 03/01/25 02/28/25 11:50 08:00 21:27 POC Capillary Glucose 259 H 252 H 262 H 02/28/25 17:08 POC Capillary Glucose 266 H Discharge Plan Discharge Attending physician on discharge: Ovi Elliott Consulting providers: Miguel Ledesma; Gee Cox Discharging Clinician: Gee Cox Anticipated Discharge Date/Time: 03/01/25 14:49 Patient Disposition: Home with Home Health Service Activity: no straining and as tolerated Diet: heart healthy Discharge Instructions: Discharge disposition: Home with home health Take medications as prescribed Monitor blood pressures Take caution while standing, rising, or moving Change positions slowly taking a break between each position change If you standing feel dizzy sit back down and take a break Encouraged to continue with yearly vaccinations Return to the emergency department if he developed sudden shortness of breath, chest pain, nausea, vomiting, upset stomach or intractable diarrhea Return to the emergency department if you develop fever greater than 101.5 Follow-up with the primary care physician within 1-2 weeks Thank you for choosing [facility] for your healthcare needs Patient Instructions: Antibiotic Form, Basic Carbohydrate Counting (DC) Patient Language: Albanian Stand Alone Forms: General Discharge Information Follow-up/Referrals: Grace Mars MD [Primary Care Provider] - Discharge Medications: Continued triamcinolone acetonide 0.1 % ointment 1 applic TOPICAL BID PRN (Reason: itching) Rx Instructions: lower legs and back Date of admission: 02/26/25 13:00 Primary Care Provider: Grace Mars Admitting Provider: Pradeep Yates Attending physician on admission: Pradeep Yates Condition: Guarded Prognosis
--- NOTE | 2025-03-11 15:08 | PCCDE ---
DM Educator courtesy follow up call placed. stating patient not home., glucose running high. Denies any Insulin at home. stating daughter handles things, is uncertain if PCP appt scheduled. - Advised of Novolin 70/30 (no Rx required) however, dosing requires Rx. (pt had taken insulin years ago) - educated timing mix insulin and importance balance po intake. - Discussed potential need ER dependent on glucose readings. - Discussed importance seeing new PCP. Promptly (health/Insulin Rx and updated regimen)
== END 2025-03-01 16:30 | disposition home health service (06) | DRG 556 ==
LOC: ANHED 14:46 → ANH3MED 17:31
PROVIDERS: General Practice; Internal Medicine; Admitting Provider Internal Medicine; Emergency Provider Emergency Medicine; PCP Family Medicine; Visit Provider Physician Assistant
DX: R26.2 Difficulty in walking, not elsewhere classified (principal); E11.9 Type 2 diabetes mellitus without complications; M16.0 Bilateral primary osteoarthritis of hip; M46.1 Sacroiliitis, not elsewhere classified; R41.82 Altered mental status, unspecified; R79.89 Other specified abnormal findings of blood chemistry; W19.XXXA Unspecified fall, initial encounter; Z91.148 Patient's other noncompliance with medication regimen for other reason
CPT/HCPCS: 36415; 70450; 71045; 72170; 73562; 80048; 80053; 81001; 82550; 82948; 83036; 83605; 83735; 85025; 85027; 87086; 96361; 96374; 97110; 97116; 97162; 97165; 99285; A9270; G0378; J1815; J2270; J7030; J7120